=== PATIENT | male | born 1970 | race Caucasian/White ===

== ENCOUNTER 2022-01-03 15:56 | Inpatient (IN) | payer MEDICAID, SELFPAY ==
--- NOTE | ~2022-01-03 | XR_ITS ---
EXAMINATION: XR CHEST CLINICAL INFORMATION: Shortness of breath. COMPARISON: 01/03/2022 chest radiograph. TECHNIQUE: Frontal view of the chest was obtained. FINDINGS: Mild increased linear markings are seen at the left lung base in the retrocardiac region. The left upper lung field and right lung are clear. The heart and mediastinal structures are unremarkable. XR/XR chest 1V IMPRESSION: Left basilar infrahilar atelectasis and/or infiltrate represents interval worsening from the previous study.
--- NOTE | ~2022-01-03 | XR_ITS ---
EXAMINATION: XR CHEST CLINICAL INFORMATION: SOB COMPARISON: Chest 03/15/2020 TECHNIQUE: Frontal view of the chest was obtained. FINDINGS: The lungs are well-expanded and clear. The heart size and pulmonary vascularity is normal. There is mild spondylosis of dorsal spine. No lytic process. XR/XR chest 1V IMPRESSION: Unremarkable chest exam.
--- NOTE | ~2022-01-03 | CT_ITS ---
EXAMINATION: CT ORBIT WITH CONTRAST CLINICAL INFORMATION: Left periorbital infection/swelling. COMPARISON: CT head dated 04/04/2019. TECHNIQUE: Contiguous axial CT images of the orbits were obtained following the IV administration of 85 mL Omnipaque 350 contrast. Multiplanar reformats were provided and reviewed. This CT examination was performed using dose optimization techniques as appropriate, variously including the following: *Automated exposure control. *Adjustment of mA and/or kV according to patient size (this includes techniques or standardized protocols for targeted exams where dose is matched to indication/reason for exam; i.e. extremities or head). *Use of iterative reconstruction technique. DLP: 217 mGy-cm FINDINGS: The yip of the maxillary, frontal, and sphenoid sinuses are well-preserved. The lamina papyracea is intact. The nasal septum is slightly deviated to the right. There is no fracture of the maxilla, mandible, or pterygoid plates. There is mild asymmetric skin thickening within the left preorbital space with mild enhancement, consistent with cellulitis. No organized fluid collection/abscess formation. The yip of the orbit are intact. The globes and retro-orbital fat is preserved. There is diffuse mucoperiosteal thickening throughout the visualized paranasal sinuses with partial opacification of the ethmoid sinuses, increased when compared to the prior CT and consistent with chronic sinusitis. No associated air-fluid level. The visualized portions of the brain are unremarkable. CT/CT orbit BI w con IMPRESSION: Left preorbital soft tissue swelling and enhancement consistent with cellulitis. No organized fluid collection/abscess formation. The retro-orbital fat is unremarkable without evidence of involvement.
[2022-01-03 16:00] VITALS: BP 131/78; PULSE 107; RESP 20; TEMP 36.3; O2SAT 90; BMI 25.7
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
[2022-01-03 16:52] LABS: MANUAL DIFF FLAG NO
[2022-01-03 16:53] LABS: Basophils Absolute Auto 0.1 X10*3/uL (0.0-0.2); Basophils Percent Auto 0.9 % (0-2); Eosinophils Absolute Auto 0.7 X10*3/uL (0.0-0.4); Eosinophils Percent Auto 6.6 % (0-4); Hematocrit 34.3 % (42.0-52.0); Hemoglobin 11.1 g/dl (14.0-18.0); Imm Gran Abs Auto 0.03 X10*3/uL (0.00-0.03); Imm Gran Pct Auto 0.3 % (0.0-0.4); Lymphocytes Absolute Auto 1.1 X10*3/uL (1.2-4.9); Lymphocytes Percent Auto 10.7 % (20-40); Mean Corpuscular HGB Conc 32.4 g/dl (31.0-36.0); Mean Corpuscular Hemoglobin 28.9 pg (27.0-33.0); Mean Corpuscular Volume 89.3 fL (80.0-98.0); Mean Platelet Volume 9.9 fL (9.4-12.4); Monocytes Absolute Auto 0.6 X10*3/uL (0.1-1.2); Monocytes Percent Auto 5.8 % (2-11); Neutrophils Absolute Auto 7.9 x10*3/uL (2.0-8.3); Neutrophils Percent Auto 75.7 % (45-73); Platelet Count 344 X10*3/uL (160-400); Red Blood Count 3.84 X10*6/uL (4.60-5.80); Red Cell Distribution Width 13.5 % (11.0-16.0); White Blood Count 10.4 X10*3/uL (4.8-10.8)
[2022-01-03 17:13] VITALS: BP 113/75; PULSE 80; RESP 12; TEMP 36.6; O2SAT 94
[2022-01-03 17:42] LABS: Alanine Aminotransferase 31 U/L (0-40); Albumin Level 3.8 g/dL (3.5-5.0); Alkaline Phosphatase 79 U/L (39-117); Anion Gap 12 (12-20); Aspartate Amino Transferase 52 U/L (5-37); Bilirubin Total 0.5 mg/dL (0.0-1.0); Blood Urea Nitrogen 14 mg/dL (9-16); Calcium 8.9 mg/dL (8.4-10.2); Carbon Dioxide 27 mmol/L (22-29); Chloride 105 mmol/L (96-108); Creatinine Clr Calc Pharmacy 98.3; Estimated Glomerular Filt Rate > 60; Glucose Random 115 mg/dL (60-115); Potassium 3.8 mmol/L (3.3-5.1); Sodium 140 mmol/L (135-145); Total Protein 6.2 g/dL (6.5-8.0)
[2022-01-03] MEDS: iohexoL 350 MG/ML 100 ML INFUS..BTL IV (18:25)
[2022-01-03] MEDS: Fluorescein Sodium STRIP 1 STRIP EYE-LEFT (19:06)
[2022-01-03] MEDS: Tetracaine HCl/PF 0.5% Oph Sol 4 ML DROPS 1 DROP EYE-LEFT (19:07)
--- NOTE | 2022-01-03 19:09 | PHA.MEDREC ---
Pharmacy Consult ? Medication Reconciliation Pharmacy has completed the medication reconciliation. Spoke with the patient who states he was on suboxone and methadone at one point but hasn't taken anything in weeks because he fell off .
--- NOTE | 2022-01-03 19:43 | PC.NURSE ---
MD Anglin made aware that pt has not had cultures drawn prior to ABX administration, per MD roberts to give ABX without cultures prior
[2022-01-03] MEDS: Piperacillin Sodium/Tazobactam 4.5 GM in 0.9 % Sodium Chloride 100 ML IV (19:45)
[2022-01-03 20:20] LABS: COVID-19 Test Negative (Negative)
[2022-01-03] MEDS: vancomycin HCL 1,000 MG in 0.9 % Sodium Chloride 250 ML 270 MG IV (20:21)
[2022-01-03 21:35] VITALS: BP 119/74; PULSE 82; RESP 14; O2SAT 96
--- NOTE | 2022-01-03 22:56 | PM.IMHP ---
History of Present Illness Date of Service: 01/03/22 Chief Complaint: Left eye pain 51-year-old male with a past medical history of anxiety, depression, opiate abuse presented to the hospital with a chief complaint of left eye pain for the past 4 days. Patient is poor historian, less cooperative during the interview/examination. Patient shouting leave me alone ; 'why do you ask all the questions'; Mentions that he has pain in his eyes for the past 4 days hence he came to the hospital. Denies any fevers and chills. Denies any headaches numbness tingling or focal weakness. Review of all other systems is limited. ER course: Per ER team patient on presentation noted to be somnolent, admitted that he uses heroin; also admitted that he is homeless to the ER staff; on ER physician examination patient noted to have left eye erythema, conjunctival redness, extraocular movements are intact, patient able to count fingers, CT head showed pre are pale cellulitis; given IV vancomycin and Zosyn. Admitted for further management. REPLACED BY [facility] Medical History (Updated 01/26/22 @ 21:48 by Siomara Marie MD) Anxiety Depression Opioid use disorder Pertinent family history: Patient did not provide information Social History Household Members: None Housing: Homeless Do you presently have visiting nurse or other home services: No Patient Tobacco Use Status: Current everyday Tobacco user Tobacco use type: Cigarette Cigarettes Per Day: 6 Substance Use Type: Crack/Cocaine and Heroin Advance Directives: No Advance Directives Information Provided: No service: No Meds Allergies Allergy/AdvReac Type Severity Reaction Status Date / Time No Known Allergies Allergy Unverified 05/22/20 16:48 [No Known Allergies*] Active Medications: Current Medications Vancomycin HCl 1,000 mg/ (Sodium Chloride) 270 mls @ 270 mls/hr IV Q12H HI Piperacillin Sod/Tazobactam (Sod 3.375 gm/ Sodium Chloride) 50 mls @ 100 mls/hr IV Q6H HI Pharmacy Consult (Consult Rx Perform Med Rec) 1 each MISCELLANE ONCE PRN PRN Reason: Consult order Pharmacy Consult (Consult Rx Vancomycin Dosing) 1 each MISCELLANE DAILY PRN PRN Reason: Consult order Physical Exam Vital Signs and Narrative: Vital Signs: Last Vital Signs Temp 97.8 F 01/03/22 17:13 Pulse 82 01/03/22 21:35 Resp 14 01/03/22 21:35 BP 119/74 01/03/22 21:35 Pulse Ox 96 01/03/22 21:35 Oxygen Flow Rate 3 01/03/22 16:00 BMI result Body Mass Index 25.7 Gen: Appears be in no acute distress HEENT: NCAT, Moist mucosa.; noted left eye superficial erythema of the eyelids, eyelids are closed with pus-like discharge, upon opening has conjunctival injection, extraocular movements are intact. Rest of the exam is limited as the patient is less cooperative Pulmonary: Vesicular breath sounds, fair air entry CVS: Normal S1-S2 Abdomen: BS+, Soft, Nontender Extremities: Warm well perfused; Neuro: Alert and awake. Moves all extremities equally Results Labs CBC and Chem 7: 01/04/22 05:55 01/07/22 05:30 Labs: Laboratory Results - last 24 hr 01/03/22 01/03/22 01/03/22 16:48 17:12 19:59 MCV 89.3 MCH 28.9 MCHC 32.4 RDW 13.5 Plt Count 344 MPV 9.9 Immature Gran % (Auto) 0.3 Neut % (Auto) 75.7 H Lymph % (Auto) 10.7 L [place] % (Auto) 5.8 Eos % (Auto) 6.6 H Baso % (Auto) 0.9 Lymph # (Auto) 1.1 L [place] # (Auto) 0.6 Eos # (Auto) 0.7 H Baso # (Auto) 0.1 Abs Immat Gran (auto) 0.03 Absolute Neuts (auto) 7.9 Absolute Nucleated RBC 0.000 Nucleated RBC % (auto) 0.0 Anion Gap 12 Estim Creat Clear Calc 98.3 Estimated GFR > 60 Random Glucose 115 Calcium 8.9 Total Bilirubin 0.5 AST 52 H ALT 31 Alkaline Phosphatase 79 Total Protein 6.2 L Albumin 3.8 COVID-19 (AYO) Negative COVID-19 Clin Com See Note Imaging Radiologist's Impressions: Impressions Chest X-Ray 01/03/22 16:39 IMPRESSION: Unremarkable chest exam. Orbit CT 01/03/22 18:25 IMPRESSION: Left preorbital soft tissue swelling and enhancement consistent with cellulitis. No organized fluid collection/abscess formation. The retro-orbital fat is unremarkable without evidence of involvement. Assessment and Plan (1) Preseptal cellulitis of left eye: Status: Acute Plan 51-year-old male with a past medical history of anxiety, depression, opiate abuse presented to the hospital with a chief complaint of left eye pain for the past 4 days. Noted to have following conditions Left preorbital cellulitis/left conjunctivitis: Continue IV vancomycin and Zosyn. Id consult for further recommendations. History of opiate abuse:COWS protocol; clonidine p.r.n.. Addiction Medicine consult Homelessness: aquaculture worker consult DVT prophylaxis: Subcu heparin Code status: Full code Quality Stroke Does the patient have a stroke diagnosis?: No VTE Prior VTE?: No VTE Risk Level:: Medical - moderate - high VTE Device Contraindication: Treatment Not Indicated VTE Drug Contraindication: N/A - Med Ordered
[2022-01-03 23:07] VITALS: BP 145/95; PULSE 73; RESP 14; TEMP 36.8; O2SAT 94
[2022-01-04] MEDS: Piperacillin Sodium/Tazobactam 3.375 GM in 0.9 % Sodium Chloride 50 ML IV ×4 (02:42→21:35)
[2022-01-04] MEDS: Heparin Sodium,Porcine 5,000 UNIT/ML VIAL 5000 UNIT SUBCUT ×4 (02:46→22:13)
--- NOTE | 2022-01-04 02:52 | PC.NURSE ---
pt a&o, no sob or chest pain. pt ambulated to bathroom with a steady gait. Medicated per Nov.
[2022-01-04] MEDS: Dextrose 5 % and 0.45 % NaCl 1,000 ML 100 ML IVCONT ×3 (03:11→23:25)
--- NOTE | 2022-01-04 03:16 | PC.NURSE ---
medications delayed due to being in with a critical pt.
[2022-01-04] MEDS: 0.9 % Sodium Chloride Flush 3 ML SYRINGE IVFLUSH ×2 (03:18→21:36)
[2022-01-04 04:55] VITALS: BMI 24.5
[2022-01-04 04:57] VITALS: BP 138/84; PULSE 82; RESP 18; TEMP 36.6; O2SAT 97
[2022-01-04 06:42] LABS: MANUAL DIFF FLAG NO
[2022-01-04 07:05] LABS: Basophils Absolute Auto 0.1 X10*3/uL (0.0-0.2); Eosinophils Absolute Auto 0.8 X10*3/uL (0.0-0.4); Hematocrit 36.6 % (42.0-52.0); Hemoglobin 11.8 g/dl (14.0-18.0); Imm Gran Abs Auto 0.02 X10*3/uL (0.00-0.03); Imm Gran Pct Auto 0.2 % (0.0-0.4); Lymphocytes Absolute Auto 1.3 X10*3/uL (1.2-4.9); Lymphocytes Percent Auto 15.5 % (20-40); Mean Corpuscular HGB Conc 32.2 g/dl (31.0-36.0); Mean Corpuscular Hemoglobin 29.1 pg (27.0-33.0); Mean Corpuscular Volume 90.4 fL (80.0-98.0); Mean Platelet Volume 10.2 fL (9.4-12.4); Monocytes Absolute Auto 0.5 X10*3/uL (0.1-1.2); Monocytes Percent Auto 6.2 % (2-11); Neutrophils Absolute Auto 5.8 x10*3/uL (2.0-8.3); Neutrophils Percent Auto 68.1 % (45-73); Platelet Count 341 X10*3/uL (160-400); Red Blood Count 4.05 X10*6/uL (4.60-5.80); Red Cell Distribution Width 13.7 % (11.0-16.0); White Blood Count 8.6 X10*3/uL (4.8-10.8)
[2022-01-04 07:24] VITALS: BP 142/84; PULSE 84; RESP 18; TEMP 36.8; O2SAT 96
[2022-01-04 07:34] LABS: Anion Gap 13 (12-20); Blood Urea Nitrogen 8 mg/dL (9-16); Calcium 8.7 mg/dL (8.4-10.2); Carbon Dioxide 28 mmol/L (22-29); Chloride 104 mmol/L (96-108); Creatinine Clr Calc Pharmacy 109.4; Estimated Glomerular Filt Rate > 60; Glucose Random 107 mg/dL (60-115); Potassium 3.6 mmol/L (3.3-5.1); Sodium 141 mmol/L (135-145)
[2022-01-04] MEDS: vancomycin HCL 1,000 MG in 0.9 % Sodium Chloride 250 ML 270 MG IV ×2 (09:14→22:13)
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
--- NOTE | 2022-01-04 11:10 | HO.PM.IMPN ---
Subjective Subjective Date of Service: 01/04/22 Review of Systems Follow up periorbital cellulitis still with significant swelling no pain Physical Exam Vital Signs: Vital Signs: Last Vital Signs Temp 98.2 F 01/04/22 07:24 Pulse 84 01/04/22 07:24 Resp 18 01/04/22 07:24 BP 142/84 H 01/04/22 07:24 Pulse Ox 96 01/04/22 07:24 Oxygen Flow Rate 3 01/03/22 16:00 BMI result Body Mass Index 24.5 Appearing in no acute distress lung sounds are clear to auscultation heart regular rate rhythm, clear S1, S2 positive bowel sounds, abdomen is soft, nontender neuro patient is alert x3, no focal deficits Left eye injected with green mucous, no visual disturbances, edema to eye lid Objective Data Active Medications Acetaminophen (Acetaminophen 325 Mg Tablet) 650 mg PO Q6H PRN PRN Reason: Pain, Mild (Pain Scale 1-3) Clonidine HCl (Clonidine Hcl 0.1 Mg Tablet) 0.1 mg PO BID PRN; Protocol PRN Reason: anxiety/restlessness Heparin Sodium (Porcine) (Heparin Sodium,Porcine 5,000 Unit/Ml Vial) 5,000 unit SUBCUT Q8H [facility] Last Admin: 01/04/22 09:14 Dose: 5,000 unit Documented by: DANNY Hydromorphone HCl (Hydromorphone Hcl 1 Mg/Ml Syringe) 0.5 mg IVPUSH Q4H PRN; Protocol PRN Reason: Pain, Severe (Pain Scale 7-10) Vancomycin HCl 1,000 mg/ (Sodium Chloride) 270 mls @ 270 mls/hr IV Q12H [facility] Last Infusion: 01/04/22 10:47 Dose: 0 mls/hr Documented by: DANNY Piperacillin Sod/Tazobactam (Sod 3.375 gm/ Sodium Chloride) 50 mls @ 100 mls/hr IV Q6H [facility] Last Infusion: 01/04/22 09:45 Dose: 0 mls/hr Documented by: DANNY Dextrose/Sodium Chloride (D51/2ns) 1,000 mls @ 100 mls/hr IVCONT .Q10H [facility] Last Infusion: 01/04/22 10:47 Dose: 100 mls/hr Documented by: DANNY Melatonin (Melatonin 3 Mg Tablet) 6 mg PO BEDTIME PRN PRN Reason: Insomnia Pharmacy Consult (Consult Rx Perform Med Rec) 1 each MISCELLANE ONCE PRN PRN Reason: Consult order Pharmacy Consult (Consult Rx Vancomycin Dosing) 1 each MISCELLANE DAILY PRN PRN Reason: Consult order Senna (Sennosides 8.6 Mg Tablet) 17.2 mg PO BEDTIME PRN PRN Reason: Constipation Sodium Chloride (0.9 % Sodium Chloride Flush 3 Ml Syringe) 3 ml IVFLUSH QSHIFT HI Last Admin: 01/04/22 09:15 Dose: Not Given Documented by: DANNY Non-Admin Reason: IV Running Labs CBC & Chem 7: 01/04/22 05:55 01/04/22 05:55 Labs: Laboratory Results - last 24 hr 01/03/22 01/03/22 01/03/22 16:48 17:12 19:59 MCV 89.3 MCH 28.9 MCHC 32.4 RDW 13.5 Plt Count 344 MPV 9.9 Immature Gran % (Auto) 0.3 Neut % (Auto) 75.7 H Lymph % (Auto) 10.7 L [place] % (Auto) 5.8 Eos % (Auto) 6.6 H Baso % (Auto) 0.9 Lymph # (Auto) 1.1 L [place] # (Auto) 0.6 Eos # (Auto) 0.7 H Baso # (Auto) 0.1 Abs Immat Gran (auto) 0.03 Absolute Neuts (auto) 7.9 Absolute Nucleated RBC 0.000 Nucleated RBC % (auto) 0.0 Anion Gap 12 Estim Creat Clear Calc 98.3 Estimated GFR > 60 Random Glucose 115 Calcium 8.9 Total Bilirubin 0.5 AST 52 H ALT 31 Alkaline Phosphatase 79 Total Protein 6.2 L Albumin 3.8 COVID-19 (AYO) Negative COVID-19 Clin Com See Note 01/04/22 01/04/22 05:55 05:55 MCV 90.4 MCH 29.1 MCHC 32.2 RDW 13.7 Plt Count 341 MPV 10.2 Immature Gran % (Auto) 0.2 Neut % (Auto) 68.1 Lymph % (Auto) 15.5 L [place] % (Auto) 6.2 Eos % (Auto) 9.0 H Baso % (Auto) 1.0 Lymph # (Auto) 1.3 [place] # (Auto) 0.5 Eos # (Auto) 0.8 H Baso # (Auto) 0.1 Abs Immat Gran (auto) 0.02 Absolute Neuts (auto) 5.8 Absolute Nucleated RBC 0.000 Nucleated RBC % (auto) 0.0 Anion Gap 13 Estim Creat Clear Calc 109.4 Estimated GFR > 60 Random Glucose 107 Calcium 8.7 Total Bilirubin AST ALT Alkaline Phosphatase Total Protein Albumin COVID-19 (AYO) COVID-19 Clin Com Assessment and Plan (1) Preseptal cellulitis of left eye: Status: Acute Plan 51-year-old male with a past medical history of anxiety, depression, opiate abuse presented to the hospital with a chief complaint of left eye pain for the past 4 days.? Noted to have following conditions Left periorbital cellulitis/left conjunctivitis Continue IV vancomycin and Zosyn. Id consult for further recommendations. History of opiate abuse COWS protocol; clonidine p.r.n..? Addiction Medicine consult DVT prophylaxis:? Subcu heparin Code status:? Full code Attending Dr. Mccoy Quality Stroke Does the patient have a stroke diagnosis?: No VTE Prior VTE?: No VTE Risk Level:: Medical - moderate - high VTE Device Contraindication: Treatment Not Indicated VTE Drug Contraindication: N/A - Med Ordered
[2022-01-04 11:15] VITALS: BP 145/82; PULSE 62; RESP 18; TEMP 36.6; O2SAT 96
--- NOTE | 2022-01-04 13:04 | P.CNID_ITS ---
History of Present Illness Data of Consult Service Date: 01/04/22 Requesting physician: Annemarie Domínguez Primary Care Provider: [facility] Reason for consult: preseptal left eye cellulitis He presents with left eye swelling and discomfort He has CT left eye preseptal cellulitis. He is homeless He also has has left thigh redness. Review of Systems Review of Systems: Yes all other systems are reviewed and are negative PMFSH Past Medical History Medical History Anxiety Depression Family History Family history: reviewed and not pertinent Social History Social History Household Members: None Housing: Homeless Do you presently have visiting nurse or other home services: No Patient Tobacco Use Status: Current everyday Tobacco user Tobacco use type: Cigarette Cigarettes Per Day: 6 Smoked in Last 30 Days: Yes Patient Interested in Nicotine Replacement: Yes Patient Given Instructions on How to Stop Smoking: Yes Date Education Initiated: 01/04/22 Use of substances other than those prescribed or required for medical reasons: Yes Substance Use Type: Crack/Cocaine and Heroin Substance Use Frequency: Daily Currently Displaying Signs/Symptoms of Drug Intoxication Withdrawal: No Have you been hit, kicked, punched, or otherwise hurt by someone within the past year? If so, by whom?: No Do you feel safe in your current relationship?: Yes Is there a partner from a previous relationship who is making you feel unsafe now?: No Are you made to feel afraid or neglected: No Advance Directives: No Advance Directives Information Provided: No Do you have thoughts of harming others: None Recently lost weight without trying: No service: No Meds Allergies Allergy/AdvReac Type Severity Reaction Status Date / Time No Known Allergies Allergy Unverified 05/22/20 16:48 [No Known Allergies*] Active Medications: Current Medications Acetaminophen (Acetaminophen 325 Mg Tablet) 650 mg PO Q6H PRN PRN Reason: Pain, Mild (Pain Scale 1-3) Clonidine HCl (Clonidine Hcl 0.1 Mg Tablet) 0.1 mg PO BID PRN; Protocol PRN Reason: anxiety/restlessness Heparin Sodium (Porcine) (Heparin Sodium,Porcine 5,000 Unit/Ml Vial) 5,000 unit SUBCUT Q8H HI Last Admin: 01/04/22 09:14 Dose: 5,000 unit Documented by: Hydromorphone HCl (Hydromorphone Hcl 1 Mg/Ml Syringe) 0.5 mg IVPUSH Q4H PRN; Protocol PRN Reason: Pain, Severe (Pain Scale 7-10) Vancomycin HCl 1,000 mg/ (Sodium Chloride) 270 mls @ 270 mls/hr IV Q12H [facility] Last Infusion: 01/04/22 10:47 Dose: Infused Documented by: Piperacillin Sod/Tazobactam (Sod 3.375 gm/ Sodium Chloride) 50 mls @ 100 mls/hr IV Q6H [facility] Last Infusion: 01/04/22 09:45 Dose: Infused Documented by: Dextrose/Sodium Chloride (D51/2ns) 1,000 mls @ 100 mls/hr IVCONT .Q10H [facility] Last Infusion: 01/04/22 10:47 Dose: 100 mls/hr Documented by: Melatonin (Melatonin 3 Mg Tablet) 6 mg PO BEDTIME PRN PRN Reason: Insomnia Pharmacy Consult (Consult Rx Perform Med Rec) 1 each MISCELLANE ONCE PRN PRN Reason: Consult order Pharmacy Consult (Consult Rx Vancomycin Dosing) 1 each MISCELLANE DAILY PRN PRN Reason: Consult order Senna (Sennosides 8.6 Mg Tablet) 17.2 mg PO BEDTIME PRN PRN Reason: Constipation Sodium Chloride (0.9 % Sodium Chloride Flush 3 Ml Syringe) 3 ml IVFLUSH QSHIFT [facility] Last Admin: 01/04/22 09:15 Dose: Not Given Documented by: Home Medications Medication Instructions Recorded Confirmed Last Taken Type No Known Home Meds 01/03/22 01/03/22 Unknown History Physical Exam Vital Signs: Vital Signs: Last Vital Signs Temp 97.8 F 01/04/22 11:15 Pulse 62 01/04/22 11:15 Resp 18 01/04/22 11:15 BP 145/82 H 01/04/22 11:15 Pulse Ox 96 01/04/22 11:15 Oxygen Flow Rate 3 01/03/22 16:00 BMI result Body Mass Index 24.5 Const: General: cooperative HEENT: Other: left eye swollen,closed says could see earlier Mouth: Normal oral and palatal mucosa present Resp: Effort & Inspection: normal respiratory effort Cardio: Rate: regular rate Rhythm: regular rhythm GI: Palpation (GI): Soft to palpation and nontender Extrem: Other: slight redness upper left thigh Results Labs CBC & Chem 7: 01/04/22 05:55 01/04/22 05:55 Labs: Short CBC 01/03/22 01/04/22 Range/Units 16:48 05:55 WBC 10.4 8.6 (4.8-10.8) X10*3/uL Hgb 11.1 L 11.8 L (14.0-18.0) g/dl Hct 34.3 L 36.6 L (42.0-52.0) % Plt Count 344 341 (160-400) X10*3/uL BMP 01/03/22 01/04/22 17:12 05:55 Sodium 140 141 Potassium 3.8 3.6 Chloride 105 104 Carbon Dioxide 27 28 BUN 14 8 L Creatinine 0.79 0.71 Calcium 8.9 8.7 Liver Function 01/03/22 Range/Units 17:12 Total Bilirubin 0.5 (0.0-1.0) mg/dL AST 52 H (5-37) U/L ALT 31 (0-40) U/L Alkaline Phosphatase 79 (39-117) U/L Albumin 3.8 (3.5-5.0) g/dL Assessment and Plan (1) Preseptal cellulitis of left eye: Status: Acute Organisms can include gram negative,gram positive include anerobes,Pseudomonas Would like to narrow spectrum when improving (2) Heroin abuse: Status: Acute Plan Vancomycin and Zosyn for now. Would narrow when able. Would check HIV test and Hepatitis C
[2022-01-04 13:33] LABS: Fentanyl, urine POSITIVE (Not Detect)
[2022-01-04 13:40] LABS: Amphetamine Screen Urine Not Detected (Not Detect); Barbiturates, Urine Not Detected (Not Detect); Benzodiazepines Screen Urine Not Detected (Not Detect); Cannabinoid Screen Urine Not Detected (Not Detect); Cocaine Screen Urine POSITIVE (Not Detect); Phencyclidine Screen Urine Not Detected (Not Detect)
[2022-01-04] MEDS: methADONE HCl 20 MG/2 ML ORAL.CONC PO (14:20)
[2022-01-04 14:43] LABS: Opiate Screen Urine POSITIVE (Not Detect)
[2022-01-04 14:53] VITALS: BP 132/78; PULSE 76; RESP 16; TEMP 36.7; O2SAT 95
[2022-01-04 16:00] VITALS: RESP 19
--- NOTE | 2022-01-04 16:16 | MHC.RECOVRN ---
Met with pt to follow up after methadone initiation. Pt laying in bed, calm, easily engaged in conversation. Pt reports decrease in withdrawal symptoms after 20 mg, however, rhinorrhea still present. Pt would like to continue titration. Discussed with Neela Oneil APRN.
[2022-01-04] MEDS: methADONE HCl 20 MG/2 ML ORAL.CONC 10 MG PO (18:02)
--- NOTE | 2022-01-04 20:07 | HO.ADDICTCON ---
History of Present Illness Date of Service: 01/04/2022 Chief Complaint: preorbital cellulitis Reason for Consult: OUD Requesting physician: Jose Loaiza Sources of Information: patient interviewed and chart reviewed HPI Narrative: Patient seen X2 by this quality analyst/technical writer. Currently medically admitted with left eye cellulitis. Reporting appox 5 bags of heroin QD IN. Cocaine use.Denies alcohol use Denies history of overdose Reports history of suboxone and methadone, though unclear if either were ever actually prescribed. At time of initial interview patient experiencing acute withdrawal sx., yawning, chills, body aches, rhinorrhea, nausea. Discussed treatment options--initially requesting buprenorphine, then decided on methadone. Received one 20mg with good effect. Would like to continue dose titration Review of Systems Constitutional: Reports as per HPI Diagnostics Vital Signs (24Hr): Vital Signs - 24 hr 01/03/22 21:35 01/03/22 23:07 01/04/22 04:57 Temperature 98.2 F 98 F Pulse Rate 82 73 82 Respiratory Rate 14 14 18 Blood Pressure 119/74 145/95 H 138/84 Pulse Oximetry 96 94 97 01/04/22 07:24 01/04/22 11:15 01/04/22 14:53 Temperature 98.2 F 97.8 F 98.1 F Pulse Rate 84 62 76 Respiratory Rate 18 18 16 Blood Pressure 142/84 H 145/82 H 132/78 Pulse Oximetry 96 96 95 01/04/22 16:00 Temperature Pulse Rate Respiratory Rate 19 Blood Pressure Pulse Oximetry BMI result Body Mass Index 24.5 Labs Results: 01/04/22 05:55 01/04/22 05:55 Labs: Laboratory Results - last 48 hr 01/03/22 01/03/22 01/03/22 16:48 17:12 19:59 WBC 10.4 RBC 3.84 L Hgb 11.1 L Hct 34.3 L MCV 89.3 MCH 28.9 MCHC 32.4 RDW 13.5 Plt Count 344 MPV 9.9 Immature Gran % (Auto) 0.3 Neut % (Auto) 75.7 H Lymph % (Auto) 10.7 L [place] % (Auto) 5.8 Eos % (Auto) 6.6 H Baso % (Auto) 0.9 Lymph # (Auto) 1.1 L [place] # (Auto) 0.6 Eos # (Auto) 0.7 H Baso # (Auto) 0.1 Abs Immat Gran (auto) 0.03 Absolute Neuts (auto) 7.9 Absolute Nucleated RBC 0.000 Nucleated RBC % (auto) 0.0 Sodium 140 Potassium 3.8 Chloride 105 Carbon Dioxide 27 Anion Gap 12 BUN 14 Creatinine 0.79 Estim Creat Clear Calc 98.3 Estimated GFR > 60 Random Glucose 115 Calcium 8.9 Total Bilirubin 0.5 AST 52 H ALT 31 Alkaline Phosphatase 79 Total Protein 6.2 L Albumin 3.8 Urine Opiates Screen Urine Fentanyl Screen Ur Barbiturates Screen Ur Phencyclidine Scrn Ur Amphetamines Screen U Benzodiazepines Scrn Urine Cocaine Screen U Marijuana (THC) Screen COVID-19 (AYO) Negative COVID-19 Clin Com See Note 01/04/22 01/04/22 01/04/22 05:55 05:55 13:00 WBC 8.6 RBC 4.05 L Hgb 11.8 L Hct 36.6 L MCV 90.4 MCH 29.1 MCHC 32.2 RDW 13.7 Plt Count 341 MPV 10.2 Immature Gran % (Auto) 0.2 Neut % (Auto) 68.1 Lymph % (Auto) 15.5 L [place] % (Auto) 6.2 Eos % (Auto) 9.0 H Baso % (Auto) 1.0 Lymph # (Auto) 1.3 [place] # (Auto) 0.5 Eos # (Auto) 0.8 H Baso # (Auto) 0.1 Abs Immat Gran (auto) 0.02 Absolute Neuts (auto) 5.8 Absolute Nucleated RBC 0.000 Nucleated RBC % (auto) 0.0 Sodium 141 Potassium 3.6 Chloride 104 Carbon Dioxide 28 Anion Gap 13 BUN 8 L Creatinine 0.71 Estim Creat Clear Calc 109.4 Estimated GFR > 60 Random Glucose 107 Calcium 8.7 Total Bilirubin AST ALT Alkaline Phosphatase Total Protein Albumin Urine Opiates Screen POSITIVE H Urine Fentanyl Screen POSITIVE H Ur Barbiturates Screen Not Detected Ur Phencyclidine Scrn Not Detected Ur Amphetamines Screen Not Detected U Benzodiazepines Scrn Not Detected Urine Cocaine Screen POSITIVE H U Marijuana (THC) Screen Not Detected COVID-19 (AYO) COVID-19 Clin Com Imaging Radiology Impressions: ITS Impressions Chest X-Ray 01/03/22 16:39 IMPRESSION: Unremarkable chest exam. Orbit CT 01/03/22 18:25 IMPRESSION: Left preorbital soft tissue swelling and enhancement consistent with cellulitis. No organized fluid collection/abscess formation. The retro-orbital fat is unremarkable without evidence of involvement. Mental Status Exam Mental Status Exam Patient Appearance: Appropriate (hospital attire, eyes closed) Patient Behavior: Guarded Affect Description: Flat Judgement: Fair Medications Medications Current Medications Acetaminophen (Acetaminophen 325 Mg Tablet) 650 mg PO Q6H PRN PRN Reason: Pain, Mild (Pain Scale 1-3) Clonidine HCl (Clonidine Hcl 0.1 Mg Tablet) 0.1 mg PO BID PRN; Protocol PRN Reason: anxiety/restlessness Heparin Sodium (Porcine) (Heparin Sodium,Porcine 5,000 Unit/Ml Vial) 5,000 unit SUBCUT Q8H [facility] Last Admin: 01/04/22 14:21 Dose: 5,000 unit Documented by: Hydromorphone HCl (Hydromorphone Hcl 1 Mg/Ml Syringe) 0.5 mg IVPUSH Q4H PRN; Protocol PRN Reason: Pain, Severe (Pain Scale 7-10) Vancomycin HCl 1,000 mg/ (Sodium Chloride) 270 mls @ 270 mls/hr IV Q12H [facility] Last Infusion: 01/04/22 10:47 Dose: Infused Documented by: Piperacillin Sod/Tazobactam (Sod 3.375 gm/ Sodium Chloride) 50 mls @ 100 mls/hr IV Q6H [facility] Last Infusion: 01/04/22 15:07 Dose: Infused Documented by: Dextrose/Sodium Chloride (D51/2ns) 1,000 mls @ 100 mls/hr IVCONT .Q10H [facility] Last Admin: 01/04/22 14:22 Dose: 100 mls/hr Documented by: Melatonin (Melatonin 3 Mg Tablet) 6 mg PO BEDTIME PRN PRN Reason: Insomnia Methadone HCl (Methadone Hcl 20 Mg/2 Ml Oral.Conc) 35 mg PO DAILY COUNT [facility]CLUDES [facility] Pharmacy Consult (Consult Rx Perform Med Rec) 1 each MISCELLANE ONCE PRN PRN Reason: Consult order Pharmacy Consult (Consult Rx Vancomycin Dosing) 1 each MISCELLANE DAILY PRN PRN Reason: Consult order Senna (Sennosides 8.6 Mg Tablet) 17.2 mg PO BEDTIME PRN PRN Reason: Constipation Sodium Chloride (0.9 % Sodium Chloride Flush 3 Ml Syringe) 3 ml IVFLUSH QSHIFT [facility] Last Admin: 01/04/22 16:16 Dose: Not Given Documented by: Allergies Allergies Allergy/AdvReac Type Severity Reaction Status Date / Time No Known Allergies Allergy Unverified 05/22/20 16:48 [No Known Allergies*] Assessment & Plan Assessment & Plan (1) Opiate withdrawal: Status: Acute Code(s): F11.23 - Opioid dependence with withdrawal Assessment and Plan: additional 10mg methadone this evening (total of 30mg) 35mg tomorrow (01/05) and reassess for desire to continue titration (2) Opioid use disorder: Status: Acute Code(s): F11.90 - Opioid use, unspecified, uncomplicated I spent __45____ minutes with the patient and/or on the patient floor today, greater than?50% of which was spent counseling/coordinating care. [facility] Past Medical History Medical History Anxiety Depression Family History Family history: reviewed and not pertinent Social History Social History Household Members: None Housing: Homeless Do you presently have visiting nurse or other home services: No Patient Tobacco Use Status: Current everyday Tobacco user Tobacco use type: Cigarette Cigarettes Per Day: 6 Smoked in Last 30 Days: Yes Patient Interested in Nicotine Replacement: Yes Patient Given Instructions on How to Stop Smoking: Yes Date Education Initiated: 01/04/22 Use of substances other than those prescribed or required for medical reasons: Yes Substance Use Type: Crack/Cocaine and Heroin Substance Use Frequency: Daily Currently Displaying Signs/Symptoms of Drug Intoxication Withdrawal: No Have you been hit, kicked, punched, or otherwise hurt by someone within the past year? If so, by whom?: No Do you feel safe in your current relationship?: Yes Is there a partner from a previous relationship who is making you feel unsafe now?: No Are you made to feel afraid or neglected: No Advance Directives: No Advance Directives Information Provided: No Do you have thoughts of harming others: None Recently lost weight without trying: No service: No
[2022-01-04] MEDS: HYDROmorphone HCl 1 MG/ML SYRINGE 0.5 MG IVPUSH (23:31)
[2022-01-04] MEDS: cloNIDine HCL 0.1 MG TABLET PO (23:34)
[2022-01-04 23:47] VITALS: BP 152/82; PULSE 70; RESP 18; TEMP 36.9; O2SAT 95
[2022-01-05] VITALS (9 sets, daily range): BP systolic 104–142; BP diastolic 56–76; PULSE 54–93; RESP 14–18; TEMP 36.2–37.1; O2SAT 91–98
[2022-01-05] MEDS: Piperacillin Sodium/Tazobactam 3.375 GM in 0.9 % Sodium Chloride 50 ML IV ×4 (01:33→20:19)
[2022-01-05 04:39] LABS: HIV AB/AG Nonreactive (Nonreactive); HIV Num 1 0.07 S/CO (0.00-0.99); ~HepC Num1 0.14 S/CO (0.00-0.79); ~Hepatitis C Antibody Nonreactive (Nonreactive)
[2022-01-05] MEDS: Heparin Sodium,Porcine 5,000 UNIT/ML VIAL 5000 UNIT SUBCUT ×3 (05:54→23:33)
[2022-01-05 06:53] LABS: Vancomycin Trough 8.9 mcg/mL (10.0-20.0)
[2022-01-05 07:43] LABS: Estimated Glomerular Filt Rate > 60
[2022-01-05] MEDS: methADONE HCl 20 MG/2 ML ORAL.CONC 35 MG PO (07:48)
[2022-01-05] MEDS: 0.9 % Sodium Chloride Flush 3 ML SYRINGE IVFLUSH ×2 (07:49→15:45)
--- NOTE | 2022-01-05 07:52 | HE.PHANOTE ---
Patient trough and predicted auc was low, increased dose to 1250 mg q12 predicted auc = 438, trough 11.5, next trough 01/06@1800
[2022-01-05] MEDS: vancomycin HCL 1,250 MG in 0.9 % Sodium Chloride 250 ML 166.67 MG IV ×2 (08:31→21:02)
[2022-01-05] MEDS: methylPREDNISolone Sod Succ 40 MG/ML VIAL IVPUSH ×2 (08:33→15:45)
--- NOTE | 2022-01-05 09:11 | P.PNIM_ITS ---
Subjective Subjective Date of Service: 01/05/22 Review of Systems Follow up periorbital cellulitis NO pain swelling decreasing c/o sob and wheezing Physical Exam Vital Signs: Vital Signs: Last Vital Signs Temp 97.8 F 01/05/22 07:05 Pulse 66 01/05/22 07:05 Resp 18 01/05/22 07:05 BP 142/74 H 01/05/22 07:05 Pulse Ox 95 01/05/22 07:05 Oxygen Flow Rate 3 01/03/22 16:00 BMI result Body Mass Index 24.5 Appearing in no acute distress lung sounds exp wheezing heart regular rate rhythm, clear S1, S2 positive bowel sounds, abdomen is soft, nontender neuro patient is alert x3, no focal deficits Dry crusting to left eye, some yellow discharge, significantly improved swelling Objective Data Active Medications Acetaminophen (Acetaminophen 325 Mg Tablet) 650 mg PO Q6H PRN PRN Reason: Pain, Mild (Pain Scale 1-3) Albuterol Sulfate (Albuterol Sulfate (0.083%) 2.5 Mg/3 Ml Vial.Neb) 2.5 mg INHALE RQ4H WHILE AWAKE [facility] Clonidine HCl (Clonidine Hcl 0.1 Mg Tablet) 0.1 mg PO BID PRN; Protocol PRN Reason: anxiety/restlessness Last Admin: 01/04/22 23:34 Dose: 0.1 mg Documented by: HOLLEY Heparin Sodium (Porcine) (Heparin Sodium,Porcine 5,000 Unit/Ml Vial) 5,000 unit SUBCUT Q8H [facility] Last Admin: 01/05/22 05:54 Dose: 5,000 unit Documented by: HOLLEY Hydromorphone HCl (Hydromorphone Hcl 1 Mg/Ml Syringe) 0.5 mg IVPUSH Q4H PRN; Protocol PRN Reason: Pain, Severe (Pain Scale 7-10) Last Admin: 01/04/22 23:31 Dose: 0.5 mg Documented by: HOLLEY Piperacillin Sod/Tazobactam (Sod 3.375 gm/ Sodium Chloride) 50 mls @ 100 mls/hr IV Q6H [facility] Last Infusion: 01/05/22 08:32 Dose: 0 mls/hr Documented by: ANGELA Dextrose/Sodium Chloride (D51/2ns) 1,000 mls @ 100 mls/hr IVCONT .Q10H [facility] Last Admin: 01/04/22 23:25 Dose: 100 mls/hr Documented by: HOLLEY Vancomycin HCl 1,250 mg/ (Sodium Chloride) 250 mls @ 166.667 mls/hr IV Q12H [facility] Last Admin: 01/05/22 08:31 Dose: 166.67 mls/hr Documented by: ANGELA Melatonin (Melatonin 3 Mg Tablet) 6 mg PO BEDTIME PRN PRN Reason: Insomnia Methadone HCl (Methadone Hcl 20 Mg/2 Ml Oral.Conc) 35 mg PO DAILY [facility] Last Admin: 01/05/22 07:48 Dose: 35 mg Documented by: ANGELA Methylprednisolone Sodium Succinate (Methylprednisolone Sod Succ 40 Mg/Ml Vial) 40 mg IVPUSH Q8H [facility] Last Admin: 01/05/22 08:33 Dose: 40 mg Documented by: ANGELA Pharmacy Consult (Consult Rx Perform Med Rec) 1 each MISCELLANE ONCE PRN PRN Reason: Consult order Pharmacy Consult (Consult Rx Vancomycin Dosing) 1 each MISCELLANE DAILY PRN PRN Reason: Consult order Senna (Sennosides 8.6 Mg Tablet) 17.2 mg PO BEDTIME PRN PRN Reason: Constipation Sodium Chloride (0.9 % Sodium Chloride Flush 3 Ml Syringe) 3 ml IVFLUSH QSHIFT [facility] Last Admin: 01/05/22 07:49 Dose: 3 ml Documented by: ANGELA Labs CBC & Chem 7: 01/04/22 05:55 01/05/22 06:11 Labs: Laboratory Results - last 24 hr 01/04/22 01/04/22 01/05/22 05:55 13:00 06:11 Estim Creat Clear Calc Estimated GFR Vancomycin Trough 8.9 L Urine Opiates Screen POSITIVE H Urine Fentanyl Screen POSITIVE H Ur Barbiturates Screen Not Detected Ur Phencyclidine Scrn Not Detected Ur Amphetamines Screen Not Detected U Benzodiazepines Scrn Not Detected Urine Cocaine Screen POSITIVE H U Marijuana (THC) Screen Not Detected Hepatitis C Ab (EIA) Nonreactive HIV 1&2 Ab/P24 Ag 4thGn Nonreactive 01/05/22 06:11 Estim Creat Clear Calc 116.0 Estimated GFR > 60 Vancomycin Trough Urine Opiates Screen Urine Fentanyl Screen Ur Barbiturates Screen Ur Phencyclidine Scrn Ur Amphetamines Screen U Benzodiazepines Scrn Urine Cocaine Screen U Marijuana (THC) Screen Hepatitis C Ab (EIA) HIV 1&2 Ab/P24 Ag 4thGn Assessment and Plan (1) Preseptal cellulitis of left eye: Status: Acute Plan 51-year-old male with a past medical history of anxiety, depression, opiate abuse presented to the hospital with a chief complaint of left eye pain for the past 4 days.? Noted to have following conditions Acute Asthma exacerbation exp wheezing scheduled duonebs and solumedrol supplemental oxygen as needed Left periorbital cellulitis/conjunctivitis decreased swelling dry crusting Continue IV vancomycin and Zosyn. Id following History of opiate abuse COWS protocol; clonidine p.r.n..? Addiction Medicine consult DVT prophylaxis:? Subcu heparin Code status:? Full code Attending Dr. Bellamy Patient requires continued hospitalization For treatment of periorbital cellulitis with IV vancomycin and Zosyn as well as new asthma exacerbation necessitating scheduled albuterol and IV steroids Quality Stroke Does the patient have a stroke diagnosis?: No VTE Prior VTE?: No VTE Risk Level:: Medical - moderate - high VTE Device Contraindication: Treatment Not Indicated VTE Drug Contraindication: N/A - Med Ordered
[2022-01-05] MEDS: Albuterol Sulfate (0.083%) 2.5 MG/3 ML VIAL.NEB INHALE ×3 (11:14→19:02)
[2022-01-05] MEDS: methADONE HCl 20 MG/2 ML ORAL.CONC 10 MG PO (15:45)
--- NOTE | 2022-01-05 16:28 | P.PNADD_ITS ---
Subjective Subjective Date of Service: 01/05/22 Reason For Visit: preorbital cellulitis Interim History: Patient seen in follow up X2. Still reporting withdrawal sx. Body aches, chills, rhinorrhea--but improving with methadone Discussed current use and he reports 2 bundles QD along with smoking crack cocaine QD. Started using heroin when he was 45yo, has been smoking crack since 1989 Recently released from incarceration (December 21), does not have a stable place to live. requesting to continue increasing methadone and resources on CSS or fdc Review of Systems Constitutional: Reports as per HPI Mental Status Exam Mental Status Exam Patient Appearance: Appropriate Patient Behavior: Appropriate Affect Description: Calm Thought Process: Goal Oriented Diagnostics Vital Signs (24Hr): Vital Signs - 24 hr 01/04/22 23:47 01/05/22 03:22 01/05/22 07:05 Temperature 98.4 F 97.1 F 97.8 F Pulse Rate 70 54 66 Respiratory Rate 18 14 18 Blood Pressure 152/82 H 119/76 142/74 H Pulse Oximetry 95 93 95 01/05/22 11:15 01/05/22 11:58 01/05/22 15:05 Temperature 98.2 F Pulse Rate 89 72 82 Respiratory Rate 18 18 18 Blood Pressure 131/68 Pulse Oximetry 91 L 01/05/22 15:17 Temperature 98.4 F Pulse Rate 93 Respiratory Rate 17 Blood Pressure 109/62 Pulse Oximetry 95 BMI result Body Mass Index 24.5 Labs Results: 01/04/22 05:55 01/05/22 06:11 Labs: Laboratory Results - last 48 hr 01/03/22 01/03/22 01/03/22 16:48 17:12 19:59 WBC 10.4 RBC 3.84 L Hgb 11.1 L Hct 34.3 L MCV 89.3 MCH 28.9 MCHC 32.4 RDW 13.5 Plt Count 344 MPV 9.9 Immature Gran % (Auto) 0.3 Neut % (Auto) 75.7 H Lymph % (Auto) 10.7 L Wallace % (Auto) 5.8 Eos % (Auto) 6.6 H Baso % (Auto) 0.9 Lymph # (Auto) 1.1 L Wallace # (Auto) 0.6 Eos # (Auto) 0.7 H Baso # (Auto) 0.1 Abs Immat Gran (auto) 0.03 Absolute Neuts (auto) 7.9 Absolute Nucleated RBC 0.000 Nucleated RBC % (auto) 0.0 Sodium 140 Potassium 3.8 Chloride 105 Carbon Dioxide 27 Anion Gap 12 BUN 14 Creatinine 0.79 Estim Creat Clear Calc 98.3 Estimated GFR > 60 Random Glucose 115 Calcium 8.9 Total Bilirubin 0.5 AST 52 H ALT 31 Alkaline Phosphatase 79 Total Protein 6.2 L Albumin 3.8 Vancomycin Trough Urine Opiates Screen Urine Fentanyl Screen Ur Barbiturates Screen Ur Phencyclidine Scrn Ur Amphetamines Screen U Benzodiazepines Scrn Urine Cocaine Screen U Marijuana (THC) Screen COVID-19 (AYO) Negative COVID-19 Clin Com See Note Hepatitis C Ab (EIA) HIV 1&2 Ab/P24 Ag 4thGn 01/04/22 01/04/22 01/04/22 05:55 05:55 05:55 WBC 8.6 RBC 4.05 L Hgb 11.8 L Hct 36.6 L MCV 90.4 MCH 29.1 MCHC 32.2 RDW 13.7 Plt Count 341 MPV 10.2 Immature Gran % (Auto) 0.2 Neut % (Auto) 68.1 Lymph % (Auto) 15.5 L Wallace % (Auto) 6.2 Eos % (Auto) 9.0 H Baso % (Auto) 1.0 Lymph # (Auto) 1.3 Wallace # (Auto) 0.5 Eos # (Auto) 0.8 H Baso # (Auto) 0.1 Abs Immat Gran (auto) 0.02 Absolute Neuts (auto) 5.8 Absolute Nucleated RBC 0.000 Nucleated RBC % (auto) 0.0 Sodium 141 Potassium 3.6 Chloride 104 Carbon Dioxide 28 Anion Gap 13 BUN 8 L Creatinine 0.71 Estim Creat Clear Calc 109.4 Estimated GFR > 60 Random Glucose 107 Calcium 8.7 Total Bilirubin AST ALT Alkaline Phosphatase Total Protein Albumin Vancomycin Trough Urine Opiates Screen Urine Fentanyl Screen Ur Barbiturates Screen Ur Phencyclidine Scrn Ur Amphetamines Screen U Benzodiazepines Scrn Urine Cocaine Screen U Marijuana (THC) Screen COVID-19 (AYO) COVID-19 Clin Com Hepatitis C Ab (EIA) Nonreactive HIV 1&2 Ab/P24 Ag 4thGn Nonreactive 01/04/22 01/05/22 01/05/22 13:00 06:11 06:11 WBC RBC Hgb Hct MCV MCH MCHC RDW Plt Count MPV Immature Gran % (Auto) Neut % (Auto) Lymph % (Auto) Wallace % (Auto) Eos % (Auto) Baso % (Auto) Lymph # (Auto) Wallace # (Auto) Eos # (Auto) Baso # (Auto) Abs Immat Gran (auto) Absolute Neuts (auto) Absolute Nucleated RBC Nucleated RBC % (auto) Sodium Potassium Chloride Carbon Dioxide Anion Gap BUN Creatinine 0.67 Estim Creat Clear Calc 116.0 Estimated GFR > 60 Random Glucose Calcium Total Bilirubin AST ALT Alkaline Phosphatase Total Protein Albumin Vancomycin Trough 8.9 L Urine Opiates Screen POSITIVE H Urine Fentanyl Screen POSITIVE H Ur Barbiturates Screen Not Detected Ur Phencyclidine Scrn Not Detected Ur Amphetamines Screen Not Detected U Benzodiazepines Scrn Not Detected Urine Cocaine Screen POSITIVE H U Marijuana (THC) Screen Not Detected COVID-19 (AYO) COVID-19 Clin Com Hepatitis C Ab (EIA) HIV 1&2 Ab/P24 Ag 4thGn Imaging Radiology Impressions: ITS Impressions Chest X-Ray 01/03/22 16:39 IMPRESSION: Unremarkable chest exam. Orbit CT 01/03/22 18:25 IMPRESSION: Left preorbital soft tissue swelling and enhancement consistent with cellulitis. No organized fluid collection/abscess formation. The retro-orbital fat is unremarkable without evidence of involvement. Chest X-Ray 01/05/22 09:43 IMPRESSION: Left basilar infrahilar atelectasis and/or infiltrate represents interval worsening from the previous study. Medications Medications Current Medications Acetaminophen (Acetaminophen 325 Mg Tablet) 650 mg PO Q6H PRN PRN Reason: Pain, Mild (Pain Scale 1-3) Albuterol Sulfate (Albuterol Sulfate (0.083%) 2.5 Mg/3 Ml Vial.Neb) 2.5 mg INHALE RQ4H WHILE AWAKE [facility] Last Admin: 01/05/22 15:04 Dose: 2.5 mg Documented by: Clonidine HCl (Clonidine Hcl 0.1 Mg Tablet) 0.1 mg PO BID PRN; Protocol PRN Reason: anxiety/restlessness Last Admin: 01/04/22 23:34 Dose: 0.1 mg Documented by: Heparin Sodium (Porcine) (Heparin Sodium,Porcine 5,000 Unit/Ml Vial) 5,000 unit SUBCUT Q8H HI Last Admin: 01/05/22 15:44 Dose: 5,000 unit Documented by: Hydromorphone HCl (Hydromorphone Hcl 1 Mg/Ml Syringe) 0.5 mg IVPUSH Q4H PRN; Protocol PRN Reason: Pain, Severe (Pain Scale 7-10) Last Admin: 01/04/22 23:31 Dose: 0.5 mg Documented by: Piperacillin Sod/Tazobactam (Sod 3.375 gm/ Sodium Chloride) 50 mls @ 100 mls/hr IV Q6H [facility] Last Infusion: 01/05/22 15:31 Dose: Infused Documented by: Vancomycin HCl 1,250 mg/ (Sodium Chloride) 250 mls @ 166.667 mls/hr IV Q12H [facility] Last Infusion: 01/05/22 10:58 Dose: Infused Documented by: Melatonin (Melatonin 3 Mg Tablet) 6 mg PO BEDTIME PRN PRN Reason: Insomnia Methadone HCl (Methadone Hcl 20 Mg/2 Ml Oral.Conc) 45 mg PO DAILY [facility] Methylprednisolone Sodium Succinate (Methylprednisolone Sod Succ 40 Mg/Ml Vial) 40 mg IVPUSH Q8H [facility] Last Admin: 01/05/22 15:45 Dose: 40 mg Documented by: Pharmacy Consult (Consult Rx Perform Med Rec) 1 each MISCELLANE ONCE PRN PRN Reason: Consult order Pharmacy Consult (Consult Rx Vancomycin Dosing) 1 each MISCELLANE DAILY PRN PRN Reason: Consult order Senna (Sennosides 8.6 Mg Tablet) 17.2 mg PO BEDTIME PRN PRN Reason: Constipation Sodium Chloride (0.9 % Sodium Chloride Flush 3 Ml Syringe) 3 ml IVFLUSH QSHIFT [facility] Last Admin: 01/05/22 15:45 Dose: 3 ml Documented by: Allergies Allergies Allergy/AdvReac Type Severity Reaction Status Date / Time No Known Allergies Allergy Unverified 05/22/20 16:48 [No Known Allergies*] Assessment & Plan Assessment & Plan (1) Opiate withdrawal: Status: Acute Code(s): F11.23 - Opioid dependence with withdrawal Assessment and Plan: * additional 10mgh methadone today * tomorrow (01/06) methadone 45mg * continue to follow (2) Opioid use disorder: Status: Acute Code(s): F11.90 - Opioid use, unspecified, uncomplicated I spent __25____ minutes with the patient and/or on the patient floor today, greater than?50% of which was spent counseling/coordinating care.
[2022-01-06] VITALS (11 sets, daily range): BP systolic 101–119; BP diastolic 52–61; PULSE 73–94; RESP 16–18; TEMP 36.6–37.8; O2SAT 91–95
[2022-01-06] MEDS: 0.9 % Sodium Chloride Flush 3 ML SYRINGE IVFLUSH ×3 (00:51→14:21)
[2022-01-06] MEDS: methylPREDNISolone Sod Succ 40 MG/ML VIAL IVPUSH ×3 (00:51→17:20)
[2022-01-06] MEDS: Piperacillin Sodium/Tazobactam 3.375 GM in 0.9 % Sodium Chloride 50 ML IV ×4 (01:55→19:40)
[2022-01-06] MEDS: Heparin Sodium,Porcine 5,000 UNIT/ML VIAL 5000 UNIT SUBCUT ×3 (06:06→22:47)
[2022-01-06 06:58] LABS: Anion Gap 11 (12-20); Blood Urea Nitrogen 5 mg/dL (9-16); Calcium 9.3 mg/dL (8.4-10.2); Carbon Dioxide 27 mmol/L (22-29); Chloride 106 mmol/L (96-108); Creatinine Clr Calc Pharmacy 112.6; Estimated Glomerular Filt Rate > 60; Glucose Random 124 mg/dL (60-115); Potassium 3.9 mmol/L (3.3-5.1); Sodium 140 mmol/L (135-145)
[2022-01-06] MEDS: Albuterol Sulfate (0.083%) 2.5 MG/3 ML VIAL.NEB INHALE ×4 (07:12→20:10)
[2022-01-06] MEDS: methADONE HCl 20 MG/2 ML ORAL.CONC 45 MG PO (07:52)
[2022-01-06] MEDS: vancomycin HCL 1,250 MG in 0.9 % Sodium Chloride 250 ML 166.67 MG IV ×2 (07:53→21:07)
--- NOTE | 2022-01-06 08:29 | P.PNIM_ITS ---
Subjective Subjective Date of Service: 01/06/22 Interval History: cellulitis Review of Systems Seems improving, less swelling and no pain Shortness of breath similar to yesterday. Physical Exam Vital Signs: Vital Signs: Last Vital Signs Temp 100.0 F 01/06/22 07:38 Pulse 80 01/06/22 07:38 Resp 18 01/06/22 07:38 BP 119/60 01/06/22 07:38 Pulse Ox 92 01/06/22 07:38 Oxygen Flow Rate 3 01/03/22 16:00 BMI result Body Mass Index 24.5 Appearance: Alert.? Oriented X3.? sob ??Dry crusting to left eye, some yellow discharge, significantly improved swelling cvs: rrr, [id number] , no murmur res:diminshed air entry ,wheezing present. abd: no rebound or guarding ,nt, bs present. ext pulses present , no cyanosis . neuro: axo3 , nonfocal. Objective Data Active Medications Acetaminophen (Acetaminophen 325 Mg Tablet) 650 mg PO Q6H PRN PRN Reason: Pain, Mild (Pain Scale 1-3) Albuterol Sulfate (Albuterol Sulfate (0.083%) 2.5 Mg/3 Ml Vial.Neb) 2.5 mg INHALE RQ4H WHILE AWAKE [facility] Last Admin: 01/06/22 07:12 Dose: 2.5 mg Documented by: RACHAEL Clonidine HCl (Clonidine Hcl 0.1 Mg Tablet) 0.1 mg PO BID PRN; Protocol PRN Reason: anxiety/restlessness Last Admin: 01/04/22 23:34 Dose: 0.1 mg Documented by: HOLLEY Heparin Sodium (Porcine) (Heparin Sodium,Porcine 5,000 Unit/Ml Vial) 5,000 unit SUBCUT Q8H [facility] Last Admin: 01/06/22 06:06 Dose: 5,000 unit Documented by: JAZMINE Hydromorphone HCl (Hydromorphone Hcl 1 Mg/Ml Syringe) 0.5 mg IVPUSH Q4H PRN; Protocol PRN Reason: Pain, Severe (Pain Scale 7-10) Last Admin: 01/04/22 23:31 Dose: 0.5 mg Documented by: HOLLEY Piperacillin Sod/Tazobactam (Sod 3.375 gm/ Sodium Chloride) 50 mls @ 100 mls/hr IV Q6H [facility] Last Admin: 01/06/22 07:53 Dose: 100 mls/hr Documented by: DANNY Vancomycin HCl 1,250 mg/ (Sodium Chloride) 250 mls @ 166.667 mls/hr IV Q12H [facility] Last Infusion: 01/06/22 07:54 Dose: 0 mls/hr Documented by: DANNY Melatonin (Melatonin 3 Mg Tablet) 6 mg PO BEDTIME PRN PRN Reason: Insomnia Methadone HCl (Methadone Hcl 20 Mg/2 Ml Oral.Conc) 45 mg PO DAILY [facility] Last Admin: 01/06/22 07:52 Dose: 45 mg Documented by: DANNY Methylprednisolone Sodium Succinate (Methylprednisolone Sod Succ 40 Mg/Ml Vial) 40 mg IVPUSH Q8H [facility] Last Admin: 01/06/22 07:52 Dose: 40 mg Documented by: DANNY Pharmacy Consult (Consult Rx Perform Med Rec) 1 each MISCELLANE ONCE PRN PRN Reason: Consult order Pharmacy Consult (Consult Rx Vancomycin Dosing) 1 each MISCELLANE DAILY PRN PRN Reason: Consult order Senna (Sennosides 8.6 Mg Tablet) 17.2 mg PO BEDTIME PRN PRN Reason: Constipation Sodium Chloride (0.9 % Sodium Chloride Flush 3 Ml Syringe) 3 ml IVFLUSH QSHIFT [facility] Last Admin: 01/06/22 07:53 Dose: 3 ml Documented by: DANNY Labs CBC & Chem 7: 01/04/22 05:55 01/06/22 05:27 Labs: Laboratory Results - last 24 hr 01/06/22 05:27 Anion Gap 11 L Estim Creat Clear Calc 112.6 Estimated GFR > 60 Random Glucose 124 H Calcium 9.3 D Assessment and Plan (1) Preseptal cellulitis of left eye: Status: Acute (2) Asthma exacerbation: Status: Acute Plan 51-year-old male with a past medical history of anxiety, depression, opiate abuse presented to the hospital with a chief complaint of left eye pain for the past 4 days.? Noted to have following conditions Acute Asthma exacerbation exp wheezing scheduled duonebs and solumedrol supplemental oxygen as needed Left periorbital cellulitis/conjunctivitis decreased swelling dry crusting Continue IV vancomycin and Zosyn. Id following History of opiate abuse COWS protocol; clonidine p.r.n..? Addiction Medicine consult DVT prophylaxis:? Subcu heparin Code status:? Full code Attending ? Josesito Patient? requires continued hospitalization For treatment of periorbital cellulitis with IV vancomycin and Zosyn as well as new asthma exacerbation necessitating scheduled albuterol and IV steroids Quality Stroke Does the patient have a stroke diagnosis?: No VTE Prior VTE?: No VTE Risk Level:: Medical - moderate - high VTE Device Contraindication: Treatment Not Indicated VTE Drug Contraindication: N/A - Med Ordered
--- NOTE | 2022-01-06 13:55 | MHC.CM.PN ---
PER MULTIDISCIPLINARY ROUNDS PT SLOWLY I,PROVING, ANTIC 1-2 DAYS BEFORE D/C, CM WILL CONT TO FOLLOW, OFFICE EXECUTIVE/CLINICAL ACCOUNT MANAGER FOLLOWING.
--- NOTE | 2022-01-06 16:54 | P.PNADD_ITS ---
Subjective Subjective Date of Service: 01/06/22 Reason For Visit: preorbital cellulitis Interim History: Patient reports feeling better. Would like to stay at 45mg methadone for now. Appearing more comfortable. Denies withdrawal sx. Discussed plan following discharge. Planning to stay with either his cousin or his sister. Still planning to continue treatment with [facility]. Review of Systems Constitutional: Reports as per HPI Mental Status Exam Mental Status Exam Patient Appearance: Appropriate Patient Behavior: Appropriate Affect Description: Calm Patient Cognition Impaired: No Thought Content: positive for Goal Oriented Judgement: Good Diagnostics Vital Signs (24Hr): Vital Signs - 24 hr 01/05/22 19:02 01/05/22 19:28 01/05/22 23:31 Temperature 98.8 F 98.6 F Pulse Rate 83 86 72 Respiratory Rate 17 18 18 Blood Pressure 104/56 L 109/58 L Pulse Oximetry 95 93 01/06/22 03:31 01/06/22 07:13 01/06/22 07:38 Temperature 98.8 F 100.0 F Pulse Rate 73 91 80 Respiratory Rate 18 18 18 Blood Pressure 105/59 L 119/60 Pulse Oximetry 93 92 01/06/22 11:04 01/06/22 11:55 01/06/22 14:45 Temperature 98.2 F Pulse Rate 91 84 94 Respiratory Rate 18 18 18 Blood Pressure 118/60 Pulse Oximetry 93 01/06/22 15:50 Temperature 97.9 F Pulse Rate 88 Respiratory Rate 18 Blood Pressure 116/52 L Pulse Oximetry 95 BMI result Body Mass Index 24.5 Labs Results: 01/04/22 05:55 01/06/22 05:27 Labs: Laboratory Results - last 48 hr 01/04/22 01/05/22 01/05/22 05:55 06:11 06:11 Sodium Potassium Chloride Carbon Dioxide Anion Gap BUN Creatinine 0.67 Estim Creat Clear Calc 116.0 Estimated GFR > 60 Random Glucose Calcium Vancomycin Trough 8.9 L Hepatitis C Ab (EIA) Nonreactive HIV 1&2 Ab/P24 Ag 4thGn Nonreactive 01/06/22 05:27 Sodium 140 Potassium 3.9 Chloride 106 Carbon Dioxide 27 Anion Gap 11 L BUN 5 L Creatinine 0.69 Estim Creat Clear Calc 112.6 Estimated GFR > 60 Random Glucose 124 H Calcium 9.3 D Vancomycin Trough Hepatitis C Ab (EIA) HIV 1&2 Ab/P24 Ag 4thGn Imaging Radiology Impressions: ITS Impressions Chest X-Ray 01/03/22 16:39 IMPRESSION: Unremarkable chest exam. Orbit CT 01/03/22 18:25 IMPRESSION: Left preorbital soft tissue swelling and enhancement consistent with cellulitis. No organized fluid collection/abscess formation. The retro-orbital fat is unremarkable without evidence of involvement. Chest X-Ray 01/05/22 09:43 IMPRESSION: Left basilar infrahilar atelectasis and/or infiltrate represents interval worsening from the previous study. Medications Medications Current Medications Acetaminophen (Acetaminophen 325 Mg Tablet) 650 mg PO Q6H PRN PRN Reason: Pain, Mild (Pain Scale 1-3) Albuterol Sulfate (Albuterol Sulfate (0.083%) 2.5 Mg/3 Ml Vial.Neb) 2.5 mg INHALE RQ4H WHILE AWAKE [facility] Last Admin: 01/06/22 14:44 Dose: 2.5 mg Documented by: Clonidine HCl (Clonidine Hcl 0.1 Mg Tablet) 0.1 mg PO BID PRN; Protocol PRN Reason: anxiety/restlessness Last Admin: 01/04/22 23:34 Dose: 0.1 mg Documented by: Heparin Sodium (Porcine) (Heparin Sodium,Porcine 5,000 Unit/Ml Vial) 5,000 unit SUBCUT Q8H [facility] Last Admin: 01/06/22 14:20 Dose: 5,000 unit Documented by: Hydromorphone HCl (Hydromorphone Hcl 1 Mg/Ml Syringe) 0.5 mg IVPUSH Q4H PRN; Protocol PRN Reason: Pain, Severe (Pain Scale 7-10) Last Admin: 01/04/22 23:31 Dose: 0.5 mg Documented by: Piperacillin Sod/Tazobactam (Sod 3.375 gm/ Sodium Chloride) 50 mls @ 100 mls/hr IV Q6H [facility] Last Infusion: 01/06/22 14:53 Dose: Infused Documented by: Vancomycin HCl 1,250 mg/ (Sodium Chloride) 250 mls @ 166.667 mls/hr IV Q12H [facility] Last Infusion: 01/06/22 10:01 Dose: Infused Documented by: Melatonin (Melatonin 3 Mg Tablet) 6 mg PO BEDTIME PRN PRN Reason: Insomnia Methadone HCl (Methadone Hcl 20 Mg/2 Ml Oral.Conc) 45 mg PO DAILY [facility] Last Admin: 01/06/22 07:52 Dose: 45 mg Documented by: Methylprednisolone Sodium Succinate (Methylprednisolone Sod Succ 40 Mg/Ml Vial) 40 mg IVPUSH Q8H [facility] Last Admin: 01/06/22 07:52 Dose: 40 mg Documented by: Pharmacy Consult (Consult Rx Perform Med Rec) 1 each MISCELLANE ONCE PRN PRN Reason: Consult order Pharmacy Consult (Consult Rx Vancomycin Dosing) 1 each MISCELLANE DAILY PRN PRN Reason: Consult order Senna (Sennosides 8.6 Mg Tablet) 17.2 mg PO BEDTIME PRN PRN Reason: Constipation Sodium Chloride (0.9 % Sodium Chloride Flush 3 Ml Syringe) 3 ml IVFLUSH QSHIFT [facility] Last Admin: 01/06/22 14:21 Dose: 3 ml Documented by: Allergies Allergies Allergy/AdvReac Type Severity Reaction Status Date / Time No Known Allergies Allergy Unverified 05/22/20 16:48 [No Known Allergies*] Assessment & Plan Assessment & Plan (1) Opioid use disorder: Status: Acute Code(s): F11.90 - Opioid use, unspecified, uncomplicated Assessment and Plan: * continue methadone at 45mg * will continue to follow (2) Opiate withdrawal: Status: Acute Code(s): F11.23 - Opioid dependence with withdrawal I spent ____15__ minutes with the patient and/or on the patient floor today, greater than?50% of which was spent counseling/coordinating care.
[2022-01-06] MEDS: HYDROmorphone HCl 1 MG/ML SYRINGE 0.5 MG IVPUSH (17:19)
[2022-01-06 18:29] LABS: Vancomycin Trough 10.3 mcg/mL (10.0-20.0)
--- NOTE | 2022-01-06 18:54 | HE.PHANOTE ---
Vanco Dosing Based off trough today of 10.3 dose continued at [id number]. Next trough on 01/07 @ 1800
[2022-01-07 00:52] VITALS: RESP 18
[2022-01-07] MEDS: HYDROmorphone HCl 1 MG/ML SYRINGE 0.5 MG IVPUSH (00:52)
[2022-01-07] MEDS: methylPREDNISolone Sod Succ 40 MG/ML VIAL IVPUSH ×2 (00:52→07:29)
[2022-01-07] MEDS: 0.9 % Sodium Chloride Flush 3 ML SYRINGE IVFLUSH ×2 (00:54→07:29)
[2022-01-07] MEDS: Piperacillin Sodium/Tazobactam 3.375 GM in 0.9 % Sodium Chloride 50 ML IV ×2 (01:01→07:29)
[2022-01-07 03:23] VITALS: BP 125/70; PULSE 77; RESP 15; TEMP 37.1; O2SAT 95
[2022-01-07 06:03] LABS: Anion Gap 12 (12-20); Blood Urea Nitrogen 7 mg/dL (9-16); Carbon Dioxide 26 mmol/L (22-29); Chloride 106 mmol/L (96-108); Creatinine Clr Calc Pharmacy 103.6; Estimated Glomerular Filt Rate > 60; Glucose Random 178 mg/dL (60-115); Potassium 4.4 mmol/L (3.3-5.1); Sodium 140 mmol/L (135-145)
[2022-01-07] MEDS: Heparin Sodium,Porcine 5,000 UNIT/ML VIAL 5000 UNIT SUBCUT (06:26)
[2022-01-07] MEDS: methADONE HCl 20 MG/2 ML ORAL.CONC 45 MG PO (07:29)
[2022-01-07 07:30] VITALS: PULSE 77; RESP 20; O2SAT 95
[2022-01-07] MEDS: Albuterol Sulfate (0.083%) 2.5 MG/3 ML VIAL.NEB INHALE ×2 (07:30→12:21)
[2022-01-07 08:00] VITALS: BP 131/65; PULSE 69; RESP 17; TEMP 37; O2SAT 93
[2022-01-07] MEDS: vancomycin HCL 1,250 MG in 0.9 % Sodium Chloride 250 ML 166.67 MG IV (08:03)
[2022-01-07 09:18] LABS: Adenovirus PCR Not Detected (Not Detect.); Bordetella parapertussis PCR Not Detected (Not Detect.); Bordetella pertussis PCR Not Detected (Not Detect.); Chlamydia pneumoniae PCR Not Detected (Not Detect.); Coronavirus 229E PCR Not Detected (Not Detect.); Coronavirus HKU1 PCR Not Detected (Not Detect.); Coronavirus NL63 PCR Not Detected (Not Detect.); Coronavirus OC43 PCR Not Detected (Not Detect.); Human metapneumovirus PCR Not Detected (Not Detect.); Influenza A PCR Not Detected (Not Detect.); Influenza B PCR Not Detected (Not Detect.); Mycoplasma pneumoniae PCR Not Detected (Not Detect.); Parainfluenza 1 PCR Not Detected (Not Detect.); Parainfluenza 2 PCR Not Detected (Not Detect.); Parainfluenza 3 PCR Not Detected (Not Detect.); Parainfluenza 4 PCR Not Detected (Not Detect.); RSV PCR Not Detected (Not Detect.); Rhino/Enterovirus PCR Not Detected (Not Detect.); SARS-CoV-2 PCR Not Detected (Not Detect.)
[2022-01-07 11:19] VITALS: BP 132/65; PULSE 83; RESP 17; TEMP 36.2; O2SAT 93
--- NOTE | 2022-01-07 12:04 | MHC.CM.PN ---
nurse bilingual case manager ntoe electronic medical record revieqes along with case discussed with staff nurse and tiger texted to recover nurse edmundo that patient would be dischagred today patient met with asdiction physician and will be going to outpatient methadone clinic to be set uo by addition md and recovery nurse . patient is aware and accepting discharge plqn follow up with recomendations by the mary nurse for outpatient methadone clinic d.c on oral abx no services needed , transportation [facility] patient instructed to call for post hospitla discharge follow up
--- NOTE | 2022-01-07 12:12 | PM.DS ---
DS: Providers Provider Date of Service: 01/07/22 Date of admission: 01/03/22 22:54 Primary care physician: [facility] Consults: 01/03/22 22:53 Consult to Infectious Diseases Routine Consulting Provider: Yudy Narvaez Reason for consultation: Preorbital cellulitis 01/03/22 23:02 Addiction Medicine Routine Consulting Provider: Neela Oneil Reason for consultation: opiat abuse DS: Diagnosis Discharge Diagnosis (1) Opioid use disorder: Status: Acute (2) Opiate withdrawal: Status: Acute DS: Summary Hospital Course Hospital Course: 51-year-old male with a past medical history of anxiety, depression, opiate abuse presented to the hospital with a chief complaint of left eye pain for the past 4 days.? Hospital course: Patient came to the hospital because of Left periorbital cellulitis-treated with IV antibiotics seems to be improved significantly, going home with p.o. antibiotics, In addition patient got treatment for asthma exacerbation-going home with albuterol, steroids. Opioid use brenner follow-up outpatient with [facility]. Patient is to follow-up with PCP outpatient in 1 week . Time Spent with Patient Time attestation: Total time spent providing and/or coordinating discharge services: Discharge coordination time: Greater than 30 minutes Quality: Safe Use of Opioids Does Pt have an Active Cancer Diagnosis on the Problem List?: No Quality: Stroke Does the patient have a stroke diagnosis?: No Physical Exam Vital Signs: Vital Signs: Last Vital Signs Temp 97.2 F 01/07/22 11:19 Pulse 83 01/07/22 11:19 Resp 17 01/07/22 11:19 BP 132/65 01/07/22 11:19 Pulse Ox 93 01/07/22 11:19 Oxygen Flow Rate 3 01/03/22 16:00 BMI result Body Mass Index 24.5 ?Appearance: Alert.? Oriented X3.? ??minimum dry crusting to left eye, no discharge, swelling resolved. no conjuctival erythema cvs: rrr, [id number] , no murmur res:diminshed air entry ,no rhonchii or wheezing. abd: no rebound or guarding ,nt, bs present. ext pulses present , no cyanosis . neuro: axo3 , nonfocal. DS: Data Data Completed and Pending Labs on day of discharge: Laboratory Results - last 24 hr 01/06/22 01/07/22 01/07/22 17:59 05:30 05:50 Sodium 140 Potassium 4.4 Chloride 106 Carbon Dioxide 26 Anion Gap 12 BUN 7 L Creatinine 0.75 Estim Creat Clear Calc 103.6 Estimated GFR > 60 Random Glucose 178 H D Calcium 9.0 Vancomycin Trough 10.3 Respiratory Panel [place] See Note Adenovirus (Rapid PCR) Not Detected B.pert (TEM-PCR) Not Detected B.parapertussis DNA PCR Not Detected C. pneumoniae DNA (PCR) Not Detected Coronavirus OC43 (PCR) Not Detected Coronavirus HKU1 (PCR) Not Detected Coronavirus 229E (PCR) Not Detected Coronavirus NL63 (PCR) Not Detected Human Metapneumovir PCR Not Detected Influenza A (RT-PCR) Not Detected Influenza B (RT-PCR) Not Detected M. pneumoniae (PCR) Not Detected Parainfluenza 1 (PCR) Not Detected Parainfluenza 2 (PCR) Not Detected Parainfluenza 3 (PCR) Not Detected Parainfluenza 4 (PCR) Not Detected RSV (PCR) Not Detected Entero/Rhino (PCR) Not Detected SARS-CoV-2 RNA (RT-PCR) Not Detected Discharge Plan Discharge Patient Disposition: Home, Self-Care Discharge Diagnosis: Left periorbital cellulitis/conjunctivitis Referrals: [facility] [Primary Care Provider] - 1 Week Neela Oneil CNP [Nurse Practitioner] - 1 Week (follow up in [facility]) Discharge Medications: New amoxicillin-pot clavulanate 875-125 mg tablet 1 tab PO BID Qty: 14 0RF doxycycline monohydrate 100 mg capsule 100 mg PO BID Qty: 14 0RF albuterol sulfate 90 mcg/actuation HFA aerosol inhaler 1 inh inhalation QID PRN (Reason: bronchospasm) Qty: 8.5 0RF AirDuo Digihaler 113 mcg-14 mcg/actuation aero powdr breath act w/sensor 1 inh inhalation BID Qty: 1 0RF prednisone 20 mg tablet 40 mg PO DAILY Qty: 6 0RF Discharge Orders: Discharge Order (Routine); Ordered 01/07/22 Ordered By: Malathi Hernandez Diet: advance to usual diet Activity on Discharge: As tolerated Stand Alone Forms: Patient Portal Discharge page Care Plan Goals: Patient came to the hospital because of Left periorbital cellulitis-treated with IV antibiotics seems to be improved significantly, going home with p.o. antibiotics, In addition patient got treatment for asthma exacerbation-going home with albuterol, steroids. Opioid use brenner follow-up outpatient with [facility]. Health Concerns: As above. Plan of Treatment: As above. Assessment: As above.
[2022-01-07 12:23] VITALS: PULSE 84; RESP 18; O2SAT 95
[2022-01-07] MEDS: Amoxicillin/Potassium Clav 875 MG TABLET PO (12:56)
--- NOTE | 2022-01-07 14:27 | MHC.RECOVRN ---
Met with pt prior to discharge, provided last dose letter. Pt all set to present to [facility] tomorrow.
== END 2022-01-07 13:17 | disposition home or self-care (01) | DRG 383 ==
LOC: HO.ED 16:35 → HO.EDOVER 22:59 → HO.IMC 01-04 03:13 → HO.S3 01-04 16:42
PROVIDERS: Internal Medicine; Nurse Practitioner Acute Care; Nurse Practitioner Psychiatric/Mental Health; Admitting Provider Hospitalist; Emergency Provider Emergency Medicine; Visit Provider Internal Medicine
DX: L03.213 Periorbital cellulitis (principal); J45.901 Unspecified asthma with (acute) exacerbation; F17.210 Nicotine dependence, cigarettes, uncomplicated; H10.9 Unspecified conjunctivitis; F11.23 Opioid dependence with withdrawal; Z71.6 Tobacco abuse counseling; Z20.822 Contact with and (suspected) exposure to COVID-19; Z59.02 Unsheltered homelessness; Z79.82 Long term (current) use of aspirin; Z79.51 Long term (current) use of inhaled steroids; Z79.899 Other long term (current) drug therapy
CPT/HCPCS: 36415; 70481; 71045; 80048; 80053; 80202; 80307; 82565; 85025; 86803; 87389; 87633; 87635; 94640; 96365; 96375; 99284; 99285; J1170; J2543; J2920; J3370; Q9967

== ENCOUNTER 2022-01-26 10:39 | Emergency (ER) | payer MEDICAID, SELFPAY ==
[2022-01-26 10:50] VITALS: BP 134/76; PULSE 70; RESP 14; TEMP 37.2; O2SAT 97; BMI 21.2
[2022-01-26 10:51] VITALS: BP 134/76; PULSE 70; RESP 18; TEMP -17.7; TEMP 0; O2SAT 97; BMI 21.9
--- NOTE | 2022-01-26 11:18 | ED_ITS ---
HPI - Alcohol General Chief Complaint: ETOH/Substance Use Stated Complaint: ETOH INTOXICATION,FOUND SLEEPING OUTSIDE PER EMS Time Seen by Provider: 01/26/22 11:16 Source: patient and EMS Mode of arrival: EMS Limitations: no limitations History of Present Illness HPI narrative: Patient comes to the emergency room via EMS. Patient was found in the street, has been drinking alcohol. I was informed by the patient's nurse that the patient is uncooperative, is not providing any information. His is standing in the hallway kicking the yip. When I went to see the patient, patient is lying down in his stretcher, playing possum. Related Data Previous Rx's Medication Instructions Recorded albuterol sulfate 90 mcg/actuation 1 inh INHALATION QID PRN #8.5 g 01/07/22 aerosol inhaler amoxicillin 875 mg-potassium 1 tab PO BID #14 tab 01/07/22 clavulanate 125 mg tablet doxycycline monohydrate 100 mg 100 mg PO BID #14 cap 01/07/22 capsule fluticasone 113mcg-salmeterol 1 inh INHALATION BID #1 ea 01/07/22 14mcg/actuation breath act,powder sensor ([employer]o Digihaler) prednisone 20 mg tablet 40 mg PO DAILY #6 tab 01/07/22 clonidine HCl 0.2 mg tablet 0.2 mg PO TID PRN #10 tab 01/26/22 ondansetron HCl 4 mg tablet 4 mg PO Q8H PRN #10 tab 01/26/22 Allergies Allergy/AdvReac Type Severity Reaction Status Date / Time No Known Allergies Allergy Unverified 05/22/20 16:48 [No Known Allergies*] [facility] Past Medical History Medical History (Updated 01/26/22 @ 21:48 by Siomara Marie MD) Anxiety Depression Opioid use disorder Social History Social History Household Members: None Housing: Homeless Do you presently have visiting nurse or other home services: No Patient Tobacco Use Status: Current everyday Tobacco user Tobacco use type: Cigarette Cigarettes Per Day: 6 Substance Use Type: Crack/Cocaine and Heroin Advance Directives: No Advance Directives Information Provided: No service: No Physical Exam ED Vital Signs: Vital Signs - 24 hr 01/26/22 10:50 01/26/22 10:51 Temperature 99.0 F 0 F L Pulse Rate 70 70 Respiratory Rate 14 18 Blood Pressure 134/76 134/76 Pulse Oximetry 97 97 BMI result Body Mass Index 21.9 Const Other: Appearance: playing possum, uncooperative Eyes: Pupils equal, round and reactive to light. ENT: Pharynx normal. Neck: Normal inspection. Neck supple. No lymph nodes noted. No crepitus CVS: Normal heart rate and rhythm. Pulses normal. Normal S1 and S2 Respiratory: No respiratory distress. Breath sounds normal. No Wheezing. No rales Abdomen: Soft , no distension Skin: Skin warm and dry. Normal skin color. Normal skin turgor. Extremities: No lower extremity edema. No Lacerations. No Rash Neuro: Cranial nerves 2-12 grossly intact, patient is uncooperative Psych: calm, playing possum Course Course Course Narrative: When patient's nurse tried talking to him, patient was up and walking, kicking the yip in the hallway. When I went to speak to the patient, he threw himself in the bed, no playing possum, uncooperative. Metabolized to freedom. Physician observation started at 11:22 The Care Team by [facility] tried speaking to the patient. Patient kept refusing to talk to them. Patient will be giving list of detox facilities and he can make his own phone calls. Discharge Plan Discharge Clinical Impression: Opiate withdrawal Patient Disposition: Home, Self-Care Instructions: Opioid Withdrawal (ED) Additional Instructions: Please follow-up with your primary care physician tomorrow. If you have any worsening or new symptoms, please return to the emergency room or call 911 Prescriptions: New clonidine HCl 0.2 mg tablet 0.2 mg PO TID PRN (Reason: alcohol withdrawal) Qty: 10 0RF Rx Instructions: PRN withdrawal symptoms ondansetron HCl 4 mg tablet 4 mg PO Q8H PRN (Reason: nausea and vomiting) Qty: 10 0RF No Action amoxicillin-pot clavulanate 875-125 mg tablet 1 tab PO BID Qty: 14 0RF doxycycline monohydrate 100 mg capsule 100 mg PO BID Qty: 14 0RF albuterol sulfate 90 mcg/actuation HFA aerosol inhaler 1 inh inhalation QID PRN (Reason: bronchospasm) Qty: 8.5 0RF AirDuo Digihaler 113 mcg-14 mcg/actuation aero powdr breath act w/sensor 1 inh inhalation BID Qty: 1 0RF prednisone 20 mg tablet 40 mg PO DAILY Qty: 6 0RF
--- NOTE | 2022-01-26 13:51 | PC.NURSE ---
PT KICKING THE LR STATING HE IS DETOXING FROM HEROIN. PROVIDER MADE AWARE
--- NOTE | 2022-01-26 15:37 | PC.NURSE ---
pt refuses vitals, pt states he will kick PCT/RN if they attempt vitals.
--- NOTE | 2022-01-26 15:45 | MHC.CARE ---
Late entry: CARE team attempted to meet with pt to discuss substance use and interest in detox. ED nurse updated this advertising writer that pt had been aggressive and belligerent, kicking the wall and refusing vitals and labs. When this advertising writer attempted to meet with pt he did not respond to verbal prompting, shaking the stretcher, or physical touch (on his ankles). His eyes were closed tightly and his lips were pursed, appearing to be intentionally ignoring this advertising writer's attempts to communicate, as the nurse stated that they had tried to obtain vitals from him a minute or two before this encounter.
--- NOTE | 2022-01-26 15:47 | PC.NURSE ---
Patient refusing to answer questions and have vital signs taken from mixing technician and from this RN, Care team consulted for patient about detox. Patient refused to talk to Care team.
--- NOTE | 2022-01-26 17:16 | PC.NURSE ---
PT STILL APPEARS TO BE AGITATED WHEN WOKEN UP. KICKING HIS FEET AROUND CONSISTENT WITHDRAW SXS. SPOKE WITH CARE TEAM AND PATIENT REFUSED TO ENGAGE IN A ASSESSMENT WITH THEM. DR PERSAUD WAS AT THE BEDSIDE TO REASSESS THE PT AND MD IS UNDER THE IMPRESSION THAT THEY ARE SEEKING DETOX FOR HIM. ANTICIPATE CALCULUS TUTOR ASSISTANCE WHEN THEY ARRIVE.
--- NOTE | 2022-01-26 20:43 | PC.NURSE ---
Patient continues to refuse care from this RN. Will not answer questions, respond or allow vital signs to be taken
== END 2022-01-26 22:30 | disposition home or self-care (01) ==
PROVIDERS: Emergency Provider Emergency Medicine
DX: F11.13 Opioid abuse with withdrawal (principal); F17.200 Nicotine dependence, unspecified, uncomplicated
CPT/HCPCS: 99283; 99284

== ENCOUNTER → 2023-12-21 07:00 | Outpatient (BNV) | payer MEDICAID, SELFPAY | PROVIDERS: Admitting Provider Student in an Organized Health Care Education/Training Program; Emergency Provider Emergency Medicine; Visit Provider Internal Medicine | DX: I45.81 Long QT syndrome (principal); R60.0 Localized edema; R94.31 Abnormal electrocardiogram [ECG] [EKG] | CPT/HCPCS: 93010; 93306 ==

== ENCOUNTER 2023-12-21 07:08 | Inpatient (IN) | payer MEDICAID, SELFPAY ==
[2023-12-21] VITALS (7 sets, daily range): BP systolic 118–140; BP diastolic 73–96; PULSE 79–98; RESP 14–19; TEMP 36.2–37.1; O2SAT 92–96; BMI 39.9
--- NOTE | ~2023-12-21 | US_ITS ---
EXAMINATION: US VENOUS ULTRASOUND WITH DOPPLER LOWER EXTREMITY, BILATERAL CLINICAL INFORMATION: Left leg pain and swelling COMPARISON: None available. TECHNIQUE: Ultrasound of the deep veins is performed from the hip to the calf with compression sonography and color and pulse Doppler assessment. Spectral analysis with color-flow imaging is performed. FINDINGS: RIGHT: There is normal venous compression and respiratory variation and augmented flow. The visualized common femoral vein, superficial femoral vein, profunda femoral vein, popliteal vein, and the trifurcation region shows no evidence of deep venous thrombosis. There is no significant popliteal fossa cyst. LEFT: There is echogenic material within the veins of the left leg involving the left popliteal, gastrocnemius vein compatible with acute venous thrombosis. Incidental finding was made of the few mildly prominent lymph nodes in the inguinal regions bilaterally on the right measure up to 3.1 x 1 x 1.6 cm on the left measure 2.7 x 0.7 x 1.9 cm. If the patient's symptoms persist, followup ultrasound in 5 days 7 days might be of value to exclude proximal propagation from a non-visualized calf vein. US/US venous duplex LE IMPRESSION: * Positive DVT. * DVT demonstrated in the left popliteal and gastrocnemius veins. * Mildly prominent lymph nodes in the inguinal regions bilaterally measure up to 3.1 cm on the left and 3.1 cm on the right. Uncertain etiology. Please correlate with the clinical exam. * Technologist indicates that the result has been discussed with the provider by technologist at 11:45 AM. (Referring physician staff is being called, by physician staff assistance, to be alerted of the above critical findings and recommendations.) TC 12/21/2023 12:26 PM
--- NOTE | ~2023-12-21 | US_ITS ---
EXAMINATION: US EXTREMITY, NONVASCULAR CLINICAL INFORMATION: Left foot swelling COMPARISON: None available. TECHNIQUE: High-frequency linear ultrasound transducer was used to examine the anterior left foot in the area of clinical concern. FINDINGS: There is soft tissue edema present but no discrete fluid collection, abscess, hematoma or mass is seen. US/US extremity nonvascular IMPRESSION: Soft tissue edema without discrete fluid collection.
--- NOTE | ~2023-12-21 | XR_ITS ---
EXAMINATION: XR CHEST CLINICAL INFORMATION: Cough. COMPARISON: 01/05/2022. TECHNIQUE: Frontal view of the chest was obtained. FINDINGS: There is no gross pneumothorax. Lung volumes are low. Dextroscoliosis of the thoracolumbar spine with multilevel degenerative changes. No gross pleural effusion. Moderate patchy bibasilar opacities may represent atelectasis and/or pneumonia. XR/XR chest 1V IMPRESSION: Moderate patchy bibasilar opacities may represent atelectasis and/or pneumonia. This study was presented today December 21, 2023 for interpretation. Stat results provided at this time as requested by referring provider.
--- NOTE | ~2023-12-21 | CT_ITS ---
EXAMINATION: CT ANGIOGRAM OF THE CHEST WITH AND WITHOUT CONTRAST (CT PULMONARY ANGIOGRAM FOR PE) CLINICAL INFORMATION: DVT elevated troponin rule out PE COMPARISON: 07/21/2019 TECHNIQUE: Prior to contrast administration, noncontrast localization images were obtained. Subsequently, multidetector volumetric imaging was performed from the thoracic inlet to below the diaphragms following the administration of 65 mL Omnipaque 350 intravenous contrast. No contrast reaction reported Sagittal, coronal, and MIP oblique sagittal reformatted images were obtained on the CT workstation, uploaded to PACS, and reviewed. This CT examination was performed using dose optimization techniques as appropriate, variously including the following: *Automated exposure control *Adjustment of mA and/or kV according to patient size (this includes techniques or standardized protocols for targeted exams where dose is matched to indication/reason for exam; i.e. extremities or head) *Use of iterative reconstruction technique Total exam dose-length product 382 mGy-cm FINDINGS: QUALITY OF STUDY/CONTRAST BOLUS: Satisfactory. PULMONARY ARTERIES: The smaller segmental and subsegmental pulmonary emboli are seen to the right upper lobe, middle lobe and lower lobe. Cannot exclude a tiny subsegmental pulmonary arteries to the left lower lobe THORACIC AORTA: No aneurysm. LUNG: No focal consolidation, nodules or masses. PLEURA: No pleural effusion or pneumothorax. MEDIASTINUM: Normal heart size. No pericardial effusion. No hilar or mediastinal lymphadenopathy. No evidence of septal bowing or right heart strain. CORONARY ARTERY CALCIFICATION: None visualized on this study. CHEST WALL/AXILLA: No axillary or internal mammary lymphadenopathy. OSSEOUS STRUCTURES: No acute or suspicious osseous abnormality. UPPER ABDOMEN: Unremarkable. No reflux of contrast into the hepatic veins to suggest elevated right heart pressures. CT/CT angio chest PE protocol IMPRESSION: Small segmental and subsegmental pulmonary emboli to the right upper, middle and lower lobes. Cannot exclude a tiny subsegmental pulmonary embolus to the left lower lobe. No evidence of right heart strain. VTE: positive. This critical result was discussed with Tiffani Alexandra M.D. at 1512 on 12/21/2023 and it was ascertained that the content and urgency of the report was understood at the time of direct communication.
--- NOTE | ~2023-12-21 | XR_ITS ---
EXAMINATION: XR FOOT, LEFT CLINICAL INFORMATION: Left foot pain after trip and fall COMPARISON: None available. TECHNIQUE: AP, lateral, and oblique views of the left foot. FINDINGS: Mild distal dorsal soft tissue swelling. Mild hallux valgus with mild degenerative changes first MTP. No fracture or dislocation. Posterior calcaneal spurring. XR/XR foot LT min 3V IMPRESSION: Distal dorsal soft tissue swelling. No acute bony pathology.
--- NOTE | 2023-12-21 07:00 | CA_ITS ---
Transthoracic Echocardiogram Patient (Last, First, Middle): Edin Delgadillo, Gender: Male Date of : 1970 Age: 53 Procedure Date: 12/21/2023 Procedure Type: Transthoracic Echocardiogram Location: ER Height: 165.1 cm Weight: 108.86 kg BSA: 2.14 m2 Heart Rate: bpm BP: 128 / 79 mmHg Business Support Administrator: Referring MD: Tiffani Alexandra DO Symptoms: abnormal EKG, elevated troponin Study Quality: Adequate ECG Rhythm: Sinus Conclusions: - The left ventricular systolic function is low normal. The calculated ejection fraction is 52% by biplane method. - No obvious valvular pathology seen on this study. Findings Left Ventricle Normal left ventricular cavity size. There is mildly increased left ventricular wall thickness. The left ventricular systolic function is low normal. The calculated ejection fraction is 52% by biplane method. There is no evidence of regional wall motion abnormalities. Diastolic function is normal for age. Right Ventricle Mildly increased right ventricular cavity size. There is normal right ventricular systolic function. Atria Both atria are normal in size. Aortic Valve There is a normal trileaflet aortic valve. There is no aortic valve stenosis. There is no aortic valve regurgitation. Mitral Valve The mitral valve appears normal. There is no mitral valve regurgitation. There is no mitral valve stenosis. Pulmonic Valve The pulmonic valve is likely normal. Tricuspid Valve There is trace tricuspid valve regurgitation. There is no evidence of pulmonary hypertension. Great Vessels The asc aorta is normal in size. Venous The inferior vena cava is mildly dilated and collapses greater than 50% with inspiration. Pericardium/Pleural There is no evidence of pericardial effusion. Prior Study Comparison No prior study available for comparison. Recommendations, Care & Conclusions No obvious valvular pathology seen on this study. Measurements 2D Linear Measurements IVSd: 1.21 0.6-0.9/0.6-1.0 cm LVIDd: 4.71 3.9-5.3/4.2-5.9 cm LVIDd Index: 2.20 2.4-3.2/2.2-3.1 cm/m2 LVIDs: 2.95 2.0-3.6 cm LVPWd: 1.21 0.7-1.1 cm Ao Root: 3.30 2.1-3.5 cm LA Diam: 3.50 2.7-3.8/3.0-4.0 cm LAIDs Index: 1.64 1.5-2.3 cm/m2 LV Mass: 268.30 67-162/88-224 g LV Mass Index: 125.37 43-95/49-115 g/m2 LVOT Diam: 2.40 3.0+(-)1.3 cm 2D Systolic Function EF 4C: 51.90 >55% EF 2C: 47.50 >55% EF BiP: 52.30 >55% Mitral Valve MV Pk E: 0.68 MV PK A: 0.80 MV Decel Time: 164.00 E/A: 0.90 E'Lateral: 12.20 E'Medial: 8.16 E/E' Med: 8.30 E/E' Lat: 5.60 PHT: 48.00 MVA PHT: 4.58 Decel [place]: 4.16 Aortic Valve AoV Pk Justin: 1.22 AoV Mn Justin: 0.76 AoV VTI: 0.24 AoV Pk Grad: 6.00 Aov Mn Grad: 3.00 CLIVE Cont.VTI: 3.17 LVOT LVOT Pk Justin: 0.90 LVOT Mn Justin: 0.59 LVOT VTI: 0.17 LVOT Pk Grad: 3.00 LVOT Mn Grad: 2.00 LVOT Diam: 2.40 LVOT Area: 4.52 Diastolic Function MV Pk E: 0.68 MV Pk A: 0.80 E/A: 0.90 E'Medial: 8.16 E/E' Med: 8.30 E' Laterial: 12.20 E/E' Lat: 5.60 Right Ventricle TAPSE (mm): 27.00 TVS' Justin: 11.00 Tricuspid Valve TR Pk Justin: 2.26 TR Pk Grad: 20.00 RA Press: 3.00 RVSP: 23.00 Great Vessels Aorta Ao Root-2D: 3.30 2.0-3.7 cm Ao Asc: 3.00 2.1-3.4 cm Pulmonary Valve PV Pk Justin: 0.90 Peak PV Grad: 3.00 Updated in Other Vendor System with Status of Final Hai Galeana MD electronically signed on 12/21/2023 4:05:38 PM with status of Final
--- NOTE | 2023-12-21 07:51 | ECG_ITS ---
Test Reason : EDEMA Blood Pressure : / mmHG Vent. Rate : 082 BPM Atrial Rate : 082 BPM P-R Int : 130 ms QRS Dur : 096 ms QT Int : 402 ms P-R-T Axes : 060 042 -27 degrees QTc Int : 469 ms Normal sinus rhythm T wave abnormality, consider inferior ischemia T wave abnormality, consider anterior ischemia Prolonged QT Abnormal ECG When compared with ECG of 15-MAR-2020 06:09, T wave inversion now evident in Inferior leads T wave inversion now evident in Anterior leads Referred By: Generic ED Physician Electronically Signed By:CASSIE LITTLE
--- NOTE | 2023-12-21 08:04 | ED.SKABFB ---
HPI - Skin/Abscess/Foreign Bdy General Chief complaint: General Medical Stated complaint: ZANDER FOOT SWELLING X2 DAYS,R ARM SCABS PER EMS Time Seen by Provider: 12/21/23 07:56 Source: patient and old records reviewed Mode of arrival: EMS Limitations: other (poor historian) History of Present Illness HPI narrative: 53 yo male with PMH of opiate use disorder was on subutex last dose 12/04 last used heroin yesterday snorts it and smokes crack, asthma here with c/o not feeling well with fevers and L foot swelling and redness for 2 days. He notes he did fall and trip on that area but is vague about it. He does not inject in that area. He adamantly states he only snorts drugs. He notes he is wheezing and did not use his inhalers. He reports opiate withdrawal symptoms and is asking for medications and will you use my drug use against me? . He is very jumpy and hard to follow the history. MD complaint: rash and lesion Onset (ago): day(s) (2) Location: LLE and L foot Severity: moderate Quality: aching Pain Consistency: constant Relieving factors: rest Exacerbating factors: movement Context: none Associated symptoms: fever, chills and arthralgias Treatments prior to arrival: none Related Data Previous Rx's ?Medication ?Instructions ?Recorded albuterol sulfate 90 mcg/actuation 1 inh inhalation QID PRN 01/07/22 aerosol inhaler bronchospasm #8.5 grams amoxicillin 875 mg-potassium 1 tab PO BID #14 tabs 01/07/22 clavulanate 125 mg tablet doxycycline monohydrate 100 mg 100 mg PO BID #14 caps 01/07/22 capsule fluticasone 113mcg-salmeterol 1 inh inhalation BID asthma #1 ea 01/07/22 14mcg/actuation breath act,powder sensor (AirDuo Digihaler) prednisone 20 mg tablet 40 mg (2 x 20 mg) PO DAILY #6 tabs 01/07/22 clonidine HCl 0.2 mg tablet 0.2 mg PO TID PRN alcohol 01/26/22 withdrawal #10 tabs ondansetron HCl 4 mg tablet 4 mg PO Q8H PRN nausea and 01/26/22 vomiting #10 tabs Allergies Allergy/AdvReac Type Severity Reaction Status Date / Time No Known Allergies Allergy Verified 12/21/23 07:36 [No Known Allergies*] Review of Systems Review of Systems: Constitutional : pos Fever, pos Chills ENT/Mouth : No sore throat, No Rhinorrhea Eyes: No Eye Pain, No Swelling, No Redness Cardiovascular : No Chest Pain, No SOB Respiratory : No Cough, No Sputum Gastrointestinal : No Nausea, No Vomiting, No Diarrhea, No abdominal Pain Genitourinary : No Dysuria, No Hematuria Musculoskeletal : No joint pain, pos Myalgias, No Joint Swelling Skin : No Skin Lesions, positive skin rash Neuro : pos Weakness, No Numbness, No Headache Psych : pos Anxiety, No Depression Heme/Lymph: No Bruising, No Bleeding,No Lymphadenopathy Endocrine : No Polyuria, No Polydipsia All other systems reviewed and are negative [facility] Past Medical History Attestation statement: The following information was validated with the patient. Source: old records reviewed Medical History Opioid use disorder Anxiety Depression Social History Social History Household Members: None Housing: Homeless Do you presently have visiting nurse or other home services: No Patient Tobacco Use Status: Current everyday Tobacco user Tobacco use type: Cigarette Cigarettes Per Day: 6 Smoked in Last 30 Days: Yes Use of substances other than those prescribed or required for medical reasons: Yes Substance Use Type: Crack/Cocaine and Heroin Substance Use Frequency: Chronic Longstanding Last Used Substance: Just Prior to Admission Any prior treatment program specific to substance use: Yes Advance Directives: No Nutrition Risks: No Nutritional Risk service: No Physical Exam Vital Signs: Vital Signs: Last Vital Signs Temp 97.2 F 12/21/23 12:54 Pulse 84 12/21/23 12:54 Resp 14 12/21/23 12:54 BP 118/76 12/21/23 12:54 Pulse Ox 92 12/21/23 12:54 O2 Del Method Room Air 12/21/23 12:54 BMI result Body Mass Index 39.9 Appearance: Alert. Oriented X3. Mild acute distress. anxious hard to follow very restless Eyes: Pupils equal, round and reactive to light. ENT: Pharynx normal. Neck: Normal inspection. Neck supple. CVS: Normal heart rate and rhythm. Pulses normal. Respiratory: No respiratory distress. Breath sounds exp wheezes heard bilaterally Abdomen: Soft and nontender. Skin: Skin warm and dry. Normal skin color. L foot warm and red hot to touch no open wounds noted. On extremities has multiple scabbed pocked and picked areas no drainage or cellulitis noted on RUE, LUE, RLE Extremities: bilateral ankle trace pittting lower extremity edema. L foot is swollen red and hot to touch no fluctuance NV intaact Neuro: Oriented X 3. No motor deficit. No sensory deficit. Course Course Course Narrative: EKG has changes but he has no chest pain will send off troponin Dr. Galeana aware - order ECHO Reevaluation(s) Reevaluation #1: given DVT study will order CTA - poor contrast timing but I do not see a saddle Medications Administered Generic Name Dose Route Start Last Admin Trade Name Freq PRN Reason Stop Dose Admin Sodium Chloride 1,000 mls @ 50 mls/hr 12/21/23 10:30 12/21/23 12:36 Ns IVCONT 50 mls/hr .Q20H HI Administration Discontinued Medications Generic Name Dose Route Start Last Admin Trade Name Freq PRN Reason Stop Dose Admin Al Hydroxide/Mg Hydroxide 30 ml 12/21/23 09:27 12/21/23 10:01 Magnesium Hydrox/Alum Hydrox 30 Ml Oral.Susp PO 12/21/23 09:28 30 ml ONCE ONE Administration Albuterol/Ipratropium 3 ml 12/21/23 08:18 12/21/23 08:22 Albuterol/Iprat 2.5/0.5mg 3 Ml Ampul.Neb INHALE 12/21/23 08:19 3 ml ONCE ONE Administration Aspirin 325 mg 12/21/23 09:37 12/21/23 10:02 Aspirin Enteric Coated 325 Mg Tablet.Dr PO 12/21/23 09:38 325 mg ONCE ONE Administration Enoxaparin Sodium 105 mg 12/21/23 11:54 12/21/23 13:00 Enoxaparin Sodium 120 Mg/0.8 Ml Syringe 1 mg/kg (105 mg) 12/21/23 11:55 105 mg SUBCUT Administration ONCE ONE Ceftriaxone Sodium 2 gm/ 50 mls @ 100 mls/hr 12/21/23 08:00 12/21/23 09:13 Sodium Chloride IV 12/21/23 08:29 Infused ONCE ONE Infusion Vancomycin HCl 2,000 mg in 500 mls @ 250 mls/hr 12/21/23 08:00 12/21/23 11:26 Vancomycin/Ns IV 12/21/23 09:59 250 mls/hr ONCE ONE Administration Magnesium Sulfate 2 gm in 50 mls @ 25 mls/hr 12/21/23 08:28 12/21/23 11:00 Magnesium Sulfate/H2o IV 12/21/23 10:27 Infused ONCE ONE Infusion Potassium Chloride 10 meq in 100 mls @ 100 mls/hr 12/21/23 09:30 12/21/23 12:57 Potassium Chloride/H20 IV 12/21/23 11:29 100 mls/hr Q1H HI Administration Iohexol 100 ml 12/21/23 13:27 12/21/23 13:30 Iohexol 350 Mg/Ml 100 Ml Infus..Btl IV 12/21/23 13:28 85 ml ONCE ONE Administration Lidocaine HCl 15 ml 12/21/23 11:27 12/21/23 12:36 Lidocaine Hcl Viscous 2 % 15 Ml Solution MUCOUS MEM 12/21/23 11:28 15 ml ONCE ONE Administration Methadone HCl 40 mg 12/21/23 08:00 12/21/23 09:12 Methadone Hcl 20 Mg/2 Ml Oral.Conc PO 12/21/23 08:01 40 mg ONCE ONE Administration Morphine Sulfate 4 mg 12/21/23 09:43 12/21/23 10:07 Morphine Sulfate 4 Mg/Ml Cartridge IVPUSH 12/21/23 09:44 4 mg ONCE ONE Administration Protocol Ondansetron HCl 4 mg 12/21/23 09:56 12/21/23 10:01 Ondansetron Hcl 4 Mg/2 Ml Vial IVPUSH 12/21/23 09:57 4 mg ONCE ONE Administration Potassium Chloride 40 meq 12/21/23 09:27 12/21/23 10:04 Potassium Chloride Packet 20 Meq Packet PO 12/21/23 09:28 40 meq ONCE ONE Administration Medical Decision Making Medical Decision Making MDM Narrative: 53 yo male with PMH of asthma, opiate use disorder, here with c/o not feeling well with fevers, chills, leg swelling, foot pain and rash concerning for cellulitis he also feels he is in opiate withdrawal and has not had subutex since 12/04. At this time labs, cultures, CXR, bronch protocol, IV ceftriaxone and vanco given fevers and malaise suspect cellulitis but cannot rule out endocarditis though he adamantly denies IVDA. He does have EKG changes but no CP/SOB - will send off troponin - could be related to lyte abnormality Differential Diagnosis Differential Diagnoses: The differential diagnosis associated with the presentation includes cellulitis, withdrawal, endocarditis, asthma, EKG abnormality DVT Admission/Observation Consideration of admission/observation: Escalation of care including admission/observation considered plan to admit for cellulitis further management Consult Healthcare Provider Management of the patient was discussed with: Hospitalist (will admit) and Professor Of Physical Education (Kervin dc) cardiology addiction Lab Data MDM Lab Attestation statement: I reviewed the patient's lab results. 12/21/23 08:57 12/21/23 08:57 Labs: Lab Results 12/21/23 12/21/23 12/21/23 Range/Units 08:56 08:57 11:16 WBC 15.3 H (4.8-10.8) X10*3/uL RBC 4.68 (4.60-5.80) X10*6/uL Hgb 13.5 L (14.0-18.0) g/dl Hct 40.2 L (42.0-52.0) % MCV 85.9 (80.0-98.0) fL MCH 28.8 (27.0-33.0) pg MCHC 33.6 (31.0-36.0) g/dl RDW 14.6 (11.0-16.0) % Plt Count 267 (160-400) X10*3/uL MPV 10.1 (9.4-12.4) fL Immature Gran % (Auto) 1.1 H (0.0-0.4) % Neut % (Auto) 85.7 H (45-73) % Lymph % (Auto) 6.3 L (20-40) % Miller % (Auto) 5.7 (2-11) % Eos % (Auto) 0.8 (0-4) % Baso % (Auto) 0.4 (0-2) % Lymph # (Auto) 1.0 L (1.2-4.9) X10*3/uL Miller # (Auto) 0.9 (0.1-1.2) X10*3/uL Eos # (Auto) 0.1 (0.0-0.4) X10*3/uL Baso # (Auto) 0.1 (0.0-0.2) X10*3/uL Abs Immat Gran (auto) 0.17 H (0.00-0.03) X10*3/uL Absolute Neuts (auto) 13.1 H (2.0-8.3) x10*3/uL Absolute Nucleated RBC 0.000 (0.0-0.012) X10*3/uL Nucleated RBC % (auto) 0.0 (0.0-0.2) /100WBC PT (11.1-13.3) SEC INR (0.9-1.1) APTT (26.0-36.8) SEC Sodium 137 (135-145) mmol/L Potassium 2.9 L* (3.3-5.1) mmol/L Chloride 102 (96-108) mmol/L Carbon Dioxide 24 (22-29) mmol/L Anion Gap 14 (12-20) BUN 11 (9-16) mg/dL Creatinine 0.61 (0.5-1.4) mg/dL Estim Creat Clear Calc 163.0 Estimated GFR > 60 Random Glucose 136 H (60-115) mg/dL Lactic Acid 1.5 (0.5-2.0) mmol/L Calcium 9.1 (8.4-10.2) mg/dL Magnesium 1.9 (1.6-2.6) mg/dL Total Bilirubin 1.5 H (0.0-1.0) mg/dL Direct Bilirubin 0.9 H (0.0-0.5) mg/dL AST 36 (5-37) U/L ALT 78 H (0-40) U/L Alkaline Phosphatase 108 (39-117) U/L Total Creatine Kinase 70 (38-174) U/L Troponin I High Sens 105.7 H* 74.8 H (<3.5-35.0) ng/L B-Natriuretic Peptide 85 (<100) pg/mL Total Protein 7.0 (6.5-8.0) g/dL Albumin 3.5 (3.5-5.0) g/dL Influenza Type A (PCR) NEGATIVE (Negative) Influenza Type B (PCR) NEGATIVE (Negative) RSV RNA Qual (PCR) NEGATIVE (Negative) SARS-CoV-2 RNA (RT-PCR) NEGATIVE (Negative) 12/21/23 Range/Units 12:27 WBC (4.8-10.8) X10*3/uL RBC (4.60-5.80) X10*6/uL Hgb (14.0-18.0) g/dl Hct (42.0-52.0) % MCV (80.0-98.0) fL MCH (27.0-33.0) pg MCHC (31.0-36.0) g/dl RDW (11.0-16.0) % Plt Count (160-400) X10*3/uL MPV (9.4-12.4) fL Immature Gran % (Auto) (0.0-0.4) % Neut % (Auto) (45-73) % Lymph % (Auto) (20-40) % Miller % (Auto) (2-11) % Eos % (Auto) (0-4) % Baso % (Auto) (0-2) % Lymph # (Auto) (1.2-4.9) X10*3/uL Miller # (Auto) (0.1-1.2) X10*3/uL Eos # (Auto) (0.0-0.4) X10*3/uL Baso # (Auto) (0.0-0.2) X10*3/uL Abs Immat Gran (auto) (0.00-0.03) X10*3/uL Absolute Neuts (auto) (2.0-8.3) x10*3/uL Absolute Nucleated RBC (0.0-0.012) X10*3/uL Nucleated RBC % (auto) (0.0-0.2) /100WBC PT 17.4 H (11.1-13.3) SEC INR 1.4 H (0.9-1.1) APTT 31.6 (26.0-36.8) SEC Sodium (135-145) mmol/L Potassium (3.3-5.1) mmol/L Chloride (96-108) mmol/L Carbon Dioxide (22-29) mmol/L Anion Gap (12-20) BUN (9-16) mg/dL Creatinine (0.5-1.4) mg/dL Estim Creat Clear Calc Estimated GFR Random Glucose (60-115) mg/dL Lactic Acid (0.5-2.0) mmol/L Calcium (8.4-10.2) mg/dL Magnesium (1.6-2.6) mg/dL Total Bilirubin (0.0-1.0) mg/dL Direct Bilirubin (0.0-0.5) mg/dL AST (5-37) U/L ALT (0-40) U/L Alkaline Phosphatase (39-117) U/L Total Creatine Kinase (38-174) U/L Troponin I High Sens (<3.5-35.0) ng/L B-Natriuretic Peptide (<100) pg/mL Total Protein (6.5-8.0) g/dL Albumin (3.5-5.0) g/dL Influenza Type A (PCR) (Negative) Influenza Type B (PCR) (Negative) RSV RNA Qual (PCR) (Negative) SARS-CoV-2 RNA (RT-PCR) (Negative) Independent Interpretation I performed an independent interpretation of an: EKG, Plain X-Ray (no fracture), Ultrasound (+ DVT) and CT Scan (+ PE) Interpretation: Rate: 82 Rhythm: NSR Vincent: normal Normal P waves. Normal TIMMY. Normal QRS complex. ST T wave : no ISADORA, inverted t waves II, III, aVF, V4, V5, biphasic t waves in V2-V3, some doming to V3 qTC: 469 prior studies: changed from 2021 The study has been interpreted contemporaneously by me. . Radiology Impression Discussion of test interpretation with radiology: I discussed test interpretation with the radiologist and I have reviewed the radiologist's reading. External Record Review External record reviewed: Inpatient record Critical Care Time Critical Care Time Critical Care Time: Yes Total Critical Care Time: 75 Attestation: repeat labs, medical consults, IV potassium, IV morphine with improvement in pain, admission I attest to this time spent taking care of the patient Discharge Plan Discharge Clinical Impression: Malaise, Opiate withdrawal, Acute hypokalemia, Abnormal EKG, Elevated troponin Cellulitis Qualifiers: Site of cellulitis: extremity Site of cellulitis of extremity: lower extremity Laterality: left Qualified Code(s): L03.116 - Cellulitis of left lower limb DVT (deep venous thrombosis) Qualifiers: DVT location: lower extremity Affected thrombotic vein of extremity: popliteal Chronicity: acute Laterality: left Qualified Code(s): I82.432 - Acute embolism and thrombosis of left popliteal vein Pulmonary emboli Qualifiers: Pulmonary embolism type: unspecified Chronicity: acute Acute cor pulmonale presence: with acute cor pulmonale Qualified Code(s): I26.09 - Other pulmonary embolism with acute cor pulmonale Patient Disposition: Admitted As Inpatient
--- NOTE | 2023-12-21 08:08 | PC.NURSE ---
Pt to Xray.
[2023-12-21] MEDS: Albuterol/Iprat 2.5/0.5MG 3 ML AMPUL.NEB INHALE (08:22)
[2023-12-21 09:07] LABS: MANUAL DIFF FLAG NO
[2023-12-21] MEDS: methADONE HCl 20 MG/2 ML ORAL.CONC 40 MG PO (09:12)
[2023-12-21] MEDS: cefTRIAXone sodium 2 GM in 0.9 % Sodium Chloride 50 ML IV (09:13)
[2023-12-21 09:18] LABS: Lactic Acid 1.5 mmol/L (0.5-2.0)
[2023-12-21 09:21] LABS: Basophils Absolute Auto 0.1 X10*3/uL (0.0-0.2); Basophils Percent Auto 0.4 % (0-2); Eosinophils Absolute Auto 0.1 X10*3/uL (0.0-0.4); Eosinophils Percent Auto 0.8 % (0-4); Hematocrit 40.2 % (42.0-52.0); Hemoglobin 13.5 g/dl (14.0-18.0); Imm Gran Abs Auto 0.17 X10*3/uL (0.00-0.03); Imm Gran Pct Auto 1.1 % (0.0-0.4); Lymphocytes Percent Auto 6.3 % (20-40); Mean Corpuscular HGB Conc 33.6 g/dl (31.0-36.0); Mean Corpuscular Hemoglobin 28.8 pg (27.0-33.0); Mean Corpuscular Volume 85.9 fL (80.0-98.0); Mean Platelet Volume 10.1 fL (9.4-12.4); Monocytes Absolute Auto 0.9 X10*3/uL (0.1-1.2); Monocytes Percent Auto 5.7 % (2-11); Neutrophils Absolute Auto 13.1 x10*3/uL (2.0-8.3); Neutrophils Percent Auto 85.7 % (45-73); Platelet Count 267 X10*3/uL (160-400); Red Blood Count 4.68 X10*6/uL (4.60-5.80); Red Cell Distribution Width 14.6 % (11.0-16.0); White Blood Count 15.3 X10*3/uL (4.8-10.8)
[2023-12-21 09:27] LABS: Alanine Aminotransferase 78 U/L (0-40); Albumin Level 3.5 g/dL (3.5-5.0); Alkaline Phosphatase 108 U/L (39-117); Aspartate Amino Transferase 36 U/L (5-37); Bilirubin Direct 0.9 mg/dL (0.0-0.5); Bilirubin Total 1.5 mg/dL (0.0-1.0); Magnesium 1.9 mg/dL (1.6-2.6)
[2023-12-21 09:28] LABS: Anion Gap 14 (12-20); Blood Urea Nitrogen 11 mg/dL (9-16); Calcium 9.1 mg/dL (8.4-10.2); Carbon Dioxide 24 mmol/L (22-29); Chloride 102 mmol/L (96-108); Estimated Glomerular Filt Rate > 60; Glucose Random 136 mg/dL (60-115); Potassium 2.9 mmol/L (3.3-5.1); Sodium 137 mmol/L (135-145)
[2023-12-21] MEDS: Magnesium Sulfate/H2O 2 GM/50 ML PIGGYBACK IV (09:29)
[2023-12-21 09:30] LABS: B Type Natriuretic Peptide 85 pg/mL (<100)
[2023-12-21 09:36] LABS: Troponin-I High Sensitivity 105.7 ng/L (<3.5-35.0)
[2023-12-21 09:51] LABS: Influenza A PCR NEGATIVE (Negative); Influenza B PCR NEGATIVE (Negative); Resp Syncy Virus RNA Qual PCR NEGATIVE (Negative); SARS COV2 PCR INHOUSE NEGATIVE (Negative)
--- NOTE | 2023-12-21 09:52 | PC.NURSE ---
Pharmacy called, will make IV vanco dose.
[2023-12-21] MEDS: Magnesium Hydrox/Alum Hydrox 30 ML ORAL.SUSP PO (10:01)
[2023-12-21] MEDS: ondansetron HCL 4 MG/2 ML VIAL IVPUSH ×2 (10:01→19:45)
[2023-12-21] MEDS: Aspirin Enteric Coated 325 MG TABLET.DR PO (10:02)
[2023-12-21] MEDS: Potassium Chloride Packet 20 MEQ PACKET 40 MEQ PO (10:04)
[2023-12-21] MEDS: Potassium Chloride/H20 10 MEQ/100 ML PIGGYBACK 100 MEQ IV ×2 (10:07→12:57)
[2023-12-21] MEDS: Morphine Sulfate 4 MG/ML CARTRIDGE IVPUSH (10:07)
--- NOTE | 2023-12-21 10:57 | PC.NURSE ---
Jelanio delay due to lack of IV access and multiple IV infusions required.
[2023-12-21] MEDS: vancomycin/NS 2,000 MG/500 ML PLAST..BAG 250 MG IV (11:26)
--- NOTE | 2023-12-21 11:29 | PC.NURSE ---
US tech at the bedside at this time.
[2023-12-21 11:46] LABS: Troponin-I High Sensitivity 74.8 ng/L (<3.5-35.0)
--- NOTE | 2023-12-21 11:59 | P.HPHOSP_ITS ---
History of Present Illness Date of Service: 12/21/23 Attending physician on admission: Migel Mccoy Chief Complaint: Left foot redness and swelling Pt is a 53-year-old male with a PMH significant for?opiate use disorder on Suboxone, polysubstance use disorder, mild intermittent asthma, anxiety, and depression who presents to the ED with multiple complaints, including excoriations and scabbing on right arm, and left leg and foot swelling, redness, and pain. Pt states noticed left lower extremity pain and swelling 2-3 days ago. Foot has been painful and difficult to walk on. Says has been experiencing subjective fever, chills, and nausea but no vomiting. Chronic SOB for the past year, worse the past few days. Patient has a long history of polysubstance use disorder, says [place] heroin smokes crack, but adamantly denies IVDU. Reports sores on right arm began approximately 1 week ago. Started out as ?blisters? that patient began itching and eventually turned into larger scabbed areas. Also has smaller, similar sores on legs, feet, and chest. States has had 3-4 similar episodes in the past. Sores/scabs can appear anywhere on body, including face. Denies chest pain/pressure, palpiations. In the ED pt was tachycardic up to 91, vitals otherwise WNL, satting at 92% on RA. Labs were significant for leukocytosis 15.3, potassium 2.9, bilirubin 5, ALT 78, initial troponin 105.7 with repeat 74.8. Otherwise grossly unremarkable and WNL for patient. Tested negative for influenza, RSV, COVID. CXR showed moderate bi basilar patchy opacities which may represent atelectasis and/or pneumonia. X-ray of left foot found distal dorsal soft tissue swelling but no acute bony pathology. Venous duplex of left lower extremity found DVT demonstrated in the left popliteal and gastrocnemius veins. CTA showed small segmental and subsegmental PE to the right upper, middle, and lower lobes, can not exclude tiny subsegmental pulmonary embolus to left lower lobe. No evidence of right heart strain.. EKG demonstrated normal sinus rhythm but T-wave inversions in inferior and anterior leads, new from previous on 03/15/2020. Pt was treated with albuterol, methadone, magnesium, ondansetron, aspirin, potassium chloride IV and p.o., morphine, and ceftriaxone and vancomycin. Pt will be admitted to the hospital for treatment and further evaluation of left lower extremity DVT, pulmonary emboli, and left foot cellulitis. Review of Systems 2 Review of Systems: Right lower leg swelling and pain Right lower foot swelling, redness, and pain Chronic SOB, worse the past 2-3 days Right upper extremity pruritic excoriations Subjective fever and chills Nausea but no vomiting Denies chest pain/pressure, palpitations [facility] Medical History (Updated 12/21/23 @ 15:21 by SURENDRA Miller) Mild intermittent asthma Opioid use disorder Anxiety Depression Social History Household Members: None Housing: Homeless Do you presently have visiting nurse or other home services: No Patient Tobacco Use Status: Current everyday Tobacco user Tobacco use type: Cigarette Cigarettes Per Day: 6 Smoked in Last 30 Days: Yes Use of substances other than those prescribed or required for medical reasons: Yes Substance Use Type: Crack/Cocaine and Heroin Substance Use Frequency: Chronic Longstanding Last Used Substance: Just Prior to Admission Any prior treatment program specific to substance use: Yes Advance Directives: No Nutrition Risks: No Nutritional Risk service: No Meds Allergies Allergy/AdvReac Type Severity Reaction Status Date / Time No Known Allergies Allergy Verified 12/21/23 07:36 [No Known Allergies*] Active Medications: Current Medications Sodium Chloride (Ns) 1,000 mls @ 50 mls/hr IVCONT .Q20H HI Home Medications ?Medication ?Instructions ?Recorded ?Confirmed ?Last Taken ?Type methadone 10 mg/mL oral mg PO DAILY 12/21/23 Unknown History concentrate (Methadone Intensol) Physical Exam 2 Vital Signs and Narrative: Vital Signs: Last Vital Signs Temp 98.7 F 12/21/23 07:34 Pulse 91 12/21/23 10:00 Resp 14 12/21/23 10:00 BP 128/79 12/21/23 10:00 Pulse Ox 92 12/21/23 10:00 O2 Del Method Room Air 12/21/23 10:00 BMI result Body Mass Index 39.9 .Constitutional: Alert, in no acute dist ress. Mental Status: Oriented to person, place and time. Eyes: Pupils are equal, round, and reactive to light. Ear, Nose, and Throat: Oropharynx clear, mucous membranes moist. Ears and nose without deformities. Trachea midline. Respiratory: Clear to auscultation bilaterally. No wheezing, rales, or rhonchi. Cardiovascular: S1, S2 regular. No murmurs, rubs, or gallops. Gastrointestinal: Abdomen soft, non-tender, non-distended. Normal bowel sounds. Neurologic: Cranial nerves II-XII are grossly intact bilaterally. No focal neurological deficits. Moves all extremities spontaneously. Skin: Multiple areas of superficial excoriations on legs, feet, and chest. Significant area of excoriations on right upper extremity as pictured below. Musculoskeletal: No cyanosis or clubbing. Extremities: Left lower extremity swelling and tenderness. Left foot swelling, erythema, warmth, and tenderness. As pictured below Psychiatric: Normal mood and affect. Results Labs 12/21/23 08:57 12/21/23 08:57 Labs: Laboratory Results - last 24 hr 12/21/23 12/21/23 12/21/23 08:56 08:57 11:16 MCV 85.9 MCH 28.8 MCHC 33.6 RDW 14.6 Plt Count 267 MPV 10.1 Immature Gran % (Auto) 1.1 H Neut % (Auto) 85.7 H Lymph % (Auto) 6.3 L [place] % (Auto) 5.7 Eos % (Auto) 0.8 Baso % (Auto) 0.4 Lymph # (Auto) 1.0 L [place] # (Auto) 0.9 Eos # (Auto) 0.1 Baso # (Auto) 0.1 Abs Immat Gran (auto) 0.17 H Absolute Neuts (auto) 13.1 H Absolute Nucleated RBC 0.000 Nucleated RBC % (auto) 0.0 Anion Gap 14 Estim Creat Clear Calc 163.0 Estimated GFR > 60 Random Glucose 136 H Lactic Acid 1.5 Calcium 9.1 Magnesium 1.9 Total Bilirubin 1.5 H Direct Bilirubin 0.9 H AST 36 ALT 78 H Alkaline Phosphatase 108 Total Creatine Kinase 70 Troponin I High Sens 105.7 H* 74.8 H B-Natriuretic Peptide 85 Total Protein 7.0 Albumin 3.5 Influenza Type A (PCR) NEGATIVE Influenza Type B (PCR) NEGATIVE RSV RNA Qual (PCR) NEGATIVE SARS-CoV-2 RNA (RT-PCR) NEGATIVE Imaging Radiologist's Impressions: Impressions Foot X-Ray 12/21/23 08:10 IMPRESSION: Distal dorsal soft tissue swelling. No acute bony pathology. Chest X-Ray 12/21/23 09:44 IMPRESSION: Moderate patchy bibasilar opacities may represent atelectasis and/or pneumonia. This study was presented today December 21, 2023 for interpretation. Stat results provided at this time as requested by referring provider. Assessment and Plan (1) Pulmonary emboli: Qualifiers: Acute cor pulmonale presence: with acute cor pulmonale Chronicity: a cute Pulmonary embolism type: unspecified Qualified Code(s): I26.09 - Other pulmonary embolism with acute cor pulmonale Status: Acute (2) DVT (deep venous thrombosis): Qualifiers: Affected thrombotic vein of extremity: popliteal Chronicity: acute DVT location: lower extremity Laterality: left Qualified Code(s): I82.432 - Acute embolism and thrombosis of left popliteal vein Status: Acute (3) Cellulitis: Qualifiers: Laterality: left Site of cellulitis: extremity Site of cellulitis of extremity: lower extremity Qualified Code(s): L03.116 - Cellulitis of left lower limb Status: Acute Plan Pt is a 53-year-old male with a PMH significant for?opiate use disorder on Suboxone, polysubstance use disorder, mild intermittent asthma, anxiety, and depression who presents to the ED with multiple complaints, including excoriations and scabbing on right arm, and left leg and foot swelling, redness, and pain. Pt will be admitted to the hospital for treatment and further evaluation of left lower extremity DVT, pulmonary emboli, and left foot cellulitis. Pulmonary emboli CTA with small segmental and subsegmental PE to right upper, middle, and lower lobes, possible subsegmental PE to left lower lobe Secondary to DVT in the left popliteal and gastrocnemius veins Will treat with therapeutic Lovenox: 105mg IV q12h Analgesics for pain management Monitor on telemetry Left lower extremity cellulitis Patient meets sepsis tachycardia >90, leukocytosis 15.3; lactic acid WNL at 1.5 Given IVF and started on broad-spectrum antibiotics in the ED Will treat with vancomycin, started 12/21/2023 Hypokalemia Potassium 2 point time presentation Supplemented with IV and p.o. potassium in the ED Follow BMP, supplement as necessary Elevated troponins Initial troponin 105.7 with flat at 74.8 EKG with diffuse T-wave inversion in inferior and anterior leads Patient asymptomatic: Denies chest pain/pressure, palpitations Likely secondary to pulmonary emboli Treat as above Monitor on telemetry Skin excoriations Patient with multiple areas pruritic superficial skin excoriations, worse on right upper extremity Unclear etiology: ? Cocaine induced vasculitis Will check HIV status Polysubstance use disorder Reports smoking crack and snorting heroin, last used 2-3 days ago Denies IVDU Given methadone 40 mg p.o. ED Addiction medicine consult Mild intermittent asthma Not in acute exacerbation Albuterol inhaler p.r.n. Full Code Attending:?Dr. Mccoy DVT Prophylaxis: On therapeutic Lovenox Pt will require a hospitalization of at least two nights for treatment of?pulmonary emboli, DVT, and left foot cellulitis. Patient will require hospitalization for administration of therapeutic Lovenox, IV antibiotics, and close monitoring of CBC, BMP, and cardiac function. Quality Stroke Does the patient have a stroke diagnosis?: No VTE Prior VTE?: No VTE Risk Level:: Medical - moderate - high VTE Device Contraindication: Treatment Not Indicated VTE Drug Contraindication: N/A - Med Ordered
[2023-12-21] MEDS: Lidocaine HCl Viscous 2 % 15 ML SOLUTION MUCOUS MEM (12:36)
[2023-12-21] MEDS: 0.9 % Sodium Chloride 1,000 ML 50 ML IVCONT (12:36)
--- NOTE | 2023-12-21 12:37 | PC.NURSE ---
Lovenox requested from pharmacy
[2023-12-21 12:40] LABS: INTERNATIONAL NORM RATIO 1.4 (0.9-1.1); Prothrombin Time 17.4 SEC (11.1-13.3)
[2023-12-21 12:43] LABS: Partial Thromboplastin Time 31.6 SEC (26.0-36.8)
[2023-12-21] MEDS: Enoxaparin Sodium 120 MG/0.8 ML SYRINGE 105 MG SUBCUT (13:00)
[2023-12-21] MEDS: iohexoL 350 MG/ML 100 ML INFUS..BTL IV (13:30)
--- NOTE | 2023-12-21 13:35 | PC.NURSE ---
ECHO at bedside at this time.
--- NOTE | 2023-12-21 13:39 | PC.NURSE ---
IV potassium infusion slowed down multiple times due to pt intolerance, combined with NS IVF as well to assist.
--- NOTE | 2023-12-21 14:10 | PHA.PROG ---
Admission Date/Time: December 21, 2023 13:36 Indication: Skin Weight in k.862 kg Adjusted body weight in Kg: [place] body weight in Kg: Obesity Dosing Indication % IBW: Serum Creatinine - Last 168 Hours 12/21/23 08:57 Creatinine 0.61 Estimated CrCl and GFR - Last 168 Hours 12/21/23 08:57 Estim Creat Clear Calc 163.0 Estimated GFR > 60 Vancomycin Loading Dose: 2000mg x 1 Current Vancomycin Dosing Regimen: 1500mg Q12H Vancomycin Monitoring using AUC goal of 400 - 600 range with trough as surrogate marker: 463 mg/L Date and Time for next Vancomycin Level to be drawn: 12/21 @2100 Pharmacist Comments on Vancomycin Plan: Patient has a BMI of 39.9, obese model being used. Predicted trough of 11.9 mg/L. Will continue to monitor and adjust as necessary. Beware dose dumping Vancomycin dosing will take advantage of [employer] as a clinical decision support tool that uses Bayesian modeling to calculate individual patient's pharmacokinetic parameters and forecast the patient's drug concentration time course with the target goal AUC 24 range of 400 - 600 mg/L/hr.
--- NOTE | 2023-12-21 15:25 | MHC.RECOVRN ---
Met with pt to follow up after receiving methadone and morphine this morning for opioid withdrawal symptoms. Pt laying in bed, eyes closed, wakes to voice, appears comfortable. Pt reports feeling better, reports continued body/joint aches as well as upset stomach. Pt would like to continue methadone titration. Denies other questions or concerns for t/w. Neela Oneil APRN, aware.
--- NOTE | 2023-12-21 15:30 | PHA.MEDREC ---
Pharmacy Consult ? Medication Reconciliation Pharmacy has completed the medication reconciliation. Tried to talk to patient but he kept falling asleep. He mentioned that he was on trazodone and something for depression but couldn't tell me the name, he was taking it at [facility] and he hasn't had them in about 2 weeks. He said he uses [facility]. I spoke to a pharmacist there. She said that there are suboxone 8/2 mg films (1 film bid filled on 12/12/[address] Cross) and narcan but he hasn't picked them up yet. Patient also said that he gets methadone at the clinic in [place] but fell asleep before I could get more information.
--- NOTE | 2023-12-21 19:18 | PC.NURSE ---
Assumed care of pt. Pt lying on stretcher, no acute distress at this time. Pt provided dinner tray. VSS. Continuing plan of care.
[2023-12-21] MEDS: Acetaminophen 325 MG TABLET 650 MG PO (23:10)
[2023-12-21] MEDS: vancomycin HCL 1,500 MG in 0.9 % Sodium Chloride 500 ML 333.33 MG IV (23:10)
[2023-12-21] MEDS: Melatonin 3 MG TABLET 6 MG PO (23:10)
[2023-12-22] VITALS (9 sets, daily range): BP systolic 106–132; BP diastolic 59–86; PULSE 90–107; RESP 16–21; TEMP 36.1–37.3; O2SAT 93–98
[2023-12-22] MEDS: Enoxaparin Sodium 120 MG/0.8 ML SYRINGE 105 MG SUBCUT ×3 (00:19→22:39)
[2023-12-22] MEDS: HYDROmorphone HCl 1 MG/ML SYRINGE IVPUSH (02:06)
[2023-12-22] MEDS: Prochlorperazine Edisylate 10 MG/2 ML VIAL IVPUSH (02:30)
[2023-12-22] MEDS: Pantoprazole Sodium 40 MG/10 ML VIAL IVPUSH ×2 (03:30→16:20)
[2023-12-22] MEDS: Magnesium Hydrox/Alum Hydrox 30 ML ORAL.SUSP PO (03:30)
[2023-12-22 06:02] LABS: Anion Gap 14 (12-20); Blood Urea Nitrogen 11 mg/dL (9-16); Calcium 8.5 mg/dL (8.4-10.2); Carbon Dioxide 23 mmol/L (22-29); Chloride 106 mmol/L (96-108); Creatinine Clr Calc Pharmacy 155.3; Estimated Glomerular Filt Rate > 60; Glucose Random 110 mg/dL (60-115); Magnesium 2.4 mg/dL (1.6-2.6); Potassium 4.2 mmol/L (3.3-5.1); Sodium 139 mmol/L (135-145)
[2023-12-22] MEDS: Acetaminophen 325 MG TABLET 650 MG PO ×2 (06:54→20:23)
[2023-12-22] MEDS: 0.9 % Sodium Chloride 1,000 ML 50 ML IVCONT (06:57)
[2023-12-22] MEDS: 0.9 % Sodium Chloride Flush 3 ML SYRINGE IVFLUSH ×2 (07:47→16:20)
[2023-12-22] MEDS: methADONE HCl 20 MG/2 ML ORAL.CONC 45 MG PO (07:47)
[2023-12-22 08:39] LABS: HIV AB/AG Nonreactive (Nonreactive); HIV Num 1 0.05 S/CO (0.00-0.99)
[2023-12-22 08:46] LABS: Hematocrit 38.9 % (42.0-52.0); Hemoglobin 12.6 g/dl (14.0-18.0); Mean Corpuscular HGB Conc 32.4 g/dl (31.0-36.0); Mean Corpuscular Hemoglobin 28.7 pg (27.0-33.0); Mean Corpuscular Volume 88.6 fL (80.0-98.0); Mean Platelet Volume 10.3 fL (9.4-12.4); NRBC Pct Auto 0.1 /100WBC (0.0-0.2); Platelet Count 305 X10*3/uL (160-400); Red Blood Count 4.39 X10*6/uL (4.60-5.80); Red Cell Distribution Width 14.8 % (11.0-16.0); White Blood Count 15.6 X10*3/uL (4.8-10.8)
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
--- NOTE | 2023-12-22 10:59 | MHC.RECOVRN ---
Pts methadone referral sent to [facility].
[2023-12-22] MEDS: ondansetron HCL 4 MG/2 ML VIAL IVPUSH ×2 (11:02→22:39)
[2023-12-22] MEDS: Morphine Sulfate 2 MG/ML CARTRIDGE IVPUSH ×4 (11:02→22:13)
[2023-12-22] MEDS: vancomycin HCL 1,500 MG in 0.9 % Sodium Chloride 500 ML 333.33 MG IV (11:13)
[2023-12-22 12:35] LABS: INTERNATIONAL NORM RATIO 1.4 (0.9-1.1); Prothrombin Time 17.2 SEC (11.1-13.3)
--- NOTE | 2023-12-22 13:54 | P.PNIM_ITS ---
Subjective Subjective Date of Service: 12/22/23 Interval History: seen and evaluated this morning complaining of pain in his leg , swelling little less denies dyspnea no other events Review of Systems Review of Systems: Yes all other systems are reviewed and are negative Physical Exam 2 Vital Signs: Vital Signs: Last Vital Signs Temp 97 F 12/22/23 11:24 Pulse 90 12/22/23 11:24 Resp 20 12/22/23 11:24 BP 119/71 12/22/23 11:24 Pulse Ox 95 12/22/23 11:24 O2 Del Method Room Air 12/22/23 11:24 BMI result Body Mass Index 39.9 Const: Other: Constitutional : Awake, interactive, not in distress Neck : Normal inspection, Supple Cardiovascular : RRR, no JVP, no lower extremity edema Respiratory : good bilateral air entry, no crackles, wheezes or rhonchi Gastrointestinal: soft, lax, Normal bowel sounds, Non tender Skin : Warm, Dry, LLE foot with large erythema, swelling and tenderness , multiple areas of excoriations on legs, arms and chest. Neurological : Alert & oriented x3, No focal deficit Objective Data Active Medications Acetaminophen (Acetaminophen 325 Mg Tablet) 650 mg PO Q6H PRN PRN Reason: Pain, Mild (Pain Scale 1-3) Last Admin: 12/22/23 06:54 Dose: 650 mg Documented By: ANKITA Benzonatate (Benzonatate 100 Mg Capsule) 100 mg PO TID PRN PRN Reason: Cough Docusate Sodium (Docusate Sodium 100 Mg Capsule) 100 mg PO DAILY PRN PRN Reason: Constipation Enoxaparin Sodium (Enoxaparin Sodium 120 Mg/0.8 Ml Syringe) 105 mg SUBCUT Q12H [facility] Last Admin: 12/22/23 11:14 Dose: 105 mg Documented By: JOSELUIS Sodium Chloride (Ns) 1,000 mls @ 50 mls/hr IVCONT .Q20H [facility] Last Admin: 12/22/23 06:57 Dose: 50 mls/hr Documented By: ANKITA Vancomycin HCl 1,500 mg/ (Sodium Chloride) 500 mls @ 333.333 mls/hr IV Q12H [facility] Last Infusion: 12/22/23 13:12 Dose: Infused Documented By: JOSELUIS Melatonin (Melatonin 3 Mg Tablet) 6 mg PO BEDTIME PRN PRN Reason: Insomnia Last Admin: 12/21/23 23:10 Dose: 6 mg Documented By: HILLARY Methadone HCl (Methadone Hcl 20 Mg/2 Ml Oral.Conc) 45 mg PO DAILY@0800 [facility] Last Admin: 12/22/23 07:47 Dose: 45 mg Documented By: JOSELUIS Morphine Sulfate (Morphine Sulfate 2 Mg/Ml Cartridge) 2 mg IVPUSH Q4H PRN; Protocol PRN Reason: Pain, Severe (Pain Scale 7-10) Last Admin: 12/22/23 11:02 Dose: 2 mg Documented By: JOSELUIS Ondansetron HCl (Ondansetron Hcl 4 Mg/2 Ml Vial) 4 mg IVPUSH Q8H PRN PRN Reason: Nausea and Vomiting Last Admin: 12/22/23 11:02 Dose: 4 mg Documented By: JOSELUIS Pantoprazole Sodium (Pantoprazole Sodium 40 Mg/10 Ml Vial) 40 mg IVPUSH BID@0630,1630 [facility] Last Admin: 12/22/23 03:30 Dose: 40 mg Documented By: HILLARY Pharmacy Consult (Consult Rx Vancomycin Dosing) 1 each MISCELLANE DAILY PRN PRN Reason: Consult order Prochlorperazine Edisylate (Prochlorperazine Edisylate 10 Mg/2 Ml Vial) 10 mg IVPUSH Q6H PRN PRN Reason: Nausea and Vomiting Last Admin: 12/22/23 02:30 Dose: 10 mg Documented By: HILLARY Sodium Chloride (0.9 % Sodium Chloride Flush 3 Ml Syringe) 3 ml IVFLUSH QSNVFT [facility] Last Admin: 12/22/23 07:47 Dose: 3 ml Documented By: JOSELUIS Labs 12/22/23 07:47 12/22/23 04:55 Labs: Laboratory Results - last 24 hr 12/22/23 12/22/23 12/22/23 04:55 07:47 12:10 MCV 88.6 MCH 28.7 MCHC 32.4 RDW 14.8 Plt Count 305 MPV 10.3 Absolute Nucleated RBC 0.020 H Nucleated RBC % (auto) 0.1 PT 17.2 H INR 1.4 H Anion Gap 14 Estim Creat Clear Calc 155.3 Estimated GFR > 60 Random Glucose 110 Calcium 8.5 D Magnesium 2.4 HIV 1&2 Ab/P24 Ag 4thGn Nonreactive Microbiology Microbiology Results: Microbiology 12/21/23 08:56 Blood Culture - Preliminary Blood - Venous No growth after 24 hours. 12/21/23 08:57 Blood Culture - Preliminary Blood - Venous No growth after 24 hours. Assessment and Plan (1) Pulmonary emboli: Status: Acute (2) DVT (deep venous thrombosis): Status: Acute (3) Cellulitis: Status: Acute Plan Pt is a 53-year-old male with a PMH significant for?opiate use disorder on Suboxone, polysubstance use disorder, mild intermittent asthma, anxiety, and depression who presents to the ED with multiple complaints, including excoriations and scabbing on right arm, and left leg and foot swelling, redness, and pain. Pt will be admitted to the hospital for treatment and further evaluation of left lower extremity DVT, pulmonary emboli, and left foot cellulitis. acute Pulmonary emboli CTA with small segmental and subsegmental PE to right upper, middle, and lower lobes, possible subsegmental PE to left lower lobe Secondary to DVT in the left popliteal and gastrocnemius veins therapeutic Lovenox: 105mg IV q12h Analgesics for pain management Monitor on telemetry Sepsis 10/07 Left lower extremity cellulitis Continue with vancomycin, started 12/21/2023 Follow Trough Hypokalemia Follow BMP, supplement as necessary Elevated troponins Patient asymptomatic: Denies chest pain/pressure, palpitations Likely secondary to pulmonary emboli Monitor on telemetry Skin excoriations Patient with multiple areas pruritic superficial skin excoriations, worse on right upper extremity Negative HIV status Polysubstance use disorder Reports smoking crack and snorting heroin, last used 2-3 days ago Denies IVDU Given methadone 40 mg p.o. ED Addiction medicine consult Mild intermittent asthma Not in acute exacerbation Albuterol inhaler p.r.n. Full Code DVT Prophylaxis: On therapeutic Lovenox Pt will require a hospitalization of at least two nights for treatment of?pulmonary emboli, DVT, and left foot cellulitis. Patient will require hospitalization for administration of therapeutic Lovenox, IV antibiotics, and close monitoring of CBC, BMP, and cardiac function. Quality Stroke Does the patient have a stroke diagnosis?: No VTE Prior VTE?: No VTE Risk Level:: Medical - moderate - high VTE Device Contraindication: Treatment Not Indicated VTE Drug Contraindication: N/A - Med Ordered
[2023-12-22] MEDS: Albuterol Sulfate (0.083%) 2.5 MG/3 ML VIAL.NEB INHALE (17:27)
[2023-12-22] MEDS: methADONE HCl 20 MG/2 ML ORAL.CONC 5 MG PO (20:20)
[2023-12-22 21:28] LABS: Vancomycin Trough 9.9 mcg/mL (10.0-20.0)
--- NOTE | 2023-12-22 21:49 | HE.PHANOTE ---
SUZANNE Increased dose to 1750 mg Q12H per subtherapeutic trough of 9.9. Predicted AUC 462, predicted trough 11.6, next trough to be drawn 12/22 @2100.
[2023-12-22] MEDS: vancomycin HCL 1,000 MG, vancomycin HCL 750 MG in 0.9 % Sodium Chloride 500 ML 267.5 MG IV (22:17)
[2023-12-23] VITALS (10 sets, daily range): BP systolic 103–160; BP diastolic 63–72; PULSE 82–94; RESP 17–22; TEMP 36.3–36.8; O2SAT 94–97
[2023-12-23] MEDS: Morphine Sulfate 2 MG/ML CARTRIDGE IVPUSH ×5 (01:30→21:21)
[2023-12-23] MEDS: Acetaminophen 325 MG TABLET 650 MG PO (04:24)
[2023-12-23] MEDS: 0.9 % Sodium Chloride 1,000 ML 50 ML IVCONT (04:55)
[2023-12-23] MEDS: Pantoprazole Sodium 40 MG/10 ML VIAL IVPUSH ×2 (04:55→16:25)
[2023-12-23 07:27] LABS: Anion Gap 11 (12-20); Blood Urea Nitrogen 9 mg/dL (9-16); Calcium 8.6 mg/dL (8.4-10.2); Carbon Dioxide 26 mmol/L (22-29); Chloride 106 mmol/L (96-108); Creatinine Clr Calc Pharmacy 148.4; Estimated Glomerular Filt Rate > 60; Glucose Random 130 mg/dL (60-115); Potassium 3.9 mmol/L (3.3-5.1); Sodium 139 mmol/L (135-145)
[2023-12-23] MEDS: 0.9 % Sodium Chloride Flush 3 ML SYRINGE IVFLUSH ×3 (07:50→21:21)
[2023-12-23] MEDS: methADONE HCl 20 MG/2 ML ORAL.CONC 45 MG PO (07:53)
[2023-12-23] MEDS: Enoxaparin Sodium 120 MG/0.8 ML SYRINGE 105 MG SUBCUT (11:07)
[2023-12-23] MEDS: vancomycin HCL 1,000 MG, vancomycin HCL 750 MG in 0.9 % Sodium Chloride 500 ML 267.5 MG IV ×2 (11:08→22:22)
--- NOTE | 2023-12-23 12:10 | HO.ADDICT_ITS ---
History of Present Illness Date of Service: 12/22/2023 Chief Complaint: Left leg cellulitis, DVT Sources of Information: patient interviewed and chart reviewed HPI Narrative: Patient currently medically admitted with cellulitis of the lower leg, PE and DVT. Was started on methadone while in ED. Reporting 3-4 bundles IN use--assistant hall director note reviewed for substance use history Dose at 45mg this morning, patient reports adequate management of withdrawal sx, however having issues with sleep and feels that methadone wears off before time for next dose. Appeared comfortable when seen by this science writer and assistant hall director He denies any withdrawal sx. Verbalizing concern for plan following discharged as he is currently unstably housed. Would like to continue with methadone at [facility] upon discharge Review of Systems Constitutional: Reports as per HPI and Reports no additional constitutional complaints Diagnostics Vital Signs (24Hr): Vital Signs - 24 hr 12/22/23 15:16 12/22/23 17:28 12/22/23 19:29 Temperature 99.1 F 98.1 F Pulse Rate 95 95 95 Respiratory Rate 18 18 21 H Blood Pressure 116/65 106/59 L Pulse Oximetry 93 94 Oxygen Delivery Method Room Air Room Air 12/22/23 22:13 12/23/23 00:00 12/23/23 01:30 Temperature 98.0 F Pulse Rate 94 Respiratory Rate 16 20 22 H Blood Pressure 118/66 Pulse Oximetry 96 Oxygen Delivery Method Room Air 12/23/23 04:00 12/23/23 04:56 12/23/23 08:00 Temperature 97.5 F 98.2 F Pulse Rate 92 91 Respiratory Rate 20 18 18 Blood Pressure 134/72 103/64 Pulse Oximetry 96 96 Oxygen Delivery Method Room Air Room Air 12/23/23 11:46 Temperature 97.3 F Pulse Rate 82 Respiratory Rate 18 Blood Pressure 108/72 Pulse Oximetry 94 Oxygen Delivery Method Room Air BMI result Body Mass Index 39.9 Labs 12/22/23 07:47 12/23/23 06:18 Labs: Laboratory Results - last 48 hr 12/21/23 12/22/23 12/22/23 12:27 04:55 07:47 WBC 15.6 H RBC 4.39 L Hgb 12.6 L Hct 38.9 L MCV 88.6 MCH 28.7 MCHC 32.4 RDW 14.8 Plt Count 305 MPV 10.3 Absolute Nucleated RBC 0.020 H Nucleated RBC % (auto) 0.1 PT 17.4 H INR 1.4 H APTT 31.6 Sodium 139 Potassium 4.2 D Chloride 106 Carbon Dioxide 23 Anion Gap 14 BUN 11 Creatinine 0.64 Estim Creat Clear Calc 155.3 Estimated GFR > 60 Random Glucose 110 Calcium 8.5 D Magnesium 2.4 Vancomycin Trough HIV 1&2 Ab/P24 Ag 4thGn Nonreactive 12/22/23 12/22/23 12/23/23 12:10 21:01 06:18 WBC RBC Hgb Hct MCV MCH MCHC RDW Plt Count MPV Absolute Nucleated RBC Nucleated RBC % (auto) PT 17.2 H INR 1.4 H APTT Sodium 139 Potassium 3.9 Chloride 106 Carbon Dioxide 26 Anion Gap 11 L BUN 9 Creatinine 0.67 Estim Creat Clear Calc 148.4 Estimated GFR > 60 Random Glucose 130 H Calcium 8.6 Magnesium Vancomycin Trough 9.9 L HIV 1&2 Ab/P24 Ag 4thGn Imaging Radiology Impressions: ITS Impressions Foot X-Ray 12/21/23 08:10 IMPRESSION: Distal dorsal soft tissue swelling. No acute bony pathology. Chest X-Ray 12/21/23 09:44 IMPRESSION: Moderate patchy bibasilar opacities may represent atelectasis and/or pneumonia. This study was presented today December 21, 2023 for interpretation. Stat results provided at this time as requested by referring provider. Venous Duplex 12/21/23 11:43 IMPRESSION: * Positive DVT. * DVT demonstrated in the left popliteal and gastrocnemius veins. * Mildly prominent lymph nodes in the inguinal regions bilaterally measure up to 3.1 cm on the left and 3.1 cm on the right. Uncertain etiology. Please correlate with the clinical exam. * Technologist indicates that the result has been discussed with the provider by technologist at 11:45 AM. (Referring physician staff is being called, by physician staff assistance, to be alerted of the above critical findings and recommendations.) TC 12/21/2023 12:26 PM Chest CTA 12/21/23 13:38 IMPRESSION: Small segmental and subsegmental pulmonary emboli to the right upper, middle and lower lobes. Cannot exclude a tiny subsegmental pulmonary embolus to the left lower lobe. No evidence of right heart strain. VTE: positive. This critical result was discussed with Tiffani Alexandra M.D. at 1512 on 12/21/2023 and it was ascertained that the content and urgency of the report was understood at the time of direct communication. Mental Status Exam Mental Status Exam Patient Appearance: Appropriate Level of Consciousness: Awake and Alert Patient Behavior: Appropriate and Talkative Mood Description: Calm Affect Description: Calm Medications Medications Current Medications Acetaminophen (Acetaminophen 325 Mg Tablet) 650 mg PO Q6H PRN PRN Reason: Pain, Mild (Pain Scale 1-3) Last Admin: 12/23/23 04:24 Dose: 650 mg Albuterol Sulfate (Albuterol Sulfate (0.083%) 2.5 Mg/3 Ml Vial.Neb) 2.5 mg INHALE Q4H PRN PRN Reason: Shortness of Breath/Wheezing Last Admin: 12/22/23 17:27 Dose: 2.5 mg Benzocaine (Throat Lozenge, Medicated Lozenge) 1 lozenge MUCOUS MEM Q2H PRN PRN Reason: Sore Throat Benzonatate (Benzonatate 100 Mg Capsule) 100 mg PO TID PRN PRN Reason: Cough Docusate Sodium (Docusate Sodium 100 Mg Capsule) 100 mg PO DAILY PRN PRN Reason: Constipation Enoxaparin Sodium (Enoxaparin Sodium 120 Mg/0.8 Ml Syringe) 105 mg SUBCUT Q12H [facility] Last Admin: 12/23/23 11:07 Dose: 105 mg Vancomycin HCl 1,000 mg/Vancomycin HCl 750 mg/ Sodium Chloride 535 mls @ 267.5 mls/hr IV Q12H [facility] Last Admin: 12/23/23 11:08 Dose: 267.5 mls/hr Melatonin (Melatonin 3 Mg Tablet) 6 mg PO BEDTIME PRN PRN Reason: Insomnia Last Admin: 12/21/23 23:10 Dose: 6 mg Methadone HCl (Methadone Hcl 20 Mg/2 Ml Oral.Conc) 45 mg PO DAILY@0800 [facility] Last Admin: 12/23/23 07:53 Dose: 45 mg Methadone HCl (Methadone Hcl 20 Mg/2 Ml Oral.Conc) 5 mg PO BEDTIME [facility] Last Admin: 12/22/23 20:20 Dose: 5 mg Morphine Sulfate (Morphine Sulfate 2 Mg/Ml Cartridge) 2 mg IVPUSH Q4H PRN; Protocol PRN Reason: Pain, Severe (Pain Scale 7-10) Last Admin: 12/23/23 09:29 Dose: 2 mg Ondansetron HCl (Ondansetron Hcl 4 Mg/2 Ml Vial) 4 mg IVPUSH Q8H PRN PRN Reason: Nausea and Vomiting Last Admin: 12/22/23 22:39 Dose: 4 mg Pantoprazole Sodium (Pantoprazole Sodium 40 Mg/10 Ml Vial) 40 mg IVPUSH BID@0630,1630 [facility] Last Admin: 12/23/23 04:55 Dose: 40 mg Pharmacy Consult (Consult Rx Vancomycin Dosing) 1 each MISCELLANE DAILY PRN PRN Reason: Consult order Prochlorperazine Edisylate (Prochlorperazine Edisylate 10 Mg/2 Ml Vial) 10 mg IVPUSH Q6H PRN PRN Reason: Nausea and Vomiting Last Admin: 12/22/23 02:30 Dose: 10 mg Sodium Chloride (0.9 % Sodium Chloride Flush 3 Ml Syringe) 3 ml IVFLUSH QSHIFT [facility] Last Admin: 12/23/23 07:50 Dose: 3 ml Allergies Allergies Allergy/AdvReac Type Severity Reaction Status Date / Time No Known Allergies Allergy Verified 12/21/23 07:36 [No Known Allergies*] Assessment & Plan Assessment & Plan (1) Opioid use disorder: Status: Acute Code(s): F11.90 - Opioid use, unspecified, uncomplicated Assessment and Plan: * continue methadone 45mg daily * will add 5mg at bedtime Total time managing care of this patient today _20__ minutes. PMFSH Past Medical History Medical History (Updated 12/21/23 @ 15:21 by SURENDRA Miller) Mild intermittent asthma Opioid use disorder Anxiety Depression Social History Social History Household Members: None Housing: Homeless Do you presently have visiting nurse or other home services: No Patient Tobacco Use Status: Current everyday Tobacco user Tobacco use type: Cigarette Cigarettes Per Day: 6 Substance Use Type: Crack/Cocaine and Heroin service: No
--- NOTE | 2023-12-23 13:20 | MHC.CM.PN ---
CM met with pt. to let him know that the provider is thinks he may be ready for DC tomorrow. He was discouraged about this since he is homeless and said he is not walking now and that his foot is still swollen. I asked him if he would go to [facility] if recommeded and he said that he would. CM to follow and assist with DC plan.
--- NOTE | 2023-12-23 13:26 | MHC.RECOVRN ---
Met with pt to follow up regarding methadone dose and additional 5 mg received last night. Pt reports he slept well, is eating, and feeling better. Pt reports positive effect with 5 mg evening dose. Denies withdrawal symptoms. Denies questions or concerns for t/w. Neela Oneil APRN, aware.
--- NOTE | 2023-12-23 16:34 | P.PNIM_ITS ---
Subjective Subjective Date of Service: 12/23/23 Interval History: seen and evaluated this morning Pain improved, still having in LLE but overall better difficulties walking, no place to go to no other events Review of Systems Review of Systems: Yes all other systems are reviewed and are negative Physical Exam 2 Vital Signs: Vital Signs: Last Vital Signs Temp 97.4 F 12/23/23 16:00 Pulse 86 12/23/23 16:00 Resp 18 12/23/23 16:00 BP 116/67 12/23/23 16:00 Pulse Ox 96 12/23/23 16:00 O2 Del Method Room Air 12/23/23 16:00 BMI result Body Mass Index 39.9 Const: Other: Constitutional : Awake, interactive, not in distress Neck : Normal inspection, Supple Cardiovascular : RRR, no JVP, no lower extremity edema Respiratory : good bilateral air entry, no crackles, wheezes or rhonchi Gastrointestinal: soft, lax, Normal bowel sounds, Non tender Skin : Warm, Dry, LLE foot with less erythema, swelling and tenderness , multiple areas of excoriations on legs, arms and chest. Neurological : Alert & oriented x3, No focal deficit Objective Data Active Medications Acetaminophen (Acetaminophen 325 Mg Tablet) 650 mg PO Q6H PRN PRN Reason: Pain, Mild (Pain Scale 1-3) Last Admin: 12/23/23 04:24 Dose: 650 mg Documented By: JULIOCESAR Albuterol Sulfate (Albuterol Sulfate (0.083%) 2.5 Mg/3 Ml Vial.Neb) 2.5 mg INHALE Q4H PRN PRN Reason: Shortness of Breath/Wheezing Last Admin: 12/22/23 17:27 Dose: 2.5 mg Documented By: MILA Benzocaine (Throat Lozenge, Medicated Lozenge) 1 lozenge MUCOUS MEM Q2H PRN PRN Reason: Sore Throat Benzonatate (Benzonatate 100 Mg Capsule) 100 mg PO TID PRN PRN Reason: Cough Docusate Sodium (Docusate Sodium 100 Mg Capsule) 100 mg PO DAILY PRN PRN Reason: Constipation Enoxaparin Sodium (Enoxaparin Sodium 120 Mg/0.8 Ml Syringe) 105 mg SUBCUT Q12H [facility] Last Admin: 12/23/23 11:07 Dose: 105 mg Documented By: EMIR Vancomycin HCl 1,000 mg/Vancomycin HCl 750 mg/ Sodium Chloride 535 mls @ 267.5 mls/hr IV Q12H [facility] Last Infusion: 12/23/23 15:11 Dose: Infused Documented By: EIMR Melatonin (Melatonin 3 Mg Tablet) 6 mg PO BEDTIME PRN PRN Reason: Insomnia Last Admin: 12/21/23 23:10 Dose: 6 mg Documented By: HILLARY Methadone HCl (Methadone Hcl 20 Mg/2 Ml Oral.Conc) 45 mg PO DAILY@0800 [facility] Last Admin: 12/23/23 07:53 Dose: 45 mg Documented By: EMIR Methadone HCl (Methadone Hcl 20 Mg/2 Ml Oral.Conc) 5 mg PO BEDTIME [facility] Last Admin: 12/22/23 20:20 Dose: 5 mg Documented By: BABITA Morphine Sulfate (Morphine Sulfate 2 Mg/Ml Cartridge) 2 mg IVPUSH Q4H PRN; Protocol PRN Reason: Pain, Severe (Pain Scale 7-10) Last Admin: 12/23/23 14:13 Dose: 2 mg Documented By: CHINA Ondansetron HCl (Ondansetron Hcl 4 Mg/2 Ml Vial) 4 mg IVPUSH Q8H PRN PRN Reason: Nausea and Vomiting Last Admin: 12/22/23 22:39 Dose: 4 mg Documented By: BABITA Pantoprazole Sodium (Pantoprazole Sodium 40 Mg/10 Ml Vial) 40 mg IVPUSH BID@0630,1630 [facility] Last Admin: 12/23/23 16:25 Dose: 40 mg Documented By: ALLEY Pharmacy Consult (Consult Rx Vancomycin Dosing) 1 each MISCELLANE DAILY PRN PRN Reason: Consult order Prochlorperazine Edisylate (Prochlorperazine Edisylate 10 Mg/2 Ml Vial) 10 mg IVPUSH Q6H PRN PRN Reason: Nausea and Vomiting Last Admin: 12/22/23 02:30 Dose: 10 mg Documented By: HILLARY Sodium Chloride (0.9 % Sodium Chloride Flush 3 Ml Syringe) 3 ml IVFLUSH QSHIFT [facility] Last Admin: 12/23/23 14:14 Dose: 3 ml Documented By: CHINA Labs 12/22/23 07:47 12/23/23 06:18 Labs: Laboratory Results - last 24 hr 12/22/23 12/23/23 21:01 06:18 Anion Gap 11 L Estim Creat Clear Calc 148.4 Estimated GFR > 60 Random Glucose 130 H Calcium 8.6 Vancomycin Trough 9.9 L Microbiology Microbiology Results: Microbiology 12/21/23 08:56 Blood Culture - Preliminary Blood - Venous No growth after 48 hours. 12/21/23 08:57 Blood Culture - Preliminary Blood - Venous No growth after 48 hours. Assessment and Plan (1) Pulmonary emboli: Status: Acute (2) DVT (deep venous thrombosis): Status: Acute (3) Cellulitis: Status: Acute Plan Pt is a 53-year-old male with a PMH significant for?opiate use disorder on Suboxone, polysubstance use disorder, mild intermittent asthma, anxiety, and depression who presents to the ED with multiple complaints, including excoriations and scabbing on right arm, and left leg and foot swelling, redness, and pain. Pt will be admitted to the hospital for treatment and further evaluation of left lower extremity DVT, pulmonary emboli, and left foot cellulitis. acute Pulmonary emboli CTA with small segmental and subsegmental PE to right upper, middle, and lower lobes, possible subsegmental PE to left lower lobe Secondary to DVT in the left popliteal and gastrocnemius veins therapeutic Lovenox: 105mg IV q12h Analgesics for pain management Monitor on telemetry Sepsis 2/ Left lower extremity cellulitis Continue with vancomycin, started 12/21/2023 Follow Trough Hypokalemia Follow BMP, supplement as necessary Elevated troponins Patient asymptomatic: Denies chest pain/pressure, palpitations Likely secondary to pulmonary emboli Monitor on telemetry Skin excoriations Patient with multiple areas pruritic superficial skin excoriations, worse on right upper extremity Negative HIV status Polysubstance use disorder Reports smoking crack and snorting heroin, last used 2-3 days ago Denies IVDU Given methadone 40 mg p.o. ED Addiction medicine consult Mild intermittent asthma Not in acute exacerbation Albuterol inhaler p.r.n. Full Code DVT Prophylaxis: On therapeutic Lovenox Pt will require a hospitalization overnight for treatment of?pulmonary emboli, DVT, and left foot cellulitis. Patient will require hospitalization for administration of therapeutic Lovenox, IV antibiotics, and close monitoring of CBC, BMP, and cardiac function. Quality Stroke Does the patient have a stroke diagnosis?: No VTE Prior VTE?: No VTE Risk Level:: Medical - moderate - high VTE Device Contraindication: Treatment Not Indicated VTE Drug Contraindication: N/A - Med Ordered
--- NOTE | 2023-12-23 16:39 | PM.EVENT ---
Event Note Date of Service: 12/23/23 Event Note: Addiction note If patient discharges over the weekend, please give 5mg HS dose in the morning for a combined dose of 50mg and document this on his last dose letter. Time Spent With Patient Time: Total time managing care of this patient today ____ minutes.
[2023-12-23] MEDS: methADONE HCl 20 MG/2 ML ORAL.CONC 5 MG PO (21:21)
[2023-12-23 21:37] LABS: Vancomycin Random 13.7 mcg/mL (15-20)
[2023-12-24] VITALS (7 sets, daily range): BP systolic 114–149; BP diastolic 71–92; PULSE 81–89; RESP 16–20; TEMP 36.1–37.2; O2SAT 91–96
[2023-12-24] MEDS: Enoxaparin Sodium 120 MG/0.8 ML SYRINGE 105 MG SUBCUT (00:09)
[2023-12-24] MEDS: Morphine Sulfate 2 MG/ML CARTRIDGE IVPUSH ×5 (02:37→23:17)
[2023-12-24] MEDS: Pantoprazole Sodium 40 MG/10 ML VIAL IVPUSH ×2 (06:25→16:51)
[2023-12-24 07:12] LABS: Anion Gap 8 (12-20); Blood Urea Nitrogen 8 mg/dL (9-16); Calcium 8.7 mg/dL (8.4-10.2); Carbon Dioxide 29 mmol/L (22-29); Chloride 103 mmol/L (96-108); Creatinine Clr Calc Pharmacy 144.1; Estimated Glomerular Filt Rate > 60; Glucose Random 124 mg/dL (60-115); Potassium 4.1 mmol/L (3.3-5.1); Sodium 136 mmol/L (135-145)
[2023-12-24 07:13] LABS: Estimated Glomerular Filt Rate > 60
[2023-12-24] MEDS: methADONE HCl 20 MG/2 ML ORAL.CONC 45 MG PO (09:14)
[2023-12-24] MEDS: 0.9 % Sodium Chloride Flush 3 ML SYRINGE IVFLUSH ×3 (09:14→19:21)
[2023-12-24] MEDS: vancomycin HCL 1,000 MG, vancomycin HCL 750 MG in 0.9 % Sodium Chloride 500 ML 265.7 MG IV ×2 (11:49→23:05)
[2023-12-24] MEDS: Apixaban 5 MG TABLET 10 MG PO ×2 (11:49→20:36)
--- NOTE | 2023-12-24 12:28 | P.PNIM_ITS ---
Subjective Subjective Date of Service: 12/24/23 Interval History: seen and evaluated this morning Pain improved, swelling decreased having in LLE difficulties walking no other events Review of Systems Review of Systems: Yes all other systems are reviewed and are negative Physical Exam 2 Vital Signs: Vital Signs: Last Vital Signs Temp 97.8 F 12/24/23 10:53 Pulse 89 12/24/23 10:53 Resp 20 12/24/23 10:53 BP 133/85 12/24/23 10:53 Pulse Ox 92 12/24/23 10:53 O2 Del Method Nasal Cannula 12/24/23 10:53 O2 Flow Rate 2 12/24/23 10:53 BMI result Body Mass Index 39.9 Const: Other: Constitutional : Awake, interactive, not in distress Neck : Normal inspection, Supple Cardiovascular : RRR, no JVP, no lower extremity edema Respiratory : good bilateral air entry, no crackles, wheezes or rhonchi Gastrointestinal: soft, lax, Normal bowel sounds, Non tender Skin : Warm, Dry, LLE foot with less erythema, swelling and tenderness , multiple areas of excoriations on legs, arms and chest. Neurological : Alert & oriented x3, No focal deficit Objective Data Active Medications Acetaminophen (Acetaminophen 325 Mg Tablet) 650 mg PO Q6H PRN PRN Reason: Pain, Mild (Pain Scale 1-3) Last Admin: 12/23/23 04:24 Dose: 650 mg Documented By: JULIOCESAR Albuterol Sulfate (Albuterol Sulfate (0.083%) 2.5 Mg/3 Ml Vial.Neb) 2.5 mg INHALE Q4H PRN PRN Reason: Shortness of Breath/Wheezing Last Admin: 12/22/23 17:27 Dose: 2.5 mg Documented By: MILA Apixaban (Apixaban 5 Mg Tablet) 10 mg PO BID HI Stop: 12/30/23 21:01 Last Admin: 12/24/23 11:49 Dose: 10 mg Documented By: ALLEY Benzocaine (Throat Lozenge, Medicated Lozenge) 1 lozenge MUCOUS MEM Q2H PRN PRN Reason: Sore Throat Benzonatate (Benzonatate 100 Mg Capsule) 100 mg PO TID PRN PRN Reason: Cough Docusate Sodium (Docusate Sodium 100 Mg Capsule) 100 mg PO DAILY PRN PRN Reason: Constipation Vancomycin HCl 1,000 mg/Vancomycin HCl 750 mg/ Sodium Chloride 535 mls @ 267.5 mls/hr IV Q12H [facility] Last Admin: 12/24/23 11:49 Dose: 265.7 mls/hr Documented By: ALLEY Melatonin (Melatonin 3 Mg Tablet) 6 mg PO BEDTIME PRN PRN Reason: Insomnia Last Admin: 12/21/23 23:10 Dose: 6 mg Documented By: HILLARY Methadone HCl (Methadone Hcl 20 Mg/2 Ml Oral.Conc) 45 mg PO DAILY@0800 [facility] Last Admin: 12/24/23 09:14 Dose: 45 mg Documented By: ALLEY Methadone HCl (Methadone Hcl 20 Mg/2 Ml Oral.Conc) 5 mg PO BEDTIME [facility] Last Admin: 12/23/23 21:21 Dose: 5 mg Documented By: CHEPE Morphine Sulfate (Morphine Sulfate 2 Mg/Ml Cartridge) 2 mg IVPUSH Q4H PRN; Protocol PRN Reason: Pain, Severe (Pain Scale 7-10) Last Admin: 12/24/23 09:16 Dose: 2 mg Documented By: ALLEY Ondansetron HCl (Ondansetron Hcl 4 Mg/2 Ml Vial) 4 mg IVPUSH Q8H PRN PRN Reason: Nausea and Vomiting Last Admin: 12/22/23 22:39 Dose: 4 mg Documented By: BABITA Pantoprazole Sodium (Pantoprazole Sodium 40 Mg/10 Ml Vial) 40 mg IVPUSH BID@0630,1630 [facility] Last Admin: 12/24/23 06:25 Dose: 40 mg Documented By: ANTOIC Pharmacy Consult (Consult Rx Vancomycin Dosing) 1 each MISCELLANE DAILY PRN PRN Reason: Consult order Prochlorperazine Edisylate (Prochlorperazine Edisylate 10 Mg/2 Ml Vial) 10 mg IVPUSH Q6H PRN PRN Reason: Nausea and Vomiting Last Admin: 12/22/23 02:30 Dose: 10 mg Documented By: HILLARY Sodium Chloride (0.9 % Sodium Chloride Flush 3 Ml Syringe) 3 ml IVFLUSH QSHIFT [facility] Last Admin: 12/24/23 09:14 Dose: 3 ml Documented By: ALLEY Labs 12/22/23 07:47 12/24/23 06:15 Labs: Laboratory Results - last 24 hr 12/23/23 12/24/23 12/24/23 21:06 06:15 06:15 Hold Purple Top SEE NOTE Hold Blue Top SEE NOTE Anion Gap 8 L Estim Creat Clear Calc 140.0 144.1 Estimated GFR > 60 Random Glucose Calcium Random Vancomycin 13.7 L 12/24/23 06:15 Hold Purple Top Hold Blue Top Anion Gap Estim Creat Clear Calc Estimated GFR > 60 Random Glucose 124 H Calcium 8.7 Random Vancomycin Microbiology Microbiology Results: Microbiology 12/21/23 08:56 Blood Culture - Preliminary Blood - Venous No growth after 48 hours. 12/21/23 08:57 Blood Culture - Preliminary Blood - Venous No growth after 48 hours. Assessment and Plan (1) Pulmonary emboli: Status: Acute (2) DVT (deep venous thrombosis): Status: Acute (3) Cellulitis: Status: Acute (4) Sepsis: Status: Acute (5) Elevated troponin: Status: Acute Plan Pt is a 53-year-old male with a PMH significant for?opiate use disorder on Suboxone, polysubstance use disorder, mild intermittent asthma, anxiety, and depression who presents to the ED with multiple complaints, including excoriations and scabbing on right arm, and left leg and foot swelling, redness, and pain. Pt will be admitted to the hospital for treatment and further evaluation of left lower extremity DVT, pulmonary emboli, and left foot cellulitis. acute Pulmonary emboli CTA with small segmental and subsegmental PE to right upper, middle, and lower lobes, possible subsegmental PE to left lower lobe Secondary to DVT in the left popliteal and gastrocnemius veins dc Lovenox and start full dose Eliquis Analgesics for pain management Monitor on telemetry Sepsis 2/2 Left lower extremity cellulitis improving slowly Apply JEM wrap Continue with vancomycin, started 12/21/2023 Follow Trough Hypokalemia Follow BMP, supplement as necessary Elevated troponins Patient asymptomatic: Denies chest pain/pressure, palpitations Likely secondary to pulmonary emboli Monitor on telemetry Skin excoriations Patient with multiple areas pruritic superficial skin excoriations, worse on right upper extremity Negative HIV status Polysubstance use disorder Reports smoking crack and snorting heroin, last used 2-3 days ago Denies IVDU Given methadone 40 mg p.o. ED Addiction medicine consult Mild intermittent asthma Not in acute exacerbation Albuterol inhaler p.r.n. Full Code DVT Prophylaxis: On therapeutic Lovenox Pt will require a hospitalization overnight for treatment of?pulmonary emboli, DVT, and left foot cellulitis. Patient will require hospitalization for administration of IV antibiotics pending clinical improvement Quality Stroke Does the patient have a stroke diagnosis?: No VTE Prior VTE?: No VTE Risk Level:: Medical - moderate - high VTE Device Contraindication: Treatment Not Indicated VTE Drug Contraindication: N/A - Med Ordered
[2023-12-24] MEDS: Melatonin 3 MG TABLET 6 MG PO (20:36)
[2023-12-24] MEDS: methADONE HCl 20 MG/2 ML ORAL.CONC 5 MG PO (20:37)
--- NOTE | 2023-12-25 02:09 | PC.NURSE ---
while doing assessment pt told me he fell d/t right eye problems; flash light, pain and can't open right eye widely for months. pt said he told in ED doctor about ongoing problem of eye. MD made aware. this falling made him got cellulites to right leg; dorsum of foot warm to touch, little bit of redness, scabs on vasquez. will cont. monitor.
[2023-12-25 03:51] VITALS: BP 123/72; PULSE 87; RESP 18; TEMP 36.6; O2SAT 94
[2023-12-25] MEDS: Morphine Sulfate 2 MG/ML CARTRIDGE IVPUSH ×4 (04:21→20:56)
[2023-12-25 06:33] LABS: Anion Gap 10 (12-20); Blood Urea Nitrogen 11 mg/dL (9-16); Carbon Dioxide 29 mmol/L (22-29); Chloride 101 mmol/L (96-108); Creatinine Clr Calc Pharmacy 136.2; Estimated Glomerular Filt Rate > 60; Glucose Random 138 mg/dL (60-115); Potassium 4.3 mmol/L (3.3-5.1); Sodium 136 mmol/L (135-145)
[2023-12-25 06:34] LABS: Creatinine Clr Calc Pharmacy 136.2; Estimated Glomerular Filt Rate > 60
[2023-12-25 07:10] VITALS: BP 129/74; PULSE 92; RESP 20; TEMP 36.9; O2SAT 91
[2023-12-25] MEDS: methADONE HCl 20 MG/2 ML ORAL.CONC 45 MG PO (08:34)
[2023-12-25] MEDS: Apixaban 5 MG TABLET 10 MG PO ×2 (08:34→20:47)
[2023-12-25] MEDS: 0.9 % Sodium Chloride Flush 3 ML SYRINGE IVFLUSH ×3 (08:35→20:48)
--- NOTE | 2023-12-25 09:25 | HO.PM.IMPN ---
Subjective Subjective Date of Service: 12/25/23 Interval History: seen and evaluated this morning Pain improved, swelling decreased significantly having in LLE but able to ambulate better now no other events Review of Systems Review of Systems: Yes all other systems are reviewed and are negative Physical Exam Vital Signs: Vital Signs: Last Vital Signs Temp 98.4 F 12/25/23 07:10 Pulse 92 12/25/23 07:10 Resp 20 12/25/23 07:10 BP 129/74 12/25/23 07:10 Pulse Ox 91 L 12/25/23 07:10 O2 Del Method Room Air 12/25/23 07:10 O2 Flow Rate 2 12/24/23 10:53 BMI result Body Mass Index 39.9 Const: Other: Constitutional : Awake, interactive, not in distress Neck : Normal inspection, Supple Cardiovascular : RRR, no JVP, no lower extremity edema Respiratory : good bilateral air entry, no crackles, wheezes or rhonchi Gastrointestinal: soft, lax, Normal bowel sounds, Non tender Skin : Warm, Dry, LLE foot with decreased erythema, swelling and tenderness , multiple areas of dry excoriations on legs, arms and chest. Neurological : Alert & oriented x3, No focal deficit Objective Data Active Medications Acetaminophen (Acetaminophen 325 Mg Tablet) 650 mg PO Q6H PRN PRN Reason: Pain, Mild (Pain Scale 1-3) Last Admin: 12/23/23 04:24 Dose: 650 mg Documented By: JULIOCESAR Albuterol Sulfate (Albuterol Sulfate (0.083%) 2.5 Mg/3 Ml Vial.Neb) 2.5 mg INHALE Q4H PRN PRN Reason: Shortness of Breath/Wheezing Last Admin: 12/22/23 17:27 Dose: 2.5 mg Documented By: MILA Apixaban (Apixaban 5 Mg Tablet) 10 mg PO BID HI Stop: 12/30/23 21:01 Last Admin: 12/25/23 08:34 Dose: 10 mg Documented By: PAOLO Benzocaine (Throat Lozenge, Medicated Lozenge) 1 lozenge MUCOUS MEM Q2H PRN PRN Reason: Sore Throat Benzonatate (Benzonatate 100 Mg Capsule) 100 mg PO TID PRN PRN Reason: Cough Docusate Sodium (Docusate Sodium 100 Mg Capsule) 100 mg PO DAILY PRN PRN Reason: Constipation Vancomycin HCl 1,000 mg/Vancomycin HCl 750 mg/ Sodium Chloride 535 mls @ 267.5 mls/hr IV Q12H [facility] Last Infusion: 12/25/23 01:14 Dose: Infused Documented By: CHONG Lactic Acid (Ammonium Lactate 12 % Lotion 226 Gm Bottle) 1 appl TOPICAL BID [facility]; Protocol Melatonin (Melatonin 3 Mg Tablet) 6 mg PO BEDTIME PRN PRN Reason: Insomnia Last Admin: 12/24/23 20:36 Dose: 6 mg Documented By: JETT Methadone HCl (Methadone Hcl 20 Mg/2 Ml Oral.Conc) 45 mg PO DAILY@0800 [facility] Last Admin: 12/25/23 08:34 Dose: 45 mg Documented By: PAOLO Methadone HCl (Methadone Hcl 20 Mg/2 Ml Oral.Conc) 5 mg PO BEDTIME [facility] Last Admin: 12/24/23 20:37 Dose: 5 mg Documented By: JETT Morphine Sulfate (Morphine Sulfate 2 Mg/Ml Cartridge) 2 mg IVPUSH Q4H PRN; Protocol PRN Reason: Pain, Severe (Pain Scale 7-10) Last Admin: 12/25/23 08:39 Dose: 2 mg Documented By: PAOLO Ondansetron HCl (Ondansetron Hcl 4 Mg/2 Ml Vial) 4 mg IVPUSH Q8H PRN PRN Reason: Nausea and Vomiting Last Admin: 12/22/23 22:39 Dose: 4 mg Documented By: BABITA Pharmacy Consult (Consult Rx Vancomycin Dosing) 1 each MISCELLANE DAILY PRN PRN Reason: Consult order Prochlorperazine Edisylate (Prochlorperazine Edisylate 10 Mg/2 Ml Vial) 10 mg IVPUSH Q6H PRN PRN Reason: Nausea and Vomiting Last Admin: 12/22/23 02:30 Dose: 10 mg Documented By: HILLARY Sodium Chloride (0.9 % Sodium Chloride Flush 3 Ml Syringe) 3 ml IVFLUSH QSHIFT [facility] Last Admin: 12/25/23 08:35 Dose: 3 ml Documented By: PAOLO Labs 12/22/23 07:47 12/25/23 05:43 Labs: Laboratory Results - last 24 hr 12/24/23 12/25/23 12/25/23 21:00 05:42 05:43 Hold Purple Top SEE NOTE Anion Gap 10 L Estim Creat Clear Calc 136.2 136.2 Estimated GFR > 60 > 60 Random Glucose 138 H Calcium 9.0 Random Vancomycin 14.0 L Assessment and Plan (1) Sepsis: Status: Acute (2) Pulmonary emboli: Status: Acute (3) DVT (deep venous thrombosis): Status: Acute (4) Cellulitis: Status: Acute Plan Pt is a 53-year-old male with a PMH significant for?opiate use disorder on Suboxone, polysubstance use disorder, mild intermittent asthma, anxiety, and depression who presents to the ED with multiple complaints, including excoriations and scabbing on right arm, and left leg and foot swelling, redness, and pain. Pt will be admitted to the hospital for treatment and further evaluation of left lower extremity DVT, pulmonary emboli, and left foot cellulitis. acute Pulmonary emboli On RA, no complaints CTA with small segmental and subsegmental PE to right upper, middle, and lower lobes, possible subsegmental PE to left lower lobe secondary to DVT in the left popliteal and gastrocnemius veins continue full dose Eliquis Analgesics for pain management Monitor on telemetry Sepsis 2 Left lower extremity cellulitis improving slowly Continue with vancomycin, started 12/21/2023 Follow Trough PHysical deconditioning PT rec STR Hypokalemia Follow BMP, supplement as necessary Elevated troponins Patient asymptomatic: Denies chest pain/pressure, palpitations Likely secondary to pulmonary emboli Monitor on telemetry Skin excoriations Patient with multiple areas pruritic superficial skin excoriations, worse on right upper extremity Negative HIV status Polysubstance use disorder Reports smoking crack and snorting heroin, last used 2-3 days ago Denies IVDU Given methadone 45 mg daily per Addiction medicine team Mild intermittent asthma Not in acute exacerbation Albuterol inhaler p.r.n. Full Code DVT Prophylaxis: Eliquis Pt will require a hospitalization overnight for treatment of?pulmonary emboli, DVT, and left foot cellulitis. Patient will require hospitalization for administration of IV antibiotics pending clinical improvement and placement to SNF Quality Stroke Does the patient have a stroke diagnosis?: No VTE Prior VTE?: No VTE Risk Level:: Medical - moderate - high VTE Device Contraindication: Treatment Not Indicated VTE Drug Contraindication: N/A - Med Ordered
[2023-12-25] MEDS: Ammonium Lactate 12 % Lotion 226 GM BOTTLE 1 APPL TOPICAL ×2 (11:01→20:48)
[2023-12-25] MEDS: vancomycin HCL 1,000 MG, vancomycin HCL 750 MG in 0.9 % Sodium Chloride 500 ML 267.5 MG IV (11:01)
[2023-12-25 15:20] VITALS: BP 130/82; PULSE 86; RESP 18; TEMP 35.4; O2SAT 95
[2023-12-25 19:57] VITALS: BP 124/74; PULSE 94; RESP 18; TEMP 36.7; O2SAT 94
[2023-12-25] MEDS: Melatonin 3 MG TABLET 6 MG PO (20:48)
[2023-12-25] MEDS: methADONE HCl 20 MG/2 ML ORAL.CONC 5 MG PO (20:48)
[2023-12-25 21:51] LABS: Vancomycin Random 12.9 mcg/mL (15-20)
[2023-12-25] MEDS: vancomycin HCL 1,000 MG, vancomycin HCL 750 MG in 0.9 % Sodium Chloride 500 ML 265.5 MG IV (23:25)
[2023-12-26] MEDS: Morphine Sulfate 2 MG/ML CARTRIDGE IVPUSH ×3 (02:21→15:01)
[2023-12-26 03:52] VITALS: BP 124/76; PULSE 92; RESP 18; TEMP 36.4; O2SAT 95
--- NOTE | 2023-12-26 05:43 | PC.NURSE ---
Pt endorsed constipation for 4 days, had BM x1 which is blood streaked, no further bleed noted after, Vitals WNL.
[2023-12-26 07:01] LABS: Hematocrit 36.7 % (42.0-52.0); Hemoglobin 11.9 g/dl (14.0-18.0); Mean Corpuscular HGB Conc 32.4 g/dl (31.0-36.0); Mean Corpuscular Volume 89.3 fL (80.0-98.0); Mean Platelet Volume 9.7 fL (9.4-12.4); Platelet Count 439 X10*3/uL (160-400); Red Blood Count 4.11 X10*6/uL (4.60-5.80); Red Cell Distribution Width 14.7 % (11.0-16.0); White Blood Count 10.8 X10*3/uL (4.8-10.8)
[2023-12-26 07:07] LABS: Anion Gap 13 (12-20); Blood Urea Nitrogen 11 mg/dL (9-16); Calcium 9.2 mg/dL (8.4-10.2); Carbon Dioxide 29 mmol/L (22-29); Chloride 99 mmol/L (96-108); Creatinine Clr Calc Pharmacy 134.3; Estimated Glomerular Filt Rate > 60; Glucose Random 116 mg/dL (60-115); Potassium 4.4 mmol/L (3.3-5.1); Sodium 137 mmol/L (135-145)
[2023-12-26 07:26] VITALS: BP 121/82; PULSE 81; RESP 16; TEMP 36.7; O2SAT 93
[2023-12-26] MEDS: 0.9 % Sodium Chloride Flush 3 ML SYRINGE IVFLUSH (08:30)
[2023-12-26] MEDS: Apixaban 5 MG TABLET 10 MG PO ×2 (08:30→19:14)
[2023-12-26] MEDS: methADONE HCl 20 MG/2 ML ORAL.CONC 45 MG PO (08:32)
[2023-12-26] MEDS: Ammonium Lactate 12 % Lotion 226 GM BOTTLE 1 APPL TOPICAL ×2 (08:34→19:15)
[2023-12-26] MEDS: vancomycin HCL 1,000 MG, vancomycin HCL 750 MG in 0.9 % Sodium Chloride 500 ML 265.5 MG IV ×2 (10:36→22:04)
--- NOTE | 2023-12-26 11:04 | MHC.RECOVRN ---
CM informed t/w pt will be transferring to [facility]. Pts referral sent to [facility].
--- NOTE | 2023-12-26 11:27 | HO.PM.IMPN ---
Subjective Subjective Date of Service: 12/26/23 Interval History: seen and evaluated this morning Pain improved, swelling decreased significantly having in LLE but able to ambulate better now no other events Physical Exam Vital Signs: Vital Signs: Last Vital Signs Temp 98.0 F 12/26/23 07:26 Pulse 81 12/26/23 07:26 Resp 16 12/26/23 07:26 BP 121/82 12/26/23 07:26 Pulse Ox 93 12/26/23 07:26 O2 Del Method Room Air 12/26/23 07:26 O2 Flow Rate 2 12/24/23 10:53 BMI result Body Mass Index 39.9 Const: Other: Constitutional : Awake, interactive, not in distress Neck : Normal inspection, Supple Cardiovascular : RRR, no JVP, no lower extremity edema Respiratory : good bilateral air entry, no crackles, wheezes or rhonchi Gastrointestinal: soft, lax, Normal bowel sounds, Non tender Skin : Warm, Dry, LLE foot with decreased erythema, swelling and tenderness , multiple areas of dry excoriations on legs, arms and chest. Neurological : Alert & oriented x3, No focal deficit Objective Data Active Medications Acetaminophen (Acetaminophen 325 Mg Tablet) 650 mg PO Q6H PRN PRN Reason: Pain, Mild (Pain Scale 1-3) Last Admin: 12/23/23 04:24 Dose: 650 mg Documented By: JULIOCESAR Albuterol Sulfate (Albuterol Sulfate (0.083%) 2.5 Mg/3 Ml Vial.Neb) 2.5 mg INHALE Q4H PRN PRN Reason: Shortness of Breath/Wheezing Last Admin: 12/22/23 17:27 Dose: 2.5 mg Documented By: MILA Apixaban (Apixaban 5 Mg Tablet) 10 mg PO BID HI Stop: 12/30/23 21:01 Last Admin: 12/26/23 08:30 Dose: 10 mg Documented By: DIAMANTE Benzocaine (Throat Lozenge, Medicated Lozenge) 1 lozenge MUCOUS MEM Q2H PRN PRN Reason: Sore Throat Benzonatate (Benzonatate 100 Mg Capsule) 100 mg PO TID PRN PRN Reason: Cough Docusate Sodium (Docusate Sodium 100 Mg Capsule) 100 mg PO DAILY PRN PRN Reason: Constipation Gabapentin (Gabapentin 100 Mg Capsule) 100 mg PO BID [facility] Vancomycin HCl 1,000 mg/Vancomycin HCl 750 mg/ Sodium Chloride 535 mls @ 267.5 mls/hr IV Q12H [facility] Last Admin: 12/26/23 10:36 Dose: 265.5 mls/hr Documented By: DIAMANTE Lactic Acid (Ammonium Lactate 12 % Lotion 226 Gm Bottle) 1 appl TOPICAL BID [facility]; Protocol Last Admin: 12/26/23 08:34 Dose: 1 appl Documented By: DIAMANTE Melatonin (Melatonin 3 Mg Tablet) 6 mg PO BEDTIME PRN PRN Reason: Insomnia Last Admin: 12/25/23 20:48 Dose: 6 mg Documented By: HOLLEY Methadone HCl (Methadone Hcl 20 Mg/2 Ml Oral.Conc) 45 mg PO DAILY@0800 [facility] Last Admin: 12/26/23 08:32 Dose: 45 mg Documented By: DIAMANTE Methadone HCl (Methadone Hcl 20 Mg/2 Ml Oral.Conc) 5 mg PO BEDTIME [facility] Last Admin: 12/25/23 20:48 Dose: 5 mg Documented By: HOLLEY Morphine Sulfate (Morphine Sulfate 2 Mg/Ml Cartridge) 2 mg IVPUSH Q4H PRN; Protocol PRN Reason: Pain, Severe (Pain Scale 7-10) Last Admin: 12/26/23 08:37 Dose: 2 mg Documented By: DIAMANTE Ondansetron HCl (Ondansetron Hcl 4 Mg/2 Ml Vial) 4 mg IVPUSH Q8H PRN PRN Reason: Nausea and Vomiting Last Admin: 12/22/23 22:39 Dose: 4 mg Documented By: BABITA Pharmacy Consult (Consult Rx Vancomycin Dosing) 1 each MISCELLANE DAILY PRN PRN Reason: Consult order Prochlorperazine Edisylate (Prochlorperazine Edisylate 10 Mg/2 Ml Vial) 10 mg IVPUSH Q6H PRN PRN Reason: Nausea and Vomiting Last Admin: 12/22/23 02:30 Dose: 10 mg Documented By: HILLARY Sodium Chloride (0.9 % Sodium Chloride Flush 3 Ml Syringe) 3 ml IVFLUSH QSHIFT [facility] Last Admin: 12/26/23 08:30 Dose: 3 ml Documented By: DIAMANTE Labs 12/26/23 05:28 12/26/23 05:28 Labs: Laboratory Results - last 24 hr 12/25/23 12/26/23 21:08 05:28 MCV 89.3 MCH 29.0 MCHC 32.4 RDW 14.7 Plt Count 439 H D MPV 9.7 Absolute Nucleated RBC 0.000 Nucleated RBC % (auto) 0.0 Anion Gap 13 Estim Creat Clear Calc 134.3 Estimated GFR > 60 Random Glucose 116 H Calcium 9.2 Random Vancomycin 12.9 L Microbiology Microbiology Results: Microbiology 12/21/23 08:56 Blood Culture - Final Blood - Venous No growth after 5 days. 12/21/23 08:57 Blood Culture - Final Blood - Venous No growth after 5 days. Assessment and Plan (1) Sepsis: Status: Acute (2) Pulmonary emboli: Status: Acute (3) DVT (deep venous thrombosis): Status: Acute (4) Cellulitis: Status: Acute Plan Pt is a 53-year-old male with a PMH significant for?opiate use disorder on Suboxone, polysubstance use disorder, mild intermittent asthma, anxiety, and depression who presents to the ED with multiple complaints, including excoriations and scabbing on right arm, and left leg and foot swelling, redness, and pain. Pt will be admitted to the hospital for treatment and further evaluation of left lower extremity DVT, pulmonary emboli, and left foot cellulitis. acute Pulmonary emboli On RA, no complaints CTA with small segmental and subsegmental PE to right upper, middle, and lower lobes, possible subsegmental PE to left lower lobe secondary to DVT in the left popliteal and gastrocnemius veins continue full dose Eliquis Analgesics for pain management Monitor on telemetry Sepsis 2/2 Left lower extremity cellulitis improving slowly Continue with vancomycin, started 12/21/2023 skin to r\o abscess Follow Trough PHysical deconditioning PT rec STR Hypokalemia Follow BMP, supplement as necessary Elevated troponins Patient asymptomatic: Denies chest pain/pressure, palpitations Likely secondary to pulmonary emboli Monitor on telemetry Skin excoriations Patient with multiple areas pruritic superficial skin excoriations, worse on right upper extremity Negative HIV status Polysubstance use disorder Reports smoking crack and snorting heroin, last used 2-3 days ago Denies IVDU Given methadone 45 mg daily per Addiction medicine team Mild intermittent asthma Not in acute exacerbation Albuterol inhaler p.r.n. Full Code DVT Prophylaxis: Ana Pt will require a hospitalization overnight for treatment of?pulmonary emboli, DVT, and left foot cellulitis. Patient will require hospitalization for administration of IV antibiotics pending clinical improvement and placement to [facility] Quality Stroke Does the patient have a stroke diagnosis?: No VTE Prior VTE?: No VTE Risk Level:: Medical - moderate - high VTE Device Contraindication: Treatment Not Indicated VTE Drug Contraindication: N/A - Med Ordered
[2023-12-26] MEDS: Gabapentin 100 MG CAPSULE PO ×2 (11:37→19:14)
--- NOTE | 2023-12-26 12:38 | MHC.CM.PN ---
Addendum entered by Silvia Conley RN 12/26/23 13:43: MDS submitted to [facility] via fax. Original Note: Per MD rounds patient awaiting [facility]. Plan to dc to STR at [facility] when medically cleared. MDS to be submitted. councilor to set up guest dosing w/ [facility].
[2023-12-26 15:09] VITALS: BP 122/81; PULSE 82; RESP 18; TEMP 36.6; O2SAT 95
[2023-12-26 15:17] VITALS: BP 122/81; PULSE 82; O2SAT 95
[2023-12-26] MEDS: oxyCODONE HCl Immed Release 5 MG TABLET PO ×2 (15:38→19:14)
[2023-12-26] MEDS: Acetaminophen 325 MG TABLET 650 MG PO (15:38)
[2023-12-26] MEDS: methADONE HCl 20 MG/2 ML ORAL.CONC 5 MG PO (19:15)
[2023-12-26 19:45] VITALS: BP 122/72; PULSE 92; RESP 18; TEMP 36.4; O2SAT 93
[2023-12-26 21:50] LABS: Vancomycin Random 13.4 mcg/mL (15-20)
--- NOTE | 2023-12-26 22:01 | HE.PHANOTE ---
Re: Roe Renal function continues to slowly decline. Trough returned at 13.4 mg/L. Continue current dose of 1,750 mg Q12H with predicted AUC of 471 mL/hr, and predicted trough of 11.9 mg/L. Next random trough to be drawn 12/26 at 2100.
[2023-12-27] MEDS: Melatonin 3 MG TABLET 6 MG PO (00:22)
[2023-12-27] MEDS: oxyCODONE HCl Immed Release 5 MG TABLET PO ×2 (00:23→13:30)
[2023-12-27] MEDS: 0.9 % Sodium Chloride Flush 3 ML SYRINGE IVFLUSH ×2 (00:27→08:37)
[2023-12-27 03:09] VITALS: BP 143/90; PULSE 88; RESP 18; TEMP 36.5; O2SAT 97
[2023-12-27] MEDS: Morphine Sulfate 2 MG/ML CARTRIDGE IVPUSH ×2 (03:44→08:43)
[2023-12-27 06:24] LABS: Creatinine Clr Calc Pharmacy 129.1; Estimated Glomerular Filt Rate > 60
[2023-12-27 07:27] VITALS: BP 146/76; PULSE 86; RESP 20; TEMP 36.7; O2SAT 95
[2023-12-27] MEDS: Apixaban 5 MG TABLET 10 MG PO (08:36)
[2023-12-27] MEDS: Gabapentin 100 MG CAPSULE PO (08:36)
[2023-12-27] MEDS: methADONE HCl 20 MG/2 ML ORAL.CONC 45 MG PO (08:37)
[2023-12-27] MEDS: Ammonium Lactate 12 % Lotion 226 GM BOTTLE 1 APPL TOPICAL (08:39)
[2023-12-27 08:43] VITALS: RESP 18
[2023-12-27 09:53] VITALS: BP 146/76; PULSE 86; O2SAT 95
--- NOTE | 2023-12-27 10:30 | PM.DS ---
DS: Providers Provider Date of Service: 12/27/23 Date of admission: 12/21/23 13:36 Primary care physician: [facility] Consults: 12/21/23 09:37 Consult to Cardiology Stat Consulting Provider: [facility] Reason for consultation: abnormal EKG, troponin 105 Has provider been notified: Yes 12/21/23 11:54 Addiction Medicine Stat Consulting Provider: Addiction Covering Reason for consultation: opiate withdrawal Has provider been notified: Yes DS: Diagnosis Discharge Diagnosis (1) Sepsis: Status: Acute (2) Pulmonary emboli: Status: Acute (3) DVT (deep venous thrombosis): Status: Acute (4) Cellulitis: Status: Acute DS: Summary Hospital Course Hospital Course: Admission note Pt is a 53-year-old male with a PMH significant for?opiate use disorder on Suboxone, polysubstance use disorder, mild intermittent asthma, anxiety, and depression who presents to the ED with multiple complaints, including excoriations and scabbing on right arm, and left leg and foot swelling, redness, and pain. Pt states noticed left lower extremity pain and swelling 2-3 days ago. Foot has been painful and difficult to walk on. Says has been experiencing subjective fever, chills, and nausea but no vomiting. Chronic SOB for the past year, worse the past few days. Patient has a long history of polysubstance use disorder, says [place] heroin smokes crack, but adamantly denies IVDU. Reports sores on right arm began approximately 1 week ago. Started out as ?blisters? that patient began itching and eventually turned into larger scabbed areas. Also has smaller, similar sores on legs, feet, and chest. States has had 3-4 similar episodes in the past. Sores/scabs can appear anywhere on body, including face. Denies chest pain/pressure, palpiations. In the ED pt was tachycardic up to 91, vitals otherwise WNL, satting at 92% on RA. Labs were significant for leukocytosis 15.3, potassium 2.9, bilirubin 5, ALT 78, initial troponin 105.7 with repeat 74.8. Otherwise grossly unremarkable and WNL for patient. Tested negative for influenza, RSV, COVID. CXR showed moderate bi basilar patchy opacities which may represent atelectasis and/or pneumonia. X-ray of left foot found distal dorsal soft tissue swelling but no acute bony pathology. Venous duplex of left lower extremity found DVT demonstrated in the left popliteal and gastrocnemius veins. CTA showed small segmental and subsegmental PE to the right upper, middle, and lower lobes, can not exclude tiny subsegmental pulmonary embolus to left lower lobe. No evidence of right heart strain.. EKG demonstrated normal sinus rhythm but T-wave inversions in inferior and anterior leads, new from previous on 03/15/2020. Pt was treated with albuterol, methadone, magnesium, ondansetron, aspirin, potassium chloride IV and p.o., morphine, and ceftriaxone and vancomycin. Pt will be admitted to the hospital for treatment and further evaluation of left lower extremity DVT, pulmonary emboli, and left foot cellulitis. Hospital course # acute Pulmonary emboli On RA, no complaints. CTA with small segmental and subsegmental PE to right upper, middle, and lower lobes, possible subsegmental PE to left lower lobe secondary to DVT in the left popliteal and gastrocnemius veins. Started on Eliquis full dose amd Analgesics for pain management with fair response as he denied any dyspnea or SOB. # Sepsis secondary to Left lower extremity cellultis. improving slowly during hospital stay with Vancomycin, started 12/21/2023. US skin did not show any collection or abscess. To be discharged on Doxycycline and Augmentin. Follow Trough # PHysical deconditioning PT rec STR # Hypokalemia, corrected # Elevated troponins, asymptomatic: Denies chest pain/pressure, Likely secondary to pulmonary emboli. Monitored on telemetry # Skin excoriations. Patient with multiple areas pruritic superficial skin excoriations, worse on right upper extremity. Negative HIV status. Moisturizing cream. # Polysubstance use disorder. Reports smoking crack and snorting heroin, last used 2-3 days [employer]. Increased methadone to 45 mg daily and 5 mg bedtime per Addiction medicine team Discharge Plan Finish 7 more doses of 10 mg Eliquis bid Then start Eliquis 5 mg twice daily for 6 months To follow with PCP for further evaluation for the clot Continue Doxycycline and Augmentin for 1 more week keep leg elevated increase physical activity as tolerated The patient will likely need less than 30 days of SNF stay. Time Attestation Discharge Coordination Time (in mins): 38 Quality: Safe Use of Opioids Does Pt have an Active Cancer Diagnosis on the Problem List?: No Quality: Stroke Does the patient have a stroke diagnosis?: No Physical Exam Vital Signs: Vital Signs: Last Vital Signs Temp 98.1 F 12/27/23 07:27 Pulse 86 12/27/23 09:53 Resp 18 12/27/23 08:43 BP 146/76 H 12/27/23 09:53 Pulse Ox 95 12/27/23 09:53 O2 Del Method Room Air 12/27/23 07:27 O2 Flow Rate 2 12/24/23 10:53 BMI result Body Mass Index 39.9 Const: Other: Constitutional : Awake, interactive, not in distress Neck : Normal inspection, Supple Cardiovascular : RRR, no JVP, no lower extremity edema Respiratory : good bilateral air entry, no crackles, wheezes or rhonchi Gastrointestinal: soft, lax, Normal bowel sounds, Non tender Skin : Warm, Dry, LLE foot with decreased erythema, swelling and tenderness , multiple areas of dry excoriations on legs, arms and chest. Neurological : Alert & oriented x3, No focal deficit DS: Data Data Completed and Pending Completed studies during hospitalization [Text1]: Procedures Detoxification Services for Substance Abuse Treatment (01/03/22) Labs on day of discharge: Laboratory Results - last 24 hr 12/26/23 12/27/23 21:02 05:40 Creatinine 0.77 Estim Creat Clear Calc 129.1 Estimated GFR > 60 Random Vancomycin 13.4 L Imaging Chest x-ray: Radiologist's impression: ITS Impressions Foot X-Ray 12/21/23 08:10 IMPRESSION: Distal dorsal soft tissue swelling. No acute bony pathology. Chest X-Ray 12/21/23 09:44 IMPRESSION: Moderate patchy bibasilar opacities may represent atelectasis and/or pneumonia. This study was presented today December 21, 2023 for interpretation. Stat results provided at this time as requested by referring provider. Venous Duplex 12/21/23 11:43 IMPRESSION: * Positive DVT. * DVT demonstrated in the left popliteal and gastrocnemius veins. * Mildly prominent lymph nodes in the inguinal regions bilaterally measure up to 3.1 cm on the left and 3.1 cm on the right. Uncertain etiology. Please correlate with the clinical exam. * Technologist indicates that the result has been discussed with the provider by technologist at 11:45 AM. (Referring physician staff is being called, by physician staff assistance, to be alerted of the above critical findings and recommendations.) TC 12/21/2023 12:26 PM Chest CTA 12/21/23 13:38 IMPRESSION: Small segmental and subsegmental pulmonary emboli to the right upper, middle and lower lobes. Cannot exclude a tiny subsegmental pulmonary embolus to the left lower lobe. No evidence of right heart strain. VTE: positive. This critical result was discussed with Tiffani Alexandra M.D. at 1512 on 12/21/2023 and it was ascertained that the content and urgency of the report was understood at the time of direct communication. Extremity Ultrasound 12/26/23 12:20 IMPRESSION: Soft tissue edema without discrete fluid collection. Discharge Plan Discharge Anticipated Discharge Date/Time: 12/27/23 10:31 Patient Disposition: er [facility] Discharge Diagnosis: Cellulitis Deep vein thrombosis Referrals: [facility] [Outside] - 1 Day (Short term rehab) Center,[facility] [Primary Care Provider] - 1 Week Discharge Medications: New ammonium lactate 12 % Lotion 1 appl topical BID Qty: 225 0RF Protocol: Apply to: Apply to: upper and lower extremities gabapentin 100 mg Capsule 100 mg PO BID Qty: 60 0RF Eliquis 5 mg Tablet 10 mg PO BID Qty: 14 0RF doxycycline monohydrate 100 mg capsule 100 mg PO BID Qty: 14 0RF Eliquis 5 mg tablet 5 mg PO BID Qty: 180 1RF amoxicillin-pot clavulanate 875-125 mg tablet 1 tab PO BID Qty: 14 0RF Continued methadone [Methadone Intensol] 10 mg/mL Concentrate PO DAILY Discharge Orders: Discharge Order (Routine); Ordered 12/27/23 Ordered By: Zana Shen Diet: Advance to usual diet Activity on Discharge: As tolerated Stand Alone Forms: Patient Portal Discharge page Print Language: Kinyarwanda Care Plan Goals: Read below Health Concerns: Read below Plan of Treatment: Read below Assessment: Finish 7 more doses of 10 mg Eliquis bid Then start Eliquis 5 mg twice daily for 6 months To follow with PCP for further evaluation for the clot Continue Doxycycline and Augmentin for 1 more week keep leg elevated increase physical activity as tolerated
[2023-12-27] MEDS: vancomycin HCL 1,000 MG, vancomycin HCL 750 MG in 0.9 % Sodium Chloride 500 ML 267.5 MG IV (11:21)
[2023-12-27] MEDS: Acetaminophen 325 MG TABLET 650 MG PO (11:24)
--- NOTE | 2023-12-27 11:25 | MHC.CM.PN ---
Per patient is medically cleared for dc to [facility]. S transportation scheduled for 1500 to [facility]. Per Ambar at [facility] guest dosing is all set. Faxed dc summary and last dose summary. Per Meli at [facility] approved. Faxed dc summary w/ < 30 per request. Patient, RN and aware.
--- NOTE | 2023-12-27 11:36 | P.CDIM_ITS ---
PROVIDER RESPONSE TEXT: To clarify, the appropriate diagnosis supported by the clinical indicators: Sepsis is/was present QUERY TEXT: PHYSICIAN'S DOCUMENTATION REQUEST Date of Query: 12/23/2023 09:18 AM EDT Patient Name: Edin Delgadillo Admit Date: 12/21/2023 Dear Zana Shen, A review of the medical record indicates additional documentation may be needed. Please review below and update the documentation accordingly. Clinical indicators: ED: Clinical impression - Cellulitis left lower extremity H&P: Patient says she has had fever and chills, painful foot, cellulitis. WBC 15.3 TEMP 98.7 LA 1.5 RR 16 HR 91 - Labs otherwise grossly unremarkable and WNL for patient. Pt met Sepsis criteria with tachycardia, Leukocytosis Vancomycin Progress note 12/21 - Sepsis 2/2 left lower extremity cellulitis Sepsis Systemic manifestations of infection, with 2 or more SIRS criteria which include: Fever > 100.4?F or hypothermia < 96.8?F Leukocytosis - WBC > 12,000 or leukopenia, WBC < 4,000, or > 10% bands Tachycardia- > 90 beats/minute Tachypnea- RR > 20 breaths/minute or PaCO2 < 32mmHg Based on the above information and the recognized standard for sepsis, could you please clarify if th is diagnoses is still accurate and reflective of the patient's condition to ensure quality of the medical record. Sepsis is/was present After study Sepsis has been ruled out SIRS Other (explain) Clinically unable to determine (explain) Thank you, Estefania Mariano, CCS, CDIS Use of terms such as suspected, likely, concern for, or probable (associated with a specific diagnosi s that is being evaluated, monitored, or treated as if it exists) are acceptable and can be coded in the inpatient se tting, when documented at the time of discharge. Please use your independent medical judgment in providing your response. THIS QUERY IS PART OF THE PERMANENT MEDICAL RECORD
--- NOTE | 2023-12-27 11:36 | P.CDIM_ITS ---
PROVIDER RESPONSE TEXT: To clarify, the appropriate diagnosis supported by the clinical indicators: Acute pulmonary embolism without acute cor pulmonale QUERY TEXT: PHYSICIAN'S DOCUMENTATION REQUEST Date of Query: 12/23/2023 07:51 AM EDT Patient Name: Edin Delgadillo Admit Date: 12/21/2023 Dear Zana Shen, A review of the medical record indicates additional documentation may be needed. Please review below and update the documentation accordingly. Clinical Indicators: H&P 12/20 - Assessment and plan: Acute pulmonary embolism with acute cor pulmonale Progress note 12/20 - Acute pulmonary emboli CTA with small segmental and subsegmental PE to right upper, middle, and lower lobes, possible subseg mental PE to the left lower lobe. Lovenox 105mg IV q12h Based on the above, consistency of a noted diagnosis within the medical record: Acute pulmonary embolism with acute cor pulmonale Acute pulmonary embolism without acute cor pulmonale Other (explain) Clinically unable to determine (explain) Thank you, Estefania Mariano, CCS, CDIS Use of terms such as suspected, likely, concern for, or probable (associated with a specific diagnosi s that is being evaluated, monitored, or treated as if it exists) are acceptable and can be coded in the inpatient se tting, when documented at the time of discharge. Please use your independent medical judgment in providing your response. THIS QUERY IS PART OF THE PERMANENT MEDICAL RECORD
[2023-12-27 15:40] VITALS: BP 138/84; PULSE 82; RESP 18; TEMP 36.6; O2SAT 92
== END 2023-12-27 16:56 | disposition skilled nursing facility (03) | DRG 720 ==
LOC: HO.ED 10:02 → HO.EDOVER 13:49 → HO.IMC 12-22 06:15 → HO.S3 12-24 10:35
PROVIDERS: Admitting Provider Student in an Organized Health Care Education/Training Program; Emergency Provider Emergency Medicine; Visit Provider Student in an Organized Health Care Education/Training Program
DX: A41.9 Sepsis, unspecified organism (principal); I26.99 Other pulmonary embolism without acute cor pulmonale; I26.94 Multiple subsegmental thrombotic pulmonary emboli without acute cor pulmonale; I82.432 Acute embolism and thrombosis of left popliteal vein; L03.116 Cellulitis of left lower limb; E87.6 Hypokalemia; F19.90 Other psychoactive substance use, unspecified, uncomplicated; F11.20 Opioid dependence, uncomplicated; I82.462 Acute embolism and thrombosis of left calf muscular vein; J45.20 Mild intermittent asthma, uncomplicated; F17.210 Nicotine dependence, cigarettes, uncomplicated; Z71.6 Tobacco abuse counseling; Z20.822 Contact with and (suspected) exposure to COVID-19; Z79.899 Other long term (current) drug therapy
CPT/HCPCS: 0241U; 36415; 71045; 71275; 73630; 76882; 80048; 80076; 80202; 82550; 82565; 83605; 83735; 83880; 84484; 85025; 85027; 85610; 85730; 87040; 87389; 93005; 93306; 93970; 94640; 97116; 97162; 99285; C9113; J0696; J0737; J1170; J1650; J2270; J2405; J3370; J3371; J3475; J3480; Q9957; Q9967

== ENCOUNTER → 2023-12-21 13:36 | Outpatient (BNV) | payer OTHER, SELFPAY | PROVIDERS: Admitting Provider Student in an Organized Health Care Education/Training Program; Emergency Provider Emergency Medicine; Visit Provider Nurse Practitioner Psychiatric/Mental Health | DX: F11.90 Opioid use, unspecified, uncomplicated (principal) | CPT/HCPCS: 99221; 99499 ==

== ENCOUNTER → 2023-12-21 13:36 | Outpatient (BNV) | payer MEDICAID, SELFPAY | PROVIDERS: Admitting Provider Student in an Organized Health Care Education/Training Program; Emergency Provider Emergency Medicine; Visit Provider Student in an Organized Health Care Education/Training Program | DX: A41.9 Sepsis, unspecified organism (principal); I26.09 Other pulmonary embolism with acute cor pulmonale; I82.432 Acute embolism and thrombosis of left popliteal vein; L03.116 Cellulitis of left lower limb | CPT/HCPCS: 99223; 99232; 99233; 99239 ==

== ENCOUNTER 2024-04-22 02:30 | Emergency (ER) | payer MEDICAID, SELFPAY ==
[2024-04-22 02:35] VITALS: BP 166/78; PULSE 111; O2SAT 95; BMI 27.4
[2024-04-22 02:39] VITALS: BP 145/82; PULSE 104; RESP 17; TEMP 36.8; O2SAT 94
[2024-04-22] MEDS: Doxycycline Monohydrate 100 MG CAPSULE PO (03:37)
[2024-04-22] MEDS: Tobramycin Sulfate 0.3% Sol Op 5 ML BTL 2 DROP EYE-LEFT (03:37)
--- NOTE | 2024-04-22 03:52 | ED_ITS ---
HPI - General Adult General Chief complaint: General Medical Stated complaint: rt hand swell Time Seen by Provider: 04/22/24 03:07 Source: patient Mode of arrival: ambulatory Limitations: no limitations History of Present Illness ED Provider: carmen MORAN narrative: Patient is homeless with multiple complaints asking for antibiotics for questionable spider bites and redness of the left eye patient has used heroin which he inhales also complaining of been congested. No fever no chills no IV drug use lately Related Data Home Medications ?Medication ?Instructions ?Recorded ?Confirmed methadone 10 mg/mL oral mg PO DAILY 12/21/23 concentrate (Methadone Intensol) Previous Rx's ?Medication ?Instructions ?Recorded ammonium lactate 12 % lotion 1 appl topical BID #225 grams 12/27/23 amoxicillin 875 mg-potassium 1 tab PO BID #14 tabs 12/27/23 clavulanate 125 mg tablet apixaban 5 mg tablet (Eliquis) 5 mg PO BID #180 tabs 12/27/23 apixaban 5 mg tablet (Eliquis) 10 mg (2 x 5 mg) PO BID #14 tabs 12/27/23 doxycycline monohydrate 100 mg 100 mg PO BID #14 caps 12/27/23 capsule gabapentin 100 mg capsule 100 mg PO BID #60 caps 12/27/23 doxycycline hyclate 100 mg tablet 100 mg PO BID #20 tabs 04/22/24 tobramycin 0.3 % eye drops 2 drp ophthalmic-Left Q4H #5 mL 04/22/24 Allergies Allergy/AdvReac Type Severity Reaction Status Date / Time No Known Allergies Allergy Verified 04/22/24 02:36 [No Known Allergies*] Review of Systems Review of Systems: Yes all other systems are reviewed and are negative PMFSH Past Medical History Medical History Mild intermittent asthma Opioid use disorder Anxiety Depression Social History Social History Household Members: None Housing: Homeless Do you presently have visiting nurse or other home services: No Patient Tobacco Use Status: Current everyday Tobacco user Tobacco use type: Cigarette Cigarettes Per Day: 6 Substance Use Type: Crack/Cocaine and Heroin Advance Directives: Yes Advance Directives on File: Yes Advance Directives Date on File: 12/28/23 service: No Physical Exam ED Vital Signs: Vital Signs - 24 hr 04/22/24 02:39 Temperature 98.2 F Pulse Rate 104 H Respiratory Rate 17 Blood Pressure 145/82 H Pulse Oximetry 94 Oxygen Delivery Method Room Air BMI result Body Mass Index 27.4 Appearance: Alert. Oriented X3. No acute distress. Eyes: Injected left conjunctiva no foreign body seen ENT: Pharynx normal. Oral Mucosa moist Neck: Normal inspection. Neck supple. CVS: Normal heart rate and rhythm. Pulses normal. Respiratory: No respiratory distress. Equal air entry bilateral, no wheezing/rales/rhonchi Abdomen: Soft and nontender. Bowel sounds are present, Skin: Skin warm and dry. Normal skin color. Normal skin turgor. Extremities: No lower extremity edema. No calf tenderness mild erythematous rashes no clear-cut signs of insect bite Neuro: Oriented X 3. Medications Administered Discontinued Medications Generic Name Dose Route Start Last Admin Trade Name Freq PRN Reason Stop Dose Admin Doxycycline Monohydrate 100 mg 04/22/24 03:25 04/22/24 03:37 Doxycycline Monohydrate 100 Mg Capsule PO 04/22/24 03:26 100 mg ONCE ONE Administration Tobramycin Sulfate 2 drop 04/22/24 03:25 04/22/24 03:37 Tobramycin Sulfate 0.3% Aleshia Op 5 Ml Btl EYE-LEFT 04/22/24 03:26 2 drop ONCE ONE Administration Discharge Plan Discharge Clinical Impression: Conjunctivitis, Insect bite Patient Disposition: Home, Self-Care Instructions: Insect Bite or Sting (ED), Conjunctivitis (ED) Additional Instructions: Use eyedrops as prescribed antibiotic twice daily for 10 days Avoid using drugs stay clean Prescriptions: New doxycycline hyclate 100 mg tablet 100 mg PO BID Qty: 20 0RF tobramycin 0.3 % drops 2 drp ophthalmic-Left Q4H Qty: 5 0RF No Action methadone [Methadone Intensol] 10 mg/mL Concentrate PO DAILY ammonium lactate 12 % Lotion 1 appl topical BID Qty: 225 0RF Protocol: Apply to: Apply to: upper and lower extremities gabapentin 100 mg Capsule 100 mg PO BID Qty: 60 0RF Eliquis 5 mg Tablet 10 mg PO BID Qty: 14 0RF doxycycline monohydrate 100 mg capsule 100 mg PO BID Qty: 14 0RF Eliquis 5 mg tablet 5 mg PO BID Qty: 180 1RF amoxicillin-pot clavulanate 875-125 mg tablet 1 tab PO BID Qty: 14 0RF Print Language: [place]ian
[2024-04-22 04:05] LABS: COVID-19 Test Negative (Negative); IDNOW Serial# 152EDE1D
--- NOTE | 2024-04-22 04:17 | PC.NURSE ---
pt changed over by security as pt reports drug use approx 1 hr ago. pt is axox4 speaking full clear sentences. bilat pupils pinpoint. pt denies si/hi. reports bit by spider however no bites/areas of redness/swelling noted. pt has L eye redness, reports spider also bit his L. eye upon questioning. pt ambulates with steady gait.
[2024-04-22 06:48] VITALS: BP 145/82; PULSE 104; RESP 17; TEMP 36.8; O2SAT 94
== END 2024-04-22 06:49 | disposition home or self-care (01) ==
PROVIDERS: Emergency Provider Internal Medicine
DX: S60.561A Insect bite (nonvenomous) of right hand, initial encounter (principal); L03.113 Cellulitis of right upper limb; H10.89 Other conjunctivitis; F11.10 Opioid abuse, uncomplicated; W57.XXXA Bitten or stung by nonvenomous insect and other nonvenomous arthropods, initial encounter; Y93.89 Activity, other specified; Y92.89 Other specified places as the place of occurrence of the external cause; Y99.8 Other external cause status; Z11.52 Encounter for screening for COVID-19; Z59.00 Homelessness unspecified; Z79.899 Other long term (current) drug therapy
CPT/HCPCS: 87635; 99282; 99283

== ENCOUNTER 2025-04-11 10:41 | Emergency (ER) | payer MEDICAID, SELFPAY ==
[2025-04-11] VITALS (29 sets, daily range): BP systolic 119–165; BP diastolic 67–100; PULSE 45–72; RESP 16–49; TEMP 35.1–36.6; O2SAT 87–99; BMI 23.5
--- NOTE | ~2025-04-11 | XR_ITS ---
EXAMINATION: XR CHEST 1 VIEW HISTORY: overdose, hypoxia COMPARISON: Comparison is made with the prior examination dated 12/21/2023. FINDINGS: A single AP portable view of the chest performed at 6:45 AM is submitted. There are patchy airspace opacities in both lower lung zones, consistent with atelectasis or pneumonia. There is no pleural effusion, pneumothorax, or pulmonary vascular congestion. The heart is normal in size. The bones are intact. XR/XR chest 1V IMPRESSION: Bibasilar atelectasis versus pneumonia. Electronically signed by: Jamarcus Buchanan MD 04/12/2025 08:01 AM EDT
--- NOTE | 2025-04-11 10:49 | ED_ITS ---
HPI - General Adult General Chief complaint: Overdose Stated complaint: OD, NARCAN, AWAKE, CONFUSED Time Seen by Provider: 04/11/25 10:47 Source: patient and EMS Mode of arrival: EMS Limitations: altered mental status History of Present Illness ED Provider: Mahnaz Chaudhary PA-C HPI narrative: Patient is a 54 year old assigned male at with a history of heroin use presenting to the emergency department today after an overdose. EMS states that the patient was found in the stoop of a business on [address] in [place] today and was given narcan and became some what more responsive.Patient responsive to verbal stimuli and states that he did use heroin today but would not answer any other questions. Related Data Home Medications ?Medication ?Instructions ?Recorded ?Confirmed methadone 10 mg/mL oral mg PO DAILY 12/21/23 concentrate (Methadone Intensol) Previous Rx's ?Medication ?Instructions ?Recorded ammonium lactate 12 % lotion 1 appl topical BID #225 g torsten 12/27/23 amoxicillin 875 mg-potassium 1 tab PO BID #14 tabs clavulanate 125 mg tablet apixaban 5 mg tablet (Eliquis) 5 mg PO BID #180 tabs 0 12/27/23 apixaban 5 mg tablet (Eliquis) 10 mg (2 x 5 mg) PO BID #14 tabs 12/27/23 doxycycline monohydrate 100 mg 100 mg PO BID #14 caps 12/27/23 capsule gabapentin 100 mg capsule 100 mg PO BID #60 caps 12/26 doxycycline hyclate 100 mg tablet 100 mg PO BID #20 ta bs 04/22/24 tobramycin 0.3 % eye drops 2 drp ophthalmic-Left Q4H # 5 mL 04/22/24 erythromycin 5 mg/gram (0.5 %) eye 0.5 inch ophthalmic (eye) TID 7 04/12/25 ointment days #3.5 grams Allergies Allergy/AdvReac Type Severity Reaction Status Date / Time Unable to Assess Allergy Unverified 04/11/25 11:23 Review of Systems 2 Review of Systems: Yes Unobtainable due to mental status Constitutional: Constitutional: Reports as per HPI Eyes: Eyes: Reports as per HPI ENT: Reports as per HPI Cardiovascular: Cardiovascular: Reports as per HPI Respiratory: Respiratory: Reports as per HPI Gastrointestinal: Gastrointestinal: Reports as per HPI Genitourinary: Genitourinary: Reports as per HPI Musculoskeletal: Musculoskeletal: Reports as per HPI Integumentary/Breasts: Skin/Breast: Reports as per HPI Neurologic: Reports as per HPI Psychiatric: Psychiatric: Reports as per HPI Endocrine: Endocrine: Reports as per HPI Hematologic/Lymphatic: Hematologic/Lymphatic: Reports as per HPI Allergic/Immunologic: Allergic/Immunologic: Reports as per HPI [facility] Past Medical History Attestation statement: The following information was validated with the patient. Source: old records reviewed and nursing notes reviewed Medical History Mild intermittent asthma Opioid use disorder Anxiety Depression Social History Social History Household Members: None Housing: Homeless Do you presently have visiting nurse or other home services: No Unable to assess alcohol history related to: Unable to respond and Unknown Patient Tobacco Use Status: Current everyday Tobacco user Tobacco use type: Cigarette Cigarettes Per Day: 6 Use of substances other than those prescribed or required for medical reasons: Unable to respond Substance Use Type: Crack/Cocaine and Heroin Advance Directives: Yes Advance Directives on File: Yes Advance Directives Date on File: 12/28/23 service: No Physical Exam ED Vital Signs: Vital Signs - 24 hr 04/11/25 15:15 04/11/25 15:20 04/11/25 15:56 Temperature 97 F Pulse Rate 57 52 45 L Respiratory Rate 26 H 22 H 16 Blood Pressure 141/71 H 149/89 H 154/84 H Pulse Oximetry 97 98 99 Oxygen Delivery Method Oxymask Oxymask Oxymask Oxygen Flow Rate 10 10 10 04/11/25 16:20 04/11/25 16:45 04/11/25 17:30 Temperature Pulse Rate 46 L 45 L 48 L Respiratory Rate 17 18 18 Blood Pressure 149/89 H 154/85 H 161/91 H Pulse Oximetry 99 99 99 Oxygen Delivery Method Oxymask Oxymask Oxymask Oxygen Flow Rate 10 10 10 04/11/25 18:15 04/11/25 19:00 04/11/25 20:00 Temperature 97.5 F 97.2 F Pulse Rate 45 L 55 63 Respiratory Rate 17 18 19 Blood Pressure 150/87 H 120/67 144/80 H Pulse Oximetry 99 99 99 Oxygen Delivery Method Oxymask Oxymask Oxymask Oxygen Flow Rate 10 10 10 04/11/25 21:00 04/12/25 00:13 04/12/25 02:33 Temperature 98.6 F 99.3 F Pulse Rate 62 61 67 Respiratory Rate 17 17 19 Blood Pressure 119/72 157/65 H 119/62 Pulse Oximetry 98 98 95 Oxygen Delivery Method Oxymask Oxymask Oxymask Oxygen Flow Rate 7 2 2 04/12/25 03:53 04/12/25 03:53 04/12/25 06:00 Temperature Pulse Rate Respiratory Rate Blood Pressure Pulse Oximetry 85 L 92 95 Oxygen Delivery Method Room Air Oxymask Oxymask Oxygen Flow Rate 5 5 04/12/25 06:11 04/12/25 06:57 04/12/25 07:08 Temperature 99.7 F Pulse Rate 70 72 Respiratory Rate 16 Blood Pressure 169/85 H Pulse Oximetry 96 95 94 Oxygen Delivery Method Oxymask Room Air Room Air Oxygen Flow Rate 04/12/25 12:11 Temperature 100.6 F H Pulse Rate 88 Respiratory Rate 20 Blood Pressure 145/78 H Pulse Oximetry 96 Oxygen Delivery Method Room Air Oxygen Flow Rate BMI result Body Mass Index 23.5 Const Orientation/consciousness: oriented to person HENMT Head: Yes normal to inspection Ears: hearing grossly normal bilaterally and external ears normal General nose exam: Normal external nose present, no nasal discharge noted and no epistaxis Face and sinus: Yes other (abrasion to the right ear - no active bleeding) Mouth: Normal oral and palatal mucosa present, no drooling and no muffled voice Eyes General: appearance normal, both eyes and all related structures Periorbital: periorbital findings normal Eyelids: Yes eyelids normal Conjunctivae: conjunctivae normal Pupils: Equal, round and reactive pupils present EOM: EOMs intact bilaterally Neck Neck: Yes normal visual inspection, Yes full ROM and Yes no lymphadenopathy Resp Effort & Inspection: normal respiratory effort and able to speak in complete sentences Neuro General: oriented to person, moves all extremities and CN's II-XI intact bilaterally Cranial nerves: Yes Equal, round and reactive pupils present Cognition (Neuro): normal cognition Extrem Other: spastic motions General: Yes full ROM and Yes capillary refill normal Psych Other: agitation Course Course Course Narrative: Date: 04/12/25 Provider: Tre Nino MD 07:08 Patient in physician observation for psychiatric evaluation/recovery team evaluation for drug overdose and received Narcan.? Patient was initially agitated and required chemical restraint with Valium, Benadryl and Haldol IM. CBC, CMP (elevated glucose 188, elevated AST 40, elevated CRP 1.26), chest x-ray unremarkable. CT head and cervical spine is pending. No acute events reported overnight. No current complaints. VS stable.? Will order SUDE evaluation. 15:04 Time: 15:04 Date: 04/12/25 Provider: Tre Nino MD Physician observation ended at 15:04 hours. The patient refused CT scan therefore this test was canceled. Patient was seen by our recovery team nurse practitioner, Neela Oneil who will refer the patient to the [facility] [place] [facility] for evaluation of methadone treatment for his opiate addiction. Patient does have bilateral injected sclera and may have conjunctivitis therefore he was treated with a erythromycin ointment in both eyes and was advised to apply erythromycin ointment 3 times a day for 7 days. He does not wear contact lenses. Patient was given printed and verbal instructions and discharged home. Patient was discharged home with intranasal Narcan rescue pack Medications Administered Discontinued Medications Generic Name Dose Route Start Last Admin Trade Name Freq PRN Reason Stop Dose Admin Diazepam 5 mg 04/11/25 13:39 04/11/25 13:49 Diazepam 10 Mg/2 Ml Cartridge IVPUSH 04/11/25 13:40 5 mg STAT STA Administration Diphenhydramine HCl 50 mg 04/11/25 11:15 04/11/25 11:30 Diphenhydramine Hcl 50 Mg/Ml Vial IVPUSH 04/11/25 11:16 50 mg ONCE ONE Administration Haloperidol Lactate 5 mg 04/11/25 12:07 04/11/25 12:13 Haloperidol Lactate 5 Mg/Ml Vial IM 04/11/25 12:08 5 mg ONCE ONE Administration Sodium Chloride 1,000 mls @ 999 mls/hr 04/11/25 11:30 04/11/25 12:31 Ns IV 04/11/25 12:30 Infused .Q1H1M HI Infusion Methadone HCl 20 mg 04/12/25 12:36 04/12/25 12:51 Methadone Hcl 20 Mg/2 Ml Oral.Conc PO 04/12/25 12:37 20 mg ONCE ONE Administration Methadone HCl 20 mg 04/12/25 13:45 04/12/25 14:46 Methadone Hcl 20 Mg/2 Ml Oral.Conc PO 04/12/25 13:46 20 mg ONCE ONE Administration Midazolam HCl 5 mg 04/11/25 11:00 04/11/25 10:58 Midazolam Hcl 5 Mg/Ml Vial IM 04/11/25 11:01 5 mg ONCE ONE Administration Medical Decision Making Medical Decision Making [facility] Narrative: Patient is a 55 year old assigned male at with a history of heroin use presenting to the emergency department today after an overdose. Patient's physical exam showed a spastic and agitated individual with periods of apnea. Patient did have a small abrasion to the lobe of his right ear however, there is no other evidence of trauma and the patient - when awake, is able to answer questions appropriately. Patient's CT head is pending at this time. Patient was given intranasal narcan and his periods of apnea resolved however, patient remained spastic and agitated. Patient was given valium, haldol, and benadryl as well as mechanically restrained for a brief period of time. Patient was then resting calmly with supplemental oxygen applied. Patient will remain in the department, under observation, pending recovery from his overdose and awaiting his CT of the head and c-spine. Patient signed out to SURENDRA Frazier. Differential Diagnosis Differential Diagnoses: The differential diagnosis associated with the presentation includes Opiate overdose Polysubstance use Admission/Observation Consideration of admission/observation: Escalation of care including admission/observation considered Patient's disposition will be determined after CT head and c-spine are completed and resulted. Lab Data [facility] Lab Attestation statement: I reviewed the patient's lab results. My interpretation of these results are in the MDM Rationale portion of this note. 04/11/25 11:11 04/11/25 11:11 Labs: Lab Results 04/11/25 04/11/25 04/11/25 Range/Units 10:53 10:54 11:11 WBC 7.4 (4.8-10.8) X10*3/uL RBC 4.58 L (4.60-5.80) X10*6/uL Hgb 13.3 L (14.0-18.0) g/dl Hct 38.7 L (42.0-52.0) % MCV 84.5 (80.0-98.0) fL MCH 29.0 (27.0-33.0) pg MCHC 34.4 (31.0-36.0) g/dl RDW 13.5 (11.0-16.0) % Plt Count 218 (160-400) X10*3/uL MPV 10.6 (9.4-12.4) fL Immature Gran % (Auto) 0.3 (0.0-0.4) % Neut % (Auto) 69.3 (45-73) % Lymph % (Auto) 13.2 L (20-40) % [place] % (Auto) 6.1 (2-11) % Eos % (Auto) 10.4 H (0-4) % Baso % (Auto) 0.7 (0-2) % Lymph # (Auto) 1.0 L (1.2-4.9) X10*3/uL [place] # (Auto) 0.5 (0.1-1.2) X10*3/uL Eos # (Auto) 0.8 H (0.0-0.4) X10*3/uL Baso # (Auto) 0.1 (0.0-0.2) X10*3/uL Abs Immat Gran (auto) 0.02 (0.00-0.03) X10*3/uL Absolute Neuts (auto) 5.1 (2.0-8.3) x10*3/uL Absolute Nucleated RBC 0.000 (0.0-0.012) X10*3/uL Nucleated RBC % (auto) 0.0 (0.0-0.2) /100WBC ESR 6 (0-15) MM/HR VBG pH 7.52 H (7.32-7.43) VBG pCO2 40 mmHg VBG pO2 123 mmHg VBG HCO3 33 H (22-26) mmol/L VBG O2 Saturation 100.0 % VBG Base Excess 9.9 mmol/L Sodium 141 (135-145) mmol/L Potassium 3.4 (3.3-5.1) mmol/L Chloride 104 (96-108) mmol/L Carbon Dioxide 31 H (22-29) mmol/L Anion Gap 9 L (12-20) BUN 11 (9-16) mg/dL Creatinine 0.80 (0.5-1.4) mg/dL Estim Creat Clear Calc 126.2 Estimated GFR > 60 POC Glucose 177 H (60-115) mg/dL Random Glucose 188 H (60-115) mg/dL Calcium 9.0 (8.4-10.2) mg/dL Magnesium 1.9 (1.6-2.6) mg/dL Total Bilirubin 0.4 (0.0-1.0) mg/dL AST 40 H (5-37) U/L ALT 33 (0-40) U/L Alkaline Phosphatase 76 (39-117) U/L C-Reactive Protein 1.26 H (< or = 0.50) mg/dL Total Protein 6.6 (6.5-8.0) g/dL Albumin 4.1 (3.5-5.0) g/dL 04/11/25 04/11/25 04/11/25 Range/Units 11:18 15:46 17:18 WBC (4.8-10.8) X10*3/uL RBC (4.60-5.80) X10*6/uL Hgb (14.0-18.0) g/dl Hct (42.0-52.0) % MCV (80.0-98.0) fL MCH (27.0-33.0) pg MCHC (31.0-36.0) g/dl RDW (11.0-16.0) % Plt Count (160-400) X10*3/uL MPV (9.4-12.4) fL Immature Gran % (Auto) (0.0-0.4) % Neut % (Auto) (45-73) % Lymph % (Auto) (20-40) % [place] % (Auto) (2-11) % Eos % (Auto) (0-4) % Baso % (Auto) (0-2) % Lymph # (Auto) (1.2-4.9) X10*3/uL [place] # (Auto) (0.1-1.2) X10*3/uL Eos # (Auto) (0.0-0.4) X10*3/uL Baso # (Auto) (0.0-0.2) X10*3/uL Abs Immat Gran (auto) (0.00-0.03) X10*3/uL Absolute Neuts (auto) (2.0-8.3) x10*3/uL Absolute Nucleated RBC (0.0-0.012) X10*3/uL Nucleated RBC % (auto) (0.0-0.2) /100WBC ESR (0-15) MM/HR VBG pH 7.52 H (7.32-7.43) VBG pCO2 40 mmHg VBG pO2 123 mmHg VBG HCO3 33 H (22-26) mmol/L VBG O2 Saturation 100.0 % VBG Base Excess 9.9 mmol/L Sodium (135-145) mmol/L Potassium (3.3-5.1) mmol/L Chloride (96-108) mmol/L Carbon Dioxide (22-29) mmol/L Anion Gap (12-20) BUN (9-16) mg/dL Creatinine (0.5-1.4) mg/dL Estim Creat Clear Calc Estimated GFR POC Glucose 153 H 131 H (60-115) mg/dL Random Glucose (60-115) mg/dL Calcium (8.4-10.2) mg/dL Magnesium (1.6-2.6) mg/dL Total Bilirubin (0.0-1.0) mg/dL AST (5-37) U/L ALT (0-40) U/L Alkaline Phosphatase (39-117) U/L C-Reactive Protein (< or = 0.50) mg/dL Total Protein (6.5-8.0) g/dL Albumin (3.5-5.0) g/dL 04/11/25 04/11/25 04/11/25 Range/Units 18:30 20:16 22:23 WBC (4.8-10.8) X10*3/uL RBC (4.60-5.80) X10*6/uL Hgb (14.0-18.0) g/dl Hct (42.0-52.0) % MCV (80.0-98.0) fL MCH (27.0-33.0) pg MCHC (31.0-36.0) g/dl RDW (11.0-16.0) % Plt Count (160-400) X10*3/uL MPV (9.4-12.4) fL Immature Gran % (Auto) (0.0-0.4) % Neut % (Auto) (45-73) % Lymph % (Auto) (20-40) % [place] % (Auto) (2-11) % Eos % (Auto) (0-4) % Baso % (Auto) (0-2) % Lymph # (Auto) (1.2-4.9) X10*3/uL [place] # (Auto) (0.1-1.2) X10*3/uL Eos # (Auto) (0.0-0.4) X10*3/uL Baso # (Auto) (0.0-0.2) X10*3/uL Abs Immat Gran (auto) (0.00-0.03) X10*3/uL Absolute Neuts (auto) (2.0-8.3) x10*3/uL Absolute Nucleated RBC (0.0-0.012) X10*3/uL Nucleated RBC % (auto) (0.0-0.2) /100WBC ESR (0-15) MM/HR VBG pH (7.32-7.43) VBG pCO2 mmHg VBG pO2 mmHg VBG HCO3 (22-26) mmol/L VBG O2 Saturation % VBG Base Excess mmol/L Sodium (135-145) mmol/L Potassium (3.3-5.1) mmol/L Chloride (96-108) mmol/L Carbon Dioxide (22-29) mmol/L Anion Gap (12-20) BUN (9-16) mg/dL Creatinine (0.5-1.4) mg/dL Estim Creat Clear Calc Estimated GFR POC Glucose 136 H 115 109 (60-115) mg/dL Random Glucose (60-115) mg/dL Calcium (8.4-10.2) mg/dL Magnesium (1.6-2.6) mg/dL Total Bilirubin (0.0-1.0) mg/dL AST (5-37) U/L ALT (0-40) U/L Alkaline Phosphatase (39-117) U/L C-Reactive Protein (< or = 0.50) mg/dL Total Protein (6.5-8.0) g/dL Albumin (3.5-5.0) g/dL 04/12/25 04/12/25 04/12/25 Range/Units 00:19 06:16 08:22 WBC (4.8-10.8) X10*3/uL RBC (4.60-5.80) X10*6/uL Hgb (14.0-18.0) g/dl Hct (42.0-52.0) % MCV (80.0-98.0) fL MCH (27.0-33.0) pg MCHC (31.0-36.0) g/dl RDW (11.0-16.0) % Plt Count (160-400) X10*3/uL MPV (9.4-12.4) fL Immature Gran % (Auto) (0.0-0.4) % Neut % (Auto) (45-73) % Lymph % (Auto) (20-40) % [place] % (Auto) (2-11) % Eos % (Auto) (0-4) % Baso % (Auto) (0-2) % Lymph # (Auto) (1.2-4.9) X10*3/uL [place] # (Auto) (0.1-1.2) X10*3/uL Eos # (Auto) (0.0-0.4) X10*3/uL Baso # (Auto) (0.0-0.2) X10*3/uL Abs Immat Gran (auto) (0.00-0.03) X10*3/uL Absolute Neuts (auto) (2.0-8.3) x10*3/uL Absolute Nucleated RBC (0.0-0.012) X10*3/uL Nucleated RBC % (auto) (0.0-0.2) /100WBC ESR (0-15) MM/HR VBG pH (7.32-7.43) VBG pCO2 mmHg VBG pO2 mmHg VBG HCO3 (22-26) mmol/L VBG O2 Saturation % VBG Base Excess mmol/L Sodium (135-145) mmol/L Potassium (3.3-5.1) mmol/L Chloride (96-108) mmol/L Carbon Dioxide (22-29) mmol/L Anion Gap (12-20) BUN (9-16) mg/dL Creatinine (0.5-1.4) mg/dL Estim Creat Clear Calc Estimated GFR POC Glucose 108 120 H 128 H (60-115) mg/dL Random Glucose (60-115) mg/dL Calcium (8.4-10.2) mg/dL Magnesium (1.6-2.6) mg/dL Total Bilirubin (0.0-1.0) mg/dL AST (5-37) U/L ALT (0-40) U/L Alkaline Phosphatase (39-117) U/L C-Reactive Protein (< or = 0.50) mg/dL Total Protein (6.5-8.0) g/dL Albumin (3.5-5.0) g/dL 04/12/25 Range/Units 12:19 WBC (4.8-10.8) X10*3/uL RBC (4.60-5.80) X10*6/uL Hgb (14.0-18.0) g/dl Hct (42.0-52.0) % MCV (80.0-98.0) fL MCH (27.0-33.0) pg MCHC (31.0-36.0) g/dl RDW (11.0-16.0) % Plt Count (160-400) X10*3/uL MPV (9.4-12.4) fL Immature Gran % (Auto) (0.0-0.4) % Neut % (Auto) (45-73) % Lymph % (Auto) (20-40) % [place] % (Auto) (2-11) % Eos % (Auto) (0-4) % Baso % (Auto) (0-2) % Lymph # (Auto) (1.2-4.9) X10*3/uL [place] # (Auto) (0.1-1.2) X10*3/uL Eos # (Auto) (0.0-0.4) X10*3/uL Baso # (Auto) (0.0-0.2) X10*3/uL Abs Immat Gran (auto) (0.00-0.03) X10*3/uL Absolute Neuts (auto) (2.0-8.3) x10*3/uL Absolute Nucleated RBC (0.0-0.012) X10*3/uL Nucleated RBC % (auto) (0.0-0.2) /100WBC ESR (0-15) MM/HR VBG pH (7.32-7.43) VBG pCO2 mmHg VBG pO2 mmHg VBG HCO3 (22-26) mmol/L VBG O2 Saturation % VBG Base Excess mmol/L Sodium (135-145) mmol/L Potassium (3.3-5.1) mmol/L Chloride (96-108) mmol/L Carbon Dioxide (22-29) mmol/L Anion Gap (12-20) BUN (9-16) mg/dL Creatinine (0.5-1.4) mg/dL Estim Creat Clear Calc Estimated GFR POC Glucose 115 (60-115) mg/dL Random Glucose (60-115) mg/dL Calcium (8.4-10.2) mg/dL Magnesium (1.6-2.6) mg/dL Total Bilirubin (0.0-1.0) mg/dL AST (5-37) U/L ALT (0-40) U/L Alkaline Phosphatase (39-117) U/L C-Reactive Protein (< or = 0.50) mg/dL Total Protein (6.5-8.0) g/dL Albumin (3.5-5.0) g/dL Independent Interpretation I performed an independent interpretation of an: EKG Interpretation: I independently interpreted this EKG and am in agreement with the below findings: Vent. Rate: 67 BPM Atrial Rate: 67 BPM P-R Int: 136 ms QRS Dur: 94 ms QT Int: 416 ms P-R-T Axes: 57 73 68 degrees QTcB Int: 439 ms Normal sinus rhythm Normal ECG No previous ECGs available DD/ 1059 Independent Historian Clinical information obtained from an independent historian. History obtained from or confirmed by: EMS (EMS provided additional history) Critical Care Time Critical Care Time Critical Care Time: Yes Total Critical Care Time: 51 Attestation: I spent 51 minutes of Critical Care Time with this patient. This does not include time spent on separately reported billable procedures. Discharge Plan Discharge Clinical Impression: Overdose, Agitation, Bilateral conjunctivitis Patient Disposition: Home, Self-Care Instructions: Conjunctivitis (ED) Additional Instructions: You accidentally overdosed on an opiate medication. You were treated with Narcan and this saved your life. You were evaluated by our comprehensive Care Clinic nurse practitioner and she is sending paperwork to the [facility] to try to get you into an methadone treatment program. You received methadone 40 mg orally here in the emergency department on 04/12/2025. Bring the last dose letter with the you to the [facility] Your are being discharged home with intranasal Narcan. If you are going to continue to use heroin, you should make sure that there is a sober person with you that is not using drugs and that this person can administer intranasal Narcan in the event that you stop breathing. Opiate use disorder You were seen in our Emergency Department today for treatment of opiate use disorder. You may have been dosed with medication for opiate use disorder (MOUD) in the form of suboxone or methadone. You may experience feeling some withdrawal symptoms and this is normal. The? dose in the Emergency Department is a starting dose and meant to be titrated up once you follow up with a clinic. Please do not feel discouraged, it is a process. The nurse has reviewed with you where to follow up and what information to bring with you, to continue treatment. You also may have been given naloxone (narcan) to take home with you. This medication is used to potentially treat opiate overdose. If you decide you want to stop or cut down on how much you?re using, you can call or walk into our outpatient Addiction Treatment office: [facility] (M-F 9am-5p) [address] [place] [address], [address] [phone] You may have been provided with safer injection?items, please take time to take care of YOU and your health. Use new supplies whenever possible to lessen the chances of infections and other illnesses.? ?If you need more supplies, please go [facility],? [address] [place] [address] OR you can call or text to coordinate delivery of safer supplies. You were also provided a list of several treatment providers in the area.? If you experience any worsening symptoms you cannot control please return to the ED or call 911. Please follow up at your next appointment. Things to look out for are fevers, chest pain, shortness of breath, severe pain, dizziness, fainting or any other concerns. Prescriptions: New erythromycin 5 mg/gram (0.5 %) ointment 0.5 inch ophthalmic (eye) TID 7 Days Qty: 3.5 0RF No Action methadone [Methadone Intensol] 10 mg/mL Concentrate PO DAILY ammonium lactate 12 % Lotion 1 appl topical BID Qty: 225 0RF Protocol: Apply to: Apply to: upper and lower extremities gabapentin 100 mg Capsule 100 mg PO BID Qty: 60 0RF Eliquis 5 mg Tablet 10 mg PO BID Qty: 14 0RF doxycycline monohydrate 100 mg capsule 100 mg PO BID Qty: 14 0RF Eliquis 5 mg tablet 5 mg PO BID Qty: 180 1RF amoxicillin-pot clavulanate 875-125 mg tablet 1 tab PO BID Qty: 14 0RF doxycycline hyclate 100 mg tablet 100 mg PO BID Qty: 20 0RF tobramycin 0.3 % drops 2 drp ophthalmic-Left Q4H Qty: 5 0RF Print Language: [place]dean
--- NOTE | 2025-04-11 10:50 | ECG_ITS ---
Test Reason : altered, QTC eval Blood Pressure : */* mmHG Vent. Rate : 67 BPM Atrial Rate : 67 BPM P-R Int : 136 ms QRS Dur : 94 ms QT Int : 416 ms P-R-T Axes : 57 73 68 degrees QTcB Int : 439 ms Normal sinus rhythm Normal ECG No previous ECGs available Referred By: Mahnaz Chaudhary Electronically Signed By:
[2025-04-11 10:58] LABS: Glucose, Whole Blood 177 mg/dL (60-115)
--- NOTE | 2025-04-11 11:10 | MHC.EDTECH ---
[facility] SHELF [facility]
[2025-04-11 11:17] LABS: MANUAL DIFF FLAG NO
[2025-04-11 11:19] LABS: Hematocrit 38.7 % (42.0-52.0); Hemoglobin 13.3 g/dl (14.0-18.0); Imm Gran Abs Auto 0.02 X10*3/uL (0.00-0.03); Imm Gran Pct Auto 0.3 % (0.0-0.4); Lymphocytes Absolute Auto 1.0 X10*3/uL (1.2-4.9); Mean Corpuscular HGB Conc 34.4 g/dl (31.0-36.0); Mean Corpuscular Hemoglobin 29.0 pg (27.0-33.0); Mean Corpuscular Volume 84.5 fL (80.0-98.0); NRBC Abs Auto 0.000 X10*3/uL (0.0-0.012); NRBC Pct Auto 0.0 /100WBC (0.0-0.2); Platelet Count 218 X10*3/uL (160-400); Red Blood Count 4.58 X10*6/uL (4.60-5.80); White Blood Count 7.4 X10*3/uL (4.8-10.8)
[2025-04-11 11:22] LABS: VBG HCO3 33 mmol/L (22-26); VBG O2 % Saturation 100.0 %
[2025-04-11 11:22] LABS: VBG HCO3 33 mmol/L (22-26); VBG O2 % Saturation 100.0 %
[2025-04-11 11:23] LABS: Venous Blood Gas Refer to POC result
--- NOTE | 2025-04-11 11:33 | PC.NURSE ---
Male purewick placed, rectal probe inserted. Care ongoing.
[2025-04-11 11:37] LABS: Alanine Aminotransferase 33 U/L (0-40); Albumin Level 4.1 g/dL (3.5-5.0); Alkaline Phosphatase 76 U/L (39-117); Anion Gap 9 (12-20); Aspartate Amino Transferase 40 U/L (5-37); Blood Urea Nitrogen 11 mg/dL (9-16); Calcium 9.0 mg/dL (8.4-10.2); Carbon Dioxide 31 mmol/L (22-29); Chloride 104 mmol/L (96-108); Creatinine Clr Calc Pharmacy 126.2; Estimated Glomerular Filt Rate > 60; Magnesium 1.9 mg/dL (1.6-2.6); Potassium 3.4 mmol/L (3.3-5.1); Sodium 141 mmol/L (135-145); Total Protein 6.6 g/dL (6.5-8.0)
--- NOTE | 2025-04-11 12:25 | PC.NURSE ---
Pt transferred from current OBGYN stretcher onto a standard ED stretcher. Attempted to remove a restraint but pt became agitated again and is trying to rip at oxygen and monitoring. Pt continues to occasionally yell out incoherently. PA aware, care ongoing.
--- NOTE | 2025-04-11 13:30 | PC.NURSE ---
Attempted to obtain CT, but pt became agitated upon trying to remove restraints to transfer pt to CT table. Pt screaming and fighting staff, not re-directable at this time. Unable to tolerate CT at this time, PA aware, will continue to monitor and attempt again when pt is calm and able to remain still for scan.
[2025-04-11] MEDS: diazePAM 10 MG/2 ML CARTRIDGE 5 MG IVPUSH (13:49)
[2025-04-11 15:50] LABS: Glucose, Whole Blood 153 mg/dL (60-115)
--- NOTE | 2025-04-11 15:50 | MHC.CARE ---
T/W attempted to meet with patient for recovery/behavioral health assessment. Patient unable to engage at this time.
[2025-04-11 17:26] LABS: Glucose, Whole Blood 131 mg/dL (60-115)
[2025-04-11 18:42] LABS: Glucose, Whole Blood 136 mg/dL (60-115)
[2025-04-11 20:21] LABS: Glucose, Whole Blood 115 mg/dL (60-115)
[2025-04-11 22:30] LABS: Glucose, Whole Blood 109 mg/dL (60-115)
--- NOTE | 2025-04-11 23:10 | PC.NURSE ---
assumed care of patient at this time, pt in stretcher no apparent distress noted
[2025-04-12] VITALS (9 sets, daily range): BP systolic 119–169; BP diastolic 62–85; PULSE 61–88; RESP 16–20; TEMP 37–38.1; O2SAT 85–98
[2025-04-12 00:24] LABS: Glucose, Whole Blood 108 mg/dL (60-115)
--- NOTE | 2025-04-12 03:54 | PC.NURSE ---
Assumed care of pt approx 0300, resting in bed with eyes closed. Resp even and unlabored. Pt awoke and asked for water, attempting to pnch himself in the head. Water given and pt now resting quietly. Pt removed O2, sat down to 85% PA Freddie aware and 5L O2 applied via Oxymask to maintain O2 sat >90%. Pt voided moderate amount of CYU via condom cath.
[2025-04-12 06:19] LABS: Glucose, Whole Blood 120 mg/dL (60-115)
--- NOTE | 2025-04-12 06:56 | PC.NURSE ---
Pt removed oxy mask, O2 sat 95% on room air. OK to leave on room air per MD Alexandra. CXR pending.
[2025-04-12 08:27] LABS: Glucose, Whole Blood 128 mg/dL (60-115)
--- NOTE | 2025-04-12 11:10 | PC.NURSE ---
Pt maintaining O2 sat >90 on room air, productive cough noted. Requesting cups of water, tolerated PO fluids well.
--- NOTE | 2025-04-12 12:25 | PC.NURSE ---
Pt noted to have temp 100.6 rectal, MD Dale notified.
[2025-04-12 12:28] LABS: Glucose, Whole Blood 115 mg/dL (60-115)
--- NOTE | 2025-04-12 12:38 | PC.NURSE ---
Pt reports feeling as if he is withdrawing. MD notified and at bedside
[2025-04-12] MEDS: methADONE HCl 20 MG/2 ML ORAL.CONC PO ×2 (12:51→14:46)
--- NOTE | 2025-04-12 14:38 | HO.ADDICTCON ---
History of Present Illness Date of Service: 04/12/2025 Chief Complaint: OD, NARCAN, AWAKE, CONFUSED Reason for Consult: overdose --methadone inititation Sources of Information: patient interviewed and chart reviewed HPI Narrative: Patient is a 54 year old male who presented to [facility] following opioid overdose requiring narcan While in ED became increasingly agitated and required chemical restraint Patient now calm, however experiencing acute opiate withdrawal sx, so methadone 40mg X1 ordered by ED provider. Patient seen in main ED. He is laying on stretcher, awake, engaged in interview. He reports he uses 2 -3 bundles usually. Unsure of what he used, or how much prior to coming to ED. He does report history of OD -- a couple . He reports history of MOUD, including methadone, does not recall when a long time ago . He has been medically cleared for discharge from the ED. He would like to continue treatment for OUD at [facility] OT. Medical Evaluation Reviewed: Yes Review of Systems Constitutional: Reports as per HPI Eyes: Reports eye discharge Gastrointestinal: Denies loose stools and Denies nausea Musculoskeletal: Reports myalgias Diagnostics Vital Signs (24Hr): Vital Signs - 24 hr 04/11/25 14:45 04/11/25 15:00 04/11/25 15:15 Temperature 97.7 F 97.5 F Pulse Rate 57 55 57 Respiratory Rate 27 H 28 H 26 H Blood Pressure 141/75 H 140/73 H 141/71 H Pulse Oximetry 96 98 97 Oxygen Delivery Method Oxymask Oxymask Oxymask Oxygen Flow Rate 10 10 10 04/11/25 15:20 04/11/25 15:56 04/11/25 16:20 Temperature 97 F Pulse Rate 52 45 L 46 L Respiratory Rate 22 H 16 17 Blood Pressure 149/89 H 154/84 H 149/89 H Pulse Oximetry 98 99 99 Oxygen Delivery Method Oxymask Oxymask Oxymask Oxygen Flow Rate 10 10 10 04/11/25 16:45 04/11/25 17:30 04/11/25 18:15 Temperature 97.5 F Pulse Rate 45 L 48 L 45 L Respiratory Rate 18 18 17 Blood Pressure 154/85 H 161/91 H 150/87 H Pulse Oximetry 99 99 99 Oxygen Delivery Method Oxymask Oxymask Oxymask Oxygen Flow Rate 10 10 10 04/11/25 19:00 04/11/25 20:00 04/11/25 21:00 Temperature 97.2 F Pulse Rate 55 63 62 Respiratory Rate 18 19 17 Blood Pressure 120/67 144/80 H 119/72 Pulse Oximetry 99 99 98 Oxygen Delivery Method Oxymask Oxymask Oxymask Oxygen Flow Rate 10 10 7 04/12/25 00:13 04/12/25 02:33 04/12/25 03:53 Temperature 98.6 F 99.3 F Pulse Rate 61 67 Respiratory Rate 17 19 Blood Pressure 157/65 H 119/62 Pulse Oximetry 98 95 85 L Oxygen Delivery Method Oxymask Oxymask Room Air Oxygen Flow Rate 2 2 04/12/25 03:53 04/12/25 06:00 04/12/25 06:11 Temperature 99.7 F Pulse Rate 70 Respiratory Rate 16 Blood Pressure 169/85 H Pulse Oximetry 92 95 96 Oxygen Delivery Method Oxymask Oxymask Oxymask Oxygen Flow Rate 5 5 04/12/25 06:57 04/12/25 07:08 04/12/25 12:11 Temperature 100.6 F H Pulse Rate 72 88 Respiratory Rate 20 Blood Pressure 145/78 H Pulse Oximetry 95 94 96 Oxygen Delivery Method Room Air Room Air Room Air Oxygen Flow Rate BMI result Body Mass Index 23.5 Labs 04/11/25 11:11 04/11/25 11:11 Labs: Laboratory Results - last 48 hr 04/11/25 04/11/25 04/11/25 10:53 10:54 11:11 WBC 7.4 RBC 4.58 L Hgb 13.3 L Hct 38.7 L MCV 84.5 MCH 29.0 MCHC 34.4 RDW 13.5 Plt Count 218 MPV 10.6 Immature Gran % (Auto) 0.3 Neut % (Auto) 69.3 Lymph % (Auto) 13.2 L Mckenzie % (Auto) 6.1 Eos % (Auto) 10.4 H Baso % (Auto) 0.7 Lymph # (Auto) 1.0 L Mckenzie # (Auto) 0.5 Eos # (Auto) 0.8 H Baso # (Auto) 0.1 Abs Immat Gran (auto) 0.02 Absolute Neuts (auto) 5.1 Absolute Nucleated RBC 0.000 Nucleated RBC % (auto) 0.0 ESR 6 VBG pH 7.52 H VBG pCO2 40 VBG pO2 123 VBG HCO3 33 H VBG O2 Saturation 100.0 VBG Base Excess 9.9 Sodium 141 Potassium 3.4 Chloride 104 Carbon Dioxide 31 H Anion Gap 9 L BUN 11 Creatinine 0.80 Estim Creat Clear Calc 126.2 Estimated GFR > 60 POC Glucose 177 H Random Glucose 188 H Calcium 9.0 Magnesium 1.9 Total Bilirubin 0.4 AST 40 H ALT 33 Alkaline Phosphatase 76 C-Reactive Protein 1.26 H Total Protein 6.6 Albumin 4.1 04/11/25 04/11/25 04/11/25 11:18 15:46 17:18 WBC RBC Hgb Hct MCV MCH MCHC RDW Plt Count MPV Immature Gran % (Auto) Neut % (Auto) Lymph % (Auto) Mckenzie % (Auto) Eos % (Auto) Baso % (Auto) Lymph # (Auto) Mckenzie # (Auto) Eos # (Auto) Baso # (Auto) Abs Immat Gran (auto) Absolute Neuts (auto) Absolute Nucleated RBC Nucleated RBC % (auto) ESR VBG pH 7.52 H VBG pCO2 40 VBG pO2 123 VBG HCO3 33 H VBG O2 Saturation 100.0 VBG Base Excess 9.9 Sodium Potassium Chloride Carbon Dioxide Anion Gap BUN Creatinine Estim Creat Clear Calc Estimated GFR POC Glucose 153 H 131 H Random Glucose Calcium Magnesium Total Bilirubin AST ALT Alkaline Phosphatase C-Reactive Protein Total Protein Albumin 04/11/25 04/11/25 04/11/25 18:30 20:16 22:23 WBC RBC Hgb Hct MCV MCH MCHC RDW Plt Count MPV Immature Gran % (Auto) Neut % (Auto) Lymph % (Auto) Mckenzie % (Auto) Eos % (Auto) Baso % (Auto) Lymph # (Auto) Mckenzie # (Auto) Eos # (Auto) Baso # (Auto) Abs Immat Gran (auto) Absolute Neuts (auto) Absolute Nucleated RBC Nucleated RBC % (auto) ESR VBG pH VBG pCO2 VBG pO2 VBG HCO3 VBG O2 Saturation VBG Base Excess Sodium Potassium Chloride Carbon Dioxide Anion Gap BUN Creatinine Estim Creat Clear Calc Estimated GFR POC Glucose 136 H 115 109 Random Glucose Calcium Magnesium Total Bilirubin AST ALT Alkaline Phosphatase C-Reactive Protein Total Protein Albumin 04/12/25 04/12/25 04/12/25 00:19 06:16 08:22 WBC RBC Hgb Hct MCV MCH MCHC RDW Plt Count MPV Immature Gran % (Auto) Neut % (Auto) Lymph % (Auto) Mckenzie % (Auto) Eos % (Auto) Baso % (Auto) Lymph # (Auto) Mckenzie # (Auto) Eos # (Auto) Baso # (Auto) Abs Immat Gran (auto) Absolute Neuts (auto) Absolute Nucleated RBC Nucleated RBC % (auto) ESR VBG pH VBG pCO2 VBG pO2 VBG HCO3 VBG O2 Saturation VBG Base Excess Sodium Potassium Chloride Carbon Dioxide Anion Gap BUN Creatinine Estim Creat Clear Calc Estimated GFR POC Glucose 108 120 H 128 H Random Glucose Calcium Magnesium Total Bilirubin AST ALT Alkaline Phosphatase C-Reactive Protein Total Protein Albumin 04/12/25 12:19 WBC RBC Hgb Hct MCV MCH MCHC RDW Plt Count MPV Immature Gran % (Auto) Neut % (Auto) Lymph % (Auto) Mckenzie % (Auto) Eos % (Auto) Baso % (Auto) Lymph # (Auto) Mckenzie # (Auto) Eos # (Auto) Baso # (Auto) Abs Immat Gran (auto) Absolute Neuts (auto) Absolute Nucleated RBC Nucleated RBC % (auto) ESR VBG pH VBG pCO2 VBG pO2 VBG HCO3 VBG O2 Saturation VBG Base Excess Sodium Potassium Chloride Carbon Dioxide Anion Gap BUN Creatinine Estim Creat Clear Calc Estimated GFR POC Glucose 115 Random Glucose Calcium Magnesium Total Bilirubin AST ALT Alkaline Phosphatase C-Reactive Protein Total Protein Albumin Imaging Radiology Impressions: ITS Impressions Chest X-Ray 04/12/25 05:45 IMPRESSION: Bibasilar atelectasis versus pneumonia. Electronically signed by: Jamarcus Buchanan MD 04/12/2025 08:01 AM EDT Mental Status Exam Mental Status Exam Level of Consciousness: Awake, Appropriate and Alert Patient Behavior: Appropriate and Guarded Affect Description: Calm Speech Pattern: Clear Thought Process: Intact Thought Content: positive for Intact Judgement: Fair Medications Allergies Allergies Allergy/AdvReac Type Severity Reaction Status Date / Time Unable to Assess Allergy Unverified 04/11/25 11:23 Assessment & Plan Assessment & Plan (1) Opioid use disorder: Status: Acute Code(s): F11.90 - Opioid use, unspecified, uncomplicated Assessment and Plan: methadone 40mg administered in ED take home narcan senior mechanical engineer to send referral to OTP Overdose prevention discussion with patient Total time managing care of this patient today ___30_ minutes. [facility] Past Medical History Medical History (Updated 04/12/25 @ 16:03 by Neela Oneil CNP) Opioid use disorder Mild intermittent asthma Anxiety Depression Social History Social History Household Members: None Housing: Homeless Do you presently have visiting nurse or other home services: No Unable to assess alcohol history related to: Unable to respond and Unknown Patient Tobacco Use Status: Current everyday Tobacco user Tobacco use type: Cigarette Cigarettes Per Day: 6 Substance Use Type: Crack/Cocaine and Heroin Advance Directives Date on File: 12/28/23 service: No
== END 2025-04-12 15:38 | disposition home or self-care (01) ==
PROVIDERS: Emergency Medicine; Physician Assistant Medical; Emergency Provider Emergency Medicine Emergency Medical Services
DX: T40.1X4A Poisoning by heroin, undetermined, initial encounter (principal); T40.5X4A Poisoning by cocaine, undetermined, initial encounter; R45.1 Restlessness and agitation; Y92.89 Other specified places as the place of occurrence of the external cause; H10.89 Other conjunctivitis
CPT/HCPCS: 36415; 71045; 80053; 82803; 82947; 83735; 85025; 85652; 86140; 93005; 96361; 96372; 96374; 96375; 99285; J1200; J1630; J2250; J3360

== ENCOUNTER → 2025-04-11 22:05 | Outpatient (BNV) | payer OTHER, SELFPAY | PROVIDERS: Emergency Provider Emergency Medicine Emergency Medical Services; Visit Provider Nurse Practitioner Psychiatric/Mental Health | DX: F11.90 Opioid use, unspecified, uncomplicated (principal) | CPT/HCPCS: 99281 ==

== ENCOUNTER → 2025-04-12 06:47 | Outpatient (BNV) | payer MEDICAID, SELFPAY | PROVIDERS: Emergency Provider Emergency Medicine Emergency Medical Services; Visit Provider Radiology Diagnostic Radiology | DX: R09.02 Hypoxemia (principal) | CPT/HCPCS: 71045 ==

== ENCOUNTER 2025-05-01 19:03 | Emergency (ER) | payer MEDICAID, SELFPAY ==
[2025-05-01 19:18] VITALS: BP 109/70; BP 126/84; PULSE 66; PULSE 68; RESP 12; TEMP 36.6; O2SAT 96; BMI 26.6
--- NOTE | 2025-05-01 19:21 | ED.GENADULT ---
HPI - General Adult General Chief complaint: Overdose Stated complaint: OD Time Seen by Provider: 05/01/25 19:21 Source: EMS Mode of arrival: EMS Limitations: physical limitation (patient is lethargic) History of Present Illness ED Provider: Mahnaz Chaudhary PA-C HPI narrative: Patient is a 54 year old assigned male at with a history of heroin use presenting to the emergency department today after and OD. EMS states that the patient was found down in the community by bystanders who then gave 4mg of intranasal narcan. Patient awake enough to state that he needs to urinate and he used heroin today. Patient lethargic and will not answer any ROS or HPI questions. Related Data Home Medications ?Medication ?Instructions ?Recorded ?Confirmed methadone 10 mg/mL oral mg PO DAILY 12/21/23 concentrate (Methadone Intensol) Previous Rx's ?Medication ?Instructions ?Recorded ammonium lactate 12 % lotion 1 appl topical BID #225 grams 12/27/23 amoxicillin 875 mg-potassium 1 tab PO BID #14 tabs 12/27/23 clavulanate 125 mg tablet apixaban 5 mg tablet (Eliquis) 5 mg PO BID #180 tabs 12/27/23 apixaban 5 mg tablet (Eliquis) 10 mg (2 x 5 mg) PO BID #14 tabs 12/27/23 doxycycline monohydrate 100 mg 100 mg PO BID #14 caps 12/27/23 capsule gabapentin 100 mg capsule 100 mg PO BID #60 caps 12/27/23 doxycycline hyclate 100 mg tablet 100 mg PO BID #20 tabs 04/22/24 tobramycin 0.3 % eye drops 2 drp ophthalmic-Left Q4H #5 mL 04/22/24 erythromycin 5 mg/gram (0.5 %) eye 0.5 inch ophthalmic (eye) TID 7 04/12/25 ointment days #3.5 grams Allergies Allergy/AdvReac Type Severity Reaction Status Date / Time Unable to Assess Allergy Verified 05/01/25 19:27 Review of Systems Constitutional: Constitutional: Reports as per HPI Eyes: Eyes: Reports as per HPI ENT: Reports as per HPI Cardiovascular: Cardiovascular: Reports as per HPI Respiratory: Respiratory: Reports as per HPI Gastrointestinal: Gastrointestinal: Reports as per HPI Genitourinary: Genitourinary: Reports as per HPI Musculoskeletal: Musculoskeletal: Reports as per HPI Integumentary/Breasts: Skin/Breast: Reports as per HPI Neurologic: Reports as per HPI Psychiatric: Psychiatric: Reports as per HPI Endocrine: Endocrine: Reports as per HPI Hematologic/Lymphatic: Hematologic/Lymphatic: Reports as per HPI Allergic/Immunologic: Allergic/Immunologic: Reports as per HPI COUNT INCLUDES THE [facility] Past Medical History Attestation statement: The following information was validated with the patient. Source: old records reviewed and nursing notes reviewed Medical History Opioid use disorder Mild intermittent asthma Anxiety Depression Social History Social History Household Members: None Housing: Homeless Do you presently have visiting nurse or other home services: No Unable to assess alcohol history related to: Unable to respond and Unknown Patient Tobacco Use Status: Current everyday Tobacco user Tobacco use type: Cigarette Cigarettes Per Day: 6 Substance Use Type: Crack/Cocaine and Heroin Advance Directives: Yes Advance Directives on File: Yes Advance Directives Date on File: 12/28/23 Do you have a plan to hurt others: No Plan service: No Physical Exam ED Vital Signs: Vital Signs - 24 hr 05/01/25 19:18 05/01/25 20:09 05/01/25 21:49 Temperature 97.8 F 97.9 F Pulse Rate 66 66 68 Respiratory Rate 12 15 13 Blood Pressure 109/70 119/83 132/73 Pulse Oximetry 96 95 95 Oxygen Delivery Method Nasal Cannula Room Air Room Air Oxygen Flow Rate 2 05/01/25 22:03 05/01/25 23:42 05/02/25 00:00 Temperature 97.9 F 97.7 F Pulse Rate 66 59 63 Respiratory Rate 12 24 H 13 Blood Pressure 134/86 128/71 130/76 Pulse Oximetry 94 95 91 L Oxygen Delivery Method Nasal Cannula Nasal Cannula with ETCO2 Nasal Cannula Oxygen Flow Rate 2 2 3 05/02/25 01:17 05/02/25 04:00 05/02/25 06:00 Temperature 98.0 F Pulse Rate 58 66 56 Respiratory Rate 13 14 12 Blood Pressure 130/75 139/84 140/80 H Pulse Oximetry 96 94 98 Oxygen Delivery Method Nasal Cannula Nasal Cannula Nasal Cannula Oxygen Flow Rate 2 2 2 05/02/25 08:28 Temperature 98.5 F Pulse Rate 91 Respiratory Rate 20 Blood Pressure 114/81 Pulse Oximetry 100 Oxygen Delivery Method Room Air Oxygen Flow Rate BMI result Body Mass Index 26.6 Const General: no acute distress and lethargic Orientation/consciousness: lethargic HENNV Head: Yes normal to inspection Ears: hearing grossly normal bilaterally General nose exam: Normal external nose present Face and sinus: Yes normal facial exam Mouth: Normal oral and palatal mucosa present Eyes Periorbital: periorbital findings normal Eyelids: Yes eyelids normal Pupils: Equal, round and reactive pupils present Chest Chest palpation & inspection: normal inspection of the chest Resp Effort & Inspection: normal respiratory effort Cardio Rate: regular rate Rhythm: regular rhythm Neuro Cranial nerves: Yes Equal, round and reactive pupils present Medications Administered Discontinued Medications Generic Name Dose Route Start Last Admin Trade Name Freq PRN Reason Stop Dose Admin Naloxone HCl 8 mg 05/01/25 21:15 05/02/25 08:28 Naloxone Hcl Nasal Take Home 4 Mg [place] NOSTRILALT 05/01/25 21:16 Not Given ONCE ONE Medical Decision Making Medical Decision Making [facility] Narrative: Patient is a 54 year old assigned male at with a history of heroin use presenting to the emergency department today after and OD. Patient's physical exam showed a lethargic individual who was arousable to physical and verbal stimuli. Patient's clinical presentation is most consistent with an accidental opiate overdose, likely containing the dex contaminant. Patient maintaining his airway well. Patient non-toxic appearing. Patient placed in observation at 1922. Patient awaiting clinical sobriety and SUDE. Differential Diagnosis Differential Diagnoses: The differential diagnosis associated with the presentation includes Accidental opiate overdose Admission/Observation Consideration of admission/observation: Escalation of care including admission/observation considered Patient would have been admitted to the hospital had his clinical presentation warranted hospital admission. Lab Data [facility] Lab Attestation statement: I reviewed the patient's lab results. My interpretation of these studies and their corresponding values is that they are grossly normal. Labs: Lab Results 05/01/25 05/01/25 05/01/25 Range/Units 20:13 22:06 23:44 POC Glucose 148 H 128 H 111 (60-115) mg/dL 05/02/25 05/02/25 Range/Units 04:28 06:07 POC Glucose 91 79 (60-115) mg/dL Independent Historian Clinical information obtained from an independent historian. History obtained from or confirmed by: EMS (EMS provided additional history) Discharge Plan Discharge Clinical Impression: Accidental overdose Patient Disposition: Xfer Other Transfer Details: Detox facility Prescriptions: No Action methadone [Methadone Intensol] 10 mg/mL Concentrate PO DAILY ammonium lactate 12 % Lotion 1 appl topical BID Qty: 225 0RF Protocol: Apply to: Apply to: upper and lower extremities gabapentin 100 mg Capsule 100 mg PO BID Qty: 60 0RF Eliquis 5 mg Tablet 10 mg PO BID Qty: 14 0RF doxycycline monohydrate 100 mg capsule 100 mg PO BID Qty: 14 0RF Eliquis 5 mg tablet 5 mg PO BID Qty: 180 1RF amoxicillin-pot clavulanate 875-125 mg tablet 1 tab PO BID Qty: 14 0RF doxycycline hyclate 100 mg tablet 100 mg PO BID Qty: 20 0RF tobramycin 0.3 % drops 2 drp ophthalmic-Left Q4H Qty: 5 0RF erythromycin 5 mg/gram (0.5 %) ointment 0.5 inch ophthalmic (eye) TID 7 Days Qty: 3.5 0RF Print Language: Colombian
--- OUTSIDE RECORDS SUMMARY | 2025-05-01 19:32 | XMS_ITS | Clinical Summary ---
Author Organization [employer] Address [address] [place] [address] Care Team Providers Care Nurse Practitioner Name Role Phone Unavailable Primary Care Provider Unavailabl e Medications albuterol 108 (90 Base) MCG/ACT inhaler Inhale 2 puffs Every 4-6 hours as needed for wheezing or shortness of breath. Active buprenorphine (Subtex) [address] 2 tablets under the tongue Once per day. Active diphenhydrAMINE (BENADryl) 50 MG tablet Take 50 mg by mouth if needed at bedtime for sleep. Active traZODone (Desyrel) 150 MG tablet Take 1 tablet by mouth at bedtime. Active prazosin (Minipress) 2 MG capsule Take 1 capsule by mouth at bedtime. Active pantoprazole (ProtoNix) 40 MG EC tablet Take 1 tablet by mouth before breakfast. Do not crush, chew, or split. Active Fluticasone-Huseyin meterol (AIRDUO RESPICLICK 55/14 IN) Inhale 1 puff in the morning and 1 puff in the evening. Active cromolyn (Nasachrom) 5.2 MG/ACT nasal spray Administer 1 spray into each nostril in the morning and 1 spray at noon and 1 spray in the evening. Active cloNIDine (Catapres) 0.1 MG tablet Take 1 tablet by mouth 2 times daily. Active Active Problems Problem Noted Date Diagnosed Date Moderate persistent asthma 02/27/2025 Overview (02/27/2025): - albuterol 108 (90 Base) MCG/ACT inhaler - cromolyn (Nasachrom) 5.2 MG/ACT nasal spray - Fluticasone-Salmeterol (AIRDUO RESPICLICK 55/14 IN) Substance abuse 02/27/2025 Anxiety and depression 02/27/2025 History of DVT (deep vein thrombosis) 02/27/2025 History of pulmonary embolus (PE) 02/27/2025 Other specified health status 02/27/2025 Overview (02/27/2025): -next comprehensive annual evaluation due after -eye care facilitated by -dental home is -baljeet care proxy Opioid use disorder 02/20/2025 Encounters Date Type Department Care Team Description 02/27/2025 Telephone [facility] MEDICINE [address] [place] [id number] Kami Denney MD No Show 02/26/[address] [phone] Kami Denney MD CHART PREP 02/15/[address] [phone] Isabel Guardado RN 02/12/2025 Patient Outreach [address] [phone] Kami Denney MD Transition Of Care (Tcm) (STATE ARCHIVIST/HDF scheduled) from Last 3 Months Immunizations Immunization Administration Dates Next Due Influenza Quadrivalent Adjuvanted 08/26/2022 Influenza, seasonal, injectable, preservative fr ee 11/14/2024 Pneumococcal Conjugate PCV 20 11/28/2024 Td (adult), 5 Lf tetanus tox oid, preservative free, adsorbed 05/13/2014 Social History Tobacco Use Types Packs/Day Years Used Date Smoking Tobacco: Never Assessed Sex and Gender Information Value Date Recorded Sex Assigned at Male 07/05/2022 10:17 AM EDT Legal Sex Male 10:17 AM EDT Gender Identity Male 07/05/2022 10:17 AM EDT Sexual Orientation Choose not to disclose 2021 10:17 AM EDT Plan of Treatment Health Maintenance Due Date Last Done Comments CT Colonography 1972 Colonoscopy 1972 Colorectal Cancer Screening 1972 Depression Screening 1972 FIT DNA/Cologuard 1972 FIT 1972 FOBT 1972 HIV Screening 1972 Lipid Panel 1972 SDOH Screening 1972 Sigmoidoscopy 1972 Disability Screening 1972 Alcohol/Substance Use Screening 1984 Tobacco Screening 1984 Family Planning (PISQ) 1987 Hepatitis C Screening 1990 Hepatitis B Vaccines (1 of 3 - 19+ 3-dose series) 1991 DTaP/Tdap/Td Vaccines (1 - Tdap) 05/14/2014 05/13/2014 Zoster Vaccines (1 of 2) 2022 COVID-19 Vaccine (3 - 2023-2 5 season) 2024 10/05/2021, 08/06/2021 Influenza Vaccine (#1) 2025 , 08/26/2022 RSV Patients and Patients Aged 60 years or older (1 - 1-dose 75+ series) 2047 Pneumococcal Vaccine: 50+ Years Completed 11/28/2024 HIB Vaccines Aged Out No longer eligi ble based on patient's age to complete this topic HPV Vaccines Aged Out No longer eligi ble based on patient's age to complete this topic Hepatitis A Vaccines Aged Out No long er eligible based on patient's age to complete this topic IPV Vaccines Aged Out No longer eligi ble based on patient's age to complete this topic Meningococcal B Vaccine Aged Out No l onger eligible based on patient's age to complete this topic Meningococcal Vaccine Aged Out No bib clarke eligible based on patient's age to complete this topic RSV under 20 months Aged Out No longe r eligible based on patient's age to complete this topic Rotavirus Vaccines Aged Out No longer eligible based on patient's age to complete this topic Insurance [address] [place] [address] [facility]
[2025-05-01 20:09] VITALS: BP 119/83; PULSE 66; RESP 15; TEMP 36.6; O2SAT 95
[2025-05-01 20:17] LABS: Glucose, Whole Blood 148 mg/dL (60-115)
[2025-05-01 21:49] VITALS: BP 132/73; PULSE 68; RESP 13; O2SAT 95
[2025-05-01 22:03] VITALS: BP 134/86; PULSE 66; RESP 12; TEMP 36.6; O2SAT 94
--- NOTE | 2025-05-01 22:29 | MHC.CARE ---
CARE Team attempted to meet with patient for a Recovery assessment. Patient is unengaged, barely responding to clinician. In speaking with the ED MD, it appears patient was to be discharged once he sobered and awakened. CARE Team made ED MD aware a Recovery consult had been placed on patient's behalf by the previous MD, so the team would make an additional attempt to meet with patient in a few hours. If patient is unresponsive, he will be discharged without an evaluation from the CARE Team.
[2025-05-01 23:42] VITALS: BP 128/71; PULSE 59; RESP 24; TEMP 36.5; O2SAT 95
[2025-05-01 23:51] LABS: Glucose, Whole Blood 111 mg/dL (60-115)
[2025-05-01 23:51] LABS: Glucose, Whole Blood 128 mg/dL (60-115)
[2025-05-02] VITALS: BP 130/76; PULSE 63; RESP 13; O2SAT 91
[2025-05-02 01:17] VITALS: BP 130/75; PULSE 58; RESP 13; O2SAT 96
[2025-05-02 04:00] VITALS: BP 139/84; PULSE 66; RESP 14; O2SAT 94
[2025-05-02 04:34] LABS: Glucose, Whole Blood 91 mg/dL (60-115)
[2025-05-02 06:00] VITALS: BP 140/80; PULSE 56; RESP 12; TEMP 36.7; O2SAT 98
[2025-05-02 06:13] LABS: Glucose, Whole Blood 79 mg/dL (60-115)
[2025-05-02 08:28] VITALS: BP 114/81; PULSE 91; RESP 20; TEMP 36.9; O2SAT 100
--- NOTE | 2025-05-02 08:37 | MHC.CARE ---
Pt will D/C to [facility] via [employer]
[2025-05-02 08:46] LABS: Cannabinoid Screen Urine Not Detected (Not Detect)
--- NOTE | 2025-05-02 09:00 | PC.NURSE ---
Resumed care of patient at 0700, he was resting but did awake when staff called his name. Pt knows where he is and that he OD yesterday. reports he snorts two bundles of heroin daily. Pt had careteam at bedside who lifted him to [facility] for an intake. Pt given belongings from [employer] and escorted out of ED to [facility] at this time.
[2025-05-02 09:02] VITALS: BP 114/81; PULSE 91; RESP 20; TEMP 36.9; O2SAT 100
== END 2025-05-02 09:03 | disposition other institution (70) ==
PROVIDERS: Physician Assistant Medical; Emergency Provider Student in an Organized Health Care Education/Training Program
DX: T40.601A Poisoning by unspecified narcotics, accidental (unintentional), initial encounter (principal); R53.83 Other fatigue; Y92.9 Unspecified place or not applicable; J45.909 Unspecified asthma, uncomplicated; F41.9 Anxiety disorder, unspecified; Z79.899 Other long term (current) drug therapy
CPT/HCPCS: 80307; 82947; 99285; S9485